=== PATIENT | female | born 1960 | race Caucasian/White ===

== ENCOUNTER → 2016-10-08 | Outpatient (CLI) | payer OTHER, MEDICARE ==
[~2016-10-08] MED LIST: /BACL20TA PO; /PROM25SU; /ROPI25TA PO; AMIT25TA10 PO; AMIT25TA2; AMIT25TA2 PO; CALCCHW12 PO; CENTTAB PO; CLAR10CA3 PO; FISH1000 PO; GABA300C2 PO; GABA300C3 PO; IBUP400T; IBUP600T; LEVO100T7 PO; LIDO5DIS; LIDO5DIS TD; MULTIVIT PO; POTA10TA7 PO; POTA99TA PO; PRIL20CA OR; PRIL20CA PO; PROVIGIL; THERGRAN PO; THYROID MEDICATION; VICO5TAB PO; VITA100T5 PO; VITA400C PO; VITA500046 PO; VITAMIN B COMPLE1 PO; VOLTAREN GEL; [UNRECOGNIZED DRUG - OTHER] PO; [UNRECOGNIZED DRUG - OTHER] PO
--- NOTE | 2016-10-25 02:26 | ECWPNPC ---
PATIENT NAME: RAYRAY SERRA : 1960 GENDER: FEMALE VISIT DATE: 10/08/2016 DISCHARGE DATE: 10/08/16 1510 VISIT LOCKED DATE TIME: PHYSICIAN: CHERRI BRASHER RESOURCE: CHERRI BRASHER REASON FOR APPOINTMENT 1. NECK HISTORY OF PRESENT ILLNESS HISTORY OF PRESENT ILLNESS: PAIN THE PATIENT DESCRIBES THE PAIN... FALL RISK SCREENING: SCREENING :NO FALLS IN THE PAST YEAR TODAY'S VISIT: NOTES: FOLLOWUP FOR NECK PAIN. RATES PAIN TODAY 03/11. HAS NOT BEEN SLEEPING WELL DUE TO PAIN. IS HAVING SIGNIFICAN PAIN RADIATING TO RIGHT ARM AND HAND. IS HAVINGMORE WEAKNESS AND CAN'T LIFT ANYTHING MORE THAN A FEW LBS ON RIGHT. . CURRENT MEDICATIONS TAKING LEVOTHYROXINE SODIUM 100 MCG TABLET 1 TAB(S) ORALLY ONCE A DAY TAKING NEXIUM 40 MG CAPSULE DELAYED RELEASE 1 CAPSULE ORALLY OCC. TAKING LIDOCAINE 5 % PATCH 2 PATCHS TO INTACT SKIN REMOVE AFTER 12 HOURS EXTERNALLY ON 12 HRS/OFF 12 HRS TO NECK AREA MDD=2 TAKING GABAPENTIN 300 300 MG TABLET 1 TABLET ORAL TID TAKING AMITRIPTYLINE HCL 25 MG TABLET 3 TABLET ORALLY QHS TAKING BACLOFEN 20 MG TABLET 1 TAB(S) ORALLY THREE TIMES A DAY TAKING NORCO 5-325 MG TABLET 1 TABLET ORALLY EVERY 4 HRS PRN PAIN MDD=6 CHRONIC PAIN TAKING FLUOXETINE 40 MG CAPSULE 1 CAPSULE IN THE MORNING ORALLY ONCE A DAY NOT-TAKING VITAMIN D 2000 UNIT TABLET 1 TABLET ORALLY ONCE A DAY NOT-TAKING FLUOXETINE HCL 20 MG CAPSULE 1 CAPSULE IN THE MORNING ORALLY ONCE A DAY NOT-TAKING ELAVIL 25MG TABLET 1 TAB(S) ORAL ONCE A DAY NOT-TAKING HYDROCODONE-ACETAMINOPHEN 5-325 MG TABLET 1 TABLET ORALLY EVERY 4 HOURS PRN PAIN MDD=6, NOTES: 0600 NOT-TAKING MULTIVITAMINS OTC TABLET 1 TAB(S) ORALLY OCC. NOT-TAKING CALCIUM 600 + D 600-400 MG-UNIT TABLET 1 TABLET ORALLY OCC. NOT-TAKING POTASSIUM OTC TABLET 1 TAB(S) ORALLY EVERY OTHER DAY NOT-TAKING VITAMIN D-3 5000 UNIT CAPSULE 1 CAPSULE ORALLY ONCE A DAY NOT-TAKING VIIBRYD 40 MG TABLET 1 TAB WITH FOOD PO ONCE DAILY MEDICATION LIST REVIEWED AND RECONCILED WITH THE PATIENT PAST MEDICAL HISTORY MYOFASCIAL PAIN SYNDROME IN HER BACK HYPOTHYROIDISM DEGENERATIVE DISC DISEASE THORACIC OUTLET SYNDROME PERIMENOPAUSAL, SYMPTOMATIC DEPRESSION FIBROMYALGIA VERTIGO ALLERGIES N.K.D.A. 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 NEW PATIENT PAIN DIARY TODAY'S VISITNOTES FROM 0-10, WHAT LEVEL IS YOUR PAIN TODAY?0 PAIN CLINIC PFS, CLERGY, PUBLIC HEALTH REFERRALS PFS REFERRAL NEEDED?NO CLERGY REFERRAL NEEDED?NO PUBLIC HEALTH REFERRAL NEEDED?NO WAS THE PROVIDER NOTIFIED OF ANY PERTINENT INFO?NO PFS REFERRAL NEEDED?NO CLERGY REFERRAL NEEDED?NO PUBLIC HEALTH REFERRAL NEEDED?NO WAS THE PROVIDER NOTIFIED OF ANY PERTINENT INFO?NO REVIEW OF SYSTEMS CONSTITUTIONAL: ANY CHANGE IN YOUR MEDICAL CONDITION? NO . CHILLS NO . FEVER NO . INFECTION: DO YOU HAVE NEW INFECTIONS? NO . DO YOU HAVE HISTORY OF MRSA? NO . MUSCULOSKELETAL: ANY NEW PATTERNS OF PAIN OR NUMBNESS? NO . GASTROENTEROLOGY: ANY NEW CHANGE IN BOWEL CONTROL? NO . GENITOURINARY: ANY NEW CHANGE IN BLADDER CONTROL? NO . IS THERE A CHANCE YOU COULD BE ? NO . HEMATOLOGY/LYMPH: DO YOU TAKE ANY BLOOD THINNERS? (FOR EXAMPLE- COUMADIN, PLAVIX, AGGRENOX, PLATEL, PRADAXA, OR XARELTO) NO . WHEN WAS YOUR LAST DOSE? DATE: TIME: . NEUROLOGY: HAVE YOU FALLEN IN THE PAST 6 MONTHS? NO . ANY NEW EXTREMITY NUMBNESS OR WEAKNESS? NO . CARDIOLOGY: DO YOU HAVE A PACEMAKER OR DEFIBRILLATOR? NO . RESPIRATORY: HAVE YOU BEEN SICK IN THE PAST WEEK? NO . FEVER NO . FLU LIKE SYMPTOMS? NO . COUGH NO . INTEGUMENTARY: DO YOU HAVE ANY RASHES OR OPEN SORES? NO . ALLERGIC/IMMUNO: ARE YOU ALLERGIC TO SHELLFISH OR IV DYE? NO . ANY NEW ALLERGIES? NO . PSYCHIATRIC: DO YOU HAVE THOUGHTS OF HURTING YOURSELF OR SOMEONE ELSE? NO . ARE YOU ABUSED, NEGLECTED, OR IN AN UNSAFE ENVIRONMENT? NO . ENDOCRINOLOGY: ARE YOU DIABETIC? NO . OTHER: DO YOU NEED ANY PRESCRIPTIONS? YES HYDROCODONE, AMITRIPTYLIN, LIDOCAINE PATCH . IF YES, PLEASE LIST: ____ . ANY NEW PROBLEMS WITH YOUR MEDICATIONS? NO . WHEN DID YOU LAST EAT? ____ . WHEN DID YOU LAST DRINK? ____ . WHAT DID YOU LAST DRINK? ____ . NAME OF PERSON DRIVING YOU HOME? ____ . DO YOU HAVE ANY OTHER QUESTIONS OR CONCERNS NO . REVIEWED BY: PROVIDER: CHERRI GAONA . VITAL SIGNS WT 155.2 LBS, HT 62 1/2, BMI 27.93 INDEX, BP 135/77 MM HG, HR 103 /MIN, RR 16 /MIN, TEMP 98.2 F, OXYGEN SAT % 99, NA INITIALS TL 1414, REVIEWED BY: KG. EXAMINATION GENERAL EXAMINATION: PSYCHALERT , ORIENTED X 3 , APPROPRIATE MOOD AND AFFECT . LUNGS:CLEAR TO AUSCULTATION BILATERALLY. HEART:HEART RATE REGULAR. MUSCULOSKELETAL:TRIGGER POINTS:, ELICITED WITH PALPATION OVER CERVICAL SPINOUS PROCESSES AND ACROSS THE TRAPEZIUS MUSCLES BILATERALLY. RESTRICTION OF ROM IS NOTED.TENDER WITH PALPATION OVER CERVICAL SPINOUS PROCESSES AND ACROSS TRAPEZIUS BILATERALLY. MUSCLE STRENGTH 4+ OVER 5 RIGHT UPPER EXTREMITY DISTALLY AND PROXIMALLY. MUSCLE STRENGTH 5 OVER 5 DISTALLY AND PROXIMALLY IN THE LEFT UPPER EXTREMITY.. ASSESSMENTS MYALGIA - M79.1 (PRIMARY) CERVICALGIA - M54.2 CHRONIC PRESCRIPTION OPIATE USE - Z79.899 TREATMENT MYALGIA REFILL LIDOCAINE PATCH, 5 %, 2 PATCHS TO INTACT SKIN REMOVE AFTER 12 HOURS, EXTERNALLY, ON 12 HRS/OFF 12 HRS TO NECK AREA MDD=2, 30 DAY(S), 60, REFILLS 5 REFILL AMITRIPTYLINE HCL TABLET, 25 MG, 3 TABLET, ORALLY, QHS, 90 DAY(S), 90, REFILLS 3 REFILL NORCO TABLET, 5-325 MG, 1 TABLET, ORALLY, EVERY 4 HRS PRN PAIN MDD=6 CHRONIC PAIN, 30 DAY(S), 180, REFILLS 0 START VALIUM TABLET, 5 MG, 1 TABLET NEEDED, ORALLY, Q 8 HRS FOR SEVERE SPASM MDD=3S, 30 DAY(S), 10, REFILLS 0 [facility] MRI SPINE, CERVICAL WITHOUT [id number],SUSAN M 10/08/2016 2:52:20 PM > INCREASED RADICULAR SYMPTOMS, CERVICAL DISC DISPLACEMENT , UPPER EXT WEAKNESS TRIGGER POINT 3 + CHERRI FIGUEROA 10/08/2016 2:50:42 PM > NECK TAPEZIUS BOTH SIDES NOTES: HEAT/ICE TO NECK AREA. DO STRETCHES TOLERATED. CPNTINUE CURRENT MEDS. PROCEDURES PN WORKMANS' COMP OPINION IN YOUR OPINION, WAS THE INCIDENT THAT THE PATIENT DESCRIBED THE COMPETENT MEDICAL CAUSE OF THIS INJURY/ILLNESS? YES ARE THE PATIENT'S COMPLAINTS CONSISTENT WITH HIS/HER HISTORY OF THE INJURY/ILLNESS? YES IS THE PATIENT'S HISTORY OF THE INJURY/ILLNESS CONSISTENT WITH YOUR OBJECTIVE FINDING? YES WHAT IS THE PERCENTAGE OF TEMPORARY IMPAIRMENT? MARKED = 75% IS THE PATIENT WORKING? NO DOCTOR ON SITE: MARJORIE PEARSON MD PROCEDURE CODES FA211 ESTABILISHED PATIENT [facility] CHARGE DISPOSITION & COMMUNICATION FOLLOW UP 6 WEEKS (REASON: WC CHECK AUTH FOR TPI AND MRI) ELECTRONICALLY SIGNED BY PHUONG LUO ON 10/24/2016 AT 01:03 PM EST DISCLAIMER : THIS IS A VISIT SUMMARY EXTRACTED FROM THE [employer] CHART. IT IS NOT A COPY OF THE [employer] PROGRESS NOTE. FANG
== END ==
LOC: M PAIN 14:20
PROVIDERS: ATTEND Nurse Practitioner Family
DX: Z09 Encounter for follow-up examination after completed treatment for conditions other than malignant neoplasm (principal); G89.29 Other chronic pain; M79.1 Myalgia; M54.2 Cervicalgia; E03.9 Hypothyroidism, unspecified; M51.34 Other intervertebral disc degeneration, thoracic region; M96.1 Postlaminectomy syndrome, not elsewhere classified; F32.9 Major depressive disorder, single episode, unspecified; F17.200 Nicotine dependence, unspecified, uncomplicated; Z79.891 Long term (current) use of opiate analgesic; Z79.899 Other long term (current) drug therapy

== ENCOUNTER → 2016-11-30 | Outpatient (CLI) | payer OTHER, MEDICARE ==
[~2016-11-30] MED LIST changes: +GABA-282 PO; -GABA300C3 PO
--- NOTE | 2016-12-13 01:01 | ECWPNPC ---
PATIENT NAME: RAYRAY SERRA : 1960 GENDER: FEMALE VISIT DATE: 11/30/2016 DISCHARGE DATE: 11/30/16 1414 VISIT LOCKED DATE TIME: PHYSICIAN: CHERRI BRASHER RESOURCE: CHERRI BRASHER REASON FOR APPOINTMENT 1. W/C HISTORY OF PRESENT ILLNESS HISTORY OF PRESENT ILLNESS: PAIN THE PATIENT DESCRIBES THE PAIN... FALL RISK SCREENING: SCREENING :NO FALLS IN THE PAST YEAR TODAY'S VISIT: NOTES: FOLLOWUP FOR NECK PAIN. RATES PAIN TODAY 5/10. NOTES PAIN IS CONSTANT, ACHING, TENDER AND SORE. NOTES PAIN IS NOT PROMINENT IN THE RIGHT HAND IT IS AT SOME TIMES. REPORTS MEDICATIONS OF LIDODERM PATCHES, HYDROCODONE, AMITRIPTYLINE AND EFFECTIVE AT KEEPING PAIN MANAGEABLE. DENIES ANY ADVERSE EFFECTS FROM MEDS.. CURRENT MEDICATIONS TAKING LEVOTHYROXINE SODIUM 100 MCG TABLET 1 TAB(S) ORALLY ONCE A DAY TAKING NEXIUM 40 MG CAPSULE DELAYED RELEASE 1 CAPSULE ORALLY OCC. TAKING GABAPENTIN 300 300 MG TABLET 1 TABLET ORAL TID TAKING BACLOFEN 20 MG TABLET 1 TAB(S) ORALLY THREE TIMES A DAY TAKING FLUOXETINE 40 MG CAPSULE 1 CAPSULE IN THE MORNING ORALLY ONCE A DAY TAKING LIDOCAINE 5 % PATCH 2 PATCHS TO INTACT SKIN REMOVE AFTER 12 HOURS EXTERNALLY ON 12 HRS/OFF 12 HRS TO NECK AREA MDD=2 TAKING AMITRIPTYLINE HCL 25 MG TABLET 3 TABLET ORALLY QHS TAKING NORCO 5-325 MG TABLET 1 TABLET ORALLY EVERY 4 HRS PRN PAIN MDD=6 CHRONIC PAIN TAKING VALIUM 5 MG TABLET 1 TABLET NEEDED ORALLY Q 8 HRS FOR SEVERE SPASM MDD=3S TAKING VITAMIN D (ERGOCALCIFEROL) 18042 UNIT CAPSULE 1 CAPSULE ORALLY MONTHLY NOT-TAKING ELAVIL 25MG TABLET 1 TAB(S) ORAL ONCE A DAY DISCONTINUED VITAMIN D 2000 UNIT TABLET 1 TABLET ORALLY ONCE A DAY DISCONTINUED FLUOXETINE HCL 20 MG CAPSULE 1 CAPSULE IN THE MORNING ORALLY ONCE A DAY DISCONTINUED HYDROCODONE-ACETAMINOPHEN 5-325 MG TABLET 1 TABLET ORALLY EVERY 4 HOURS PRN PAIN MDD=6, NOTES: 0600 DISCONTINUED MULTIVITAMINS OTC TABLET 1 TAB(S) ORALLY OCC. DISCONTINUED CALCIUM 600 + D 600-400 MG-UNIT TABLET 1 TABLET ORALLY OCC. DISCONTINUED POTASSIUM OTC TABLET 1 TAB(S) ORALLY EVERY OTHER DAY DISCONTINUED VITAMIN D-3 5000 UNIT CAPSULE 1 CAPSULE ORALLY ONCE A DAY DISCONTINUED VIIBRYD 40 MG TABLET 1 TAB WITH FOOD PO ONCE DAILY MEDICATION LIST REVIEWED AND RECONCILED WITH THE PATIENT PAST MEDICAL HISTORY MYOFASCIAL PAIN SYNDROME IN HER BACK HYPOTHYROIDISM DEGENERATIVE DISC DISEASE THORACIC OUTLET SYNDROME PERIMENOPAUSAL, SYMPTOMATIC DEPRESSION FIBROMYALGIA VERTIGO ALLERGIES N.K.D.A. SOCIAL HISTORY GENERAL: PAIN CLINIC PFS, CLERGY, PUBLIC HEALTH REFERRALS CLERGY REFERRAL NEEDED?NO WAS THE PROVIDER NOTIFIED OF ANY PERTINENT INFO?NO PFS REFERRAL NEEDED?NO PUBLIC HEALTH REFERRAL NEEDED?NO PATIENT: ____. REVIEW OF SYSTEMS CONSTITUTIONAL: ANY CHANGE IN YOUR MEDICAL CONDITION? NO . CHILLS NO . FEVER NO . INFECTION: DO YOU HAVE NEW INFECTIONS? NO . DO YOU HAVE HISTORY OF MRSA? NO . MUSCULOSKELETAL: ANY NEW PATTERNS OF PAIN OR NUMBNESS? NO . GASTROENTEROLOGY: ANY NEW CHANGE IN BOWEL CONTROL? NO . GENITOURINARY: ANY NEW CHANGE IN BLADDER CONTROL? NO . IS THERE A CHANCE YOU COULD BE ? NO . HEMATOLOGY/LYMPH: DO YOU TAKE ANY BLOOD THINNERS? (FOR EXAMPLE- COUMADIN, PLAVIX, AGGRENOX, PLATEL, PRADAXA, OR XARELTO) NO . WHEN WAS YOUR LAST DOSE? DATE: TIME: . NEUROLOGY: HAVE YOU FALLEN IN THE PAST 6 MONTHS? NO . ANY NEW EXTREMITY NUMBNESS OR WEAKNESS? NO . CARDIOLOGY: DO YOU HAVE A PACEMAKER OR DEFIBRILLATOR? NO . RESPIRATORY: HAVE YOU BEEN SICK IN THE PAST WEEK? NO . FEVER NO . FLU LIKE SYMPTOMS? NO . COUGH NO . INTEGUMENTARY: DO YOU HAVE ANY RASHES OR OPEN SORES? YES, HAD A RASH AND TREATED FOR IT. RASH IS GONE. LEFT HIP AND BUTTUCKS . ALLERGIC/IMMUNO: ARE YOU ALLERGIC TO SHELLFISH OR IV DYE? NO . ANY NEW ALLERGIES? NO . PSYCHIATRIC: DO YOU HAVE THOUGHTS OF HURTING YOURSELF OR SOMEONE ELSE? NO . ARE YOU ABUSED, NEGLECTED, OR IN AN UNSAFE ENVIRONMENT? NO . ENDOCRINOLOGY: ARE YOU DIABETIC? NO . OTHER: DO YOU NEED ANY PRESCRIPTIONS? NO . IF YES, PLEASE LIST: ____ . ANY NEW PROBLEMS WITH YOUR MEDICATIONS? NO . WHEN DID YOU LAST EAT? ____ . WHEN DID YOU LAST DRINK? ____ . WHAT DID YOU LAST DRINK? ____ . NAME OF PERSON DRIVING YOU HOME? ____ . DO YOU HAVE ANY OTHER QUESTIONS OR CONCERNS NO . REVIEWED BY: PROVIDER: CHERRI WALKER SUPERVISOR [employer] . VITAL SIGNS WT 157.6 LBS, HT 62 1/2, BMI 28.36 INDEX, BP 109/70 MM HG, HR 101 /MIN, RR 16 /MIN, TEMP 98.5 F, OXYGEN SAT % 93, NA INITIALS AW137, REVIEWED BY: JOSIE. EXAMINATION GENERAL EXAMINATION: PSYCHALERT , ORIENTED X 3 , APPROPRIATE MOOD AND AFFECT . LUNGS:CLEAR TO AUSCULTATION BILATERALLY. HEART:HEART RATE REGULAR. MUSCULOSKELETAL:TRIGGER POINTS:, ELICITED WITH PALPATION OVER CERVICAL SPINOUS PROCESSES AND ACROSS THE TRAPEZIUS MUSCLES BILATERALLY. RESTRICTION OF ROM IS NOTED.TENDER WITH PALPATION OVER CERVICAL SPINOUS PROCESSES AND ACROSS TRAPEZIUS BILATERALLY. MUSCLE STRENGTH 4+ OVER 5 RIGHT UPPER EXTREMITY DISTALLY AND PROXIMALLY. MUSCLE STRENGTH 5 OVER 5 DISTALLY AND PROXIMALLY IN THE LEFT UPPER EXTREMITY.. DIAGNOSTIC TESTS REVIEWEDMRI OF CERVICAL SPINE REVIEWED. ASSESSMENTS MYALGIA - M79.1 (PRIMARY) CERVICALGIA - M54.2 CHRONIC PRESCRIPTION OPIATE USE - Z79.899 TREATMENT MYALGIA NOTES: CONTINUE CURRENT MEDS AND LIDODERM PATCHES. WALK AND DO STRETCHES DAILY. CALL WHEN SCRIPTS NEEDED. CLINICAL NOTES: ISTOP REGISTRY REVIEWED AND DEMNOSTRATES COMPLLIANCE. BRINGS IN MEDICATIONS WHICH IS APPROPRIATE FOR WHAT WAS DISPENSED. RECENT URINE TOXICOLOGY REVIEWED. NO UNAUTHORIZED MEDICATIONS. NO ILLICIT SUBSTANCES AND PRESCRIBED MEDICATIONS WERE PRESENT. PROCEDURES PN WORKMANS' COMP OPINION IN YOUR OPINION, WAS THE INCIDENT THAT THE PATIENT DESCRIBED THE COMPETENT MEDICAL CAUSE OF THIS INJURY/ILLNESS? YES ARE THE PATIENT'S COMPLAINTS CONSISTENT WITH HIS/HER HISTORY OF THE INJURY/ILLNESS? YES IS THE PATIENT'S HISTORY OF THE INJURY/ILLNESS CONSISTENT WITH YOUR OBJECTIVE FINDING? YES WHAT IS THE PERCENTAGE OF TEMPORARY IMPAIRMENT? MARKED = 75% IS THE PATIENT WORKING? NO DOCTOR ON SITE: MARJORIE PEARSON MD PROCEDURE CODES FA211 ESTABILISHED PATIENT [facility] FAC[facility] CHARGE DISPOSITION & COMMUNICATION FOLLOW UP [address] KRISHNAMURTHY (REASON: WC NECK) ELECTRONICALLY SIGNED BY PHUONG LUO ON 12/12/2016 AT 06:36 PM EDT DISCLAIMER : THIS IS A VISIT SUMMARY EXTRACTED FROM THE [employer] CHART. IT IS NOT A COPY OF THE [employer] PROGRESS NOTE. FANG
== END ==
LOC: M PAIN 13:40
PROVIDERS: ATTEND Nurse Practitioner Family
DX: M79.1 Myalgia (principal); M54.2 Cervicalgia; E03.9 Hypothyroidism, unspecified; F32.9 Major depressive disorder, single episode, unspecified; R42 Dizziness and giddiness; G54.0 Brachial plexus disorders; N95.1 Menopausal and female climacteric states; Z79.899 Other long term (current) drug therapy; Z79.891 Long term (current) use of opiate analgesic

== ENCOUNTER → 2017-03-01 | Outpatient (CLI) | payer OTHER, MEDICARE ==
--- NOTE | 2017-03-20 04:41 | ECWPNPC ---
PATIENT NAME: RAYRAY SERRA : 1960 GENDER: FEMALE VISIT DATE: 03/01/2017 DISCHARGE DATE: 03/01/17 1446 VISIT LOCKED DATE TIME: PHYSICIAN: CHERRI BRASHER RESOURCE: CHERRI BRASHER REASON FOR APPOINTMENT 1. BACK HISTORY OF PRESENT ILLNESS HISTORY OF PRESENT ILLNESS: PAIN THE PATIENT DESCRIBES THE PAIN... FALL RISK SCREENING: SCREENING :NO FALLS IN THE PAST YEAR TODAY'S VISIT: NOTES: FOLLOWUP FOR NECK PAIN. NECK PAIN 5/10 TODAY. DESCRIBES PAIN CONSTANT, ACHING, TENDER, THROBBING AND SORE. NOTES STRENGTH NEAR NORMAL TODAY BUT THIS DOES CHANGE. PAIN REMAINS CENTERED OVER BASE OF NECK RITH RADIATION DOWN BOTH ARMS AND OVER SCAPULA. CURRENT MEDICATIONS TAKING LEVOTHYROXINE SODIUM 100 MCG TABLET 1 TAB(S) ORALLY ONCE A DAY TAKING NEXIUM 40 MG CAPSULE DELAYED RELEASE 1 CAPSULE ORALLY OCC. TAKING GABAPENTIN 300 300 MG TABLET 1 TABLET ORAL TID, NOTES: 03/01/17 AT 0700 TAKING LIDOCAINE 5 % PATCH 2 PATCHS TO INTACT SKIN REMOVE AFTER 12 HOURS EXTERNALLY ON 12 HRS/OFF 12 HRS TO NECK AREA MDD=2 TAKING VITAMIN D (ERGOCALCIFEROL) 48554 UNIT CAPSULE 1 CAPSULE ORALLY MONTHLY TAKING BACLOFEN 20 MG TABLET 1 TAB(S) ORALLY THREE TIMES A DAY TAKING VALIUM 5 MG TABLET 1 TABLET NEEDED ORALLY Q 8 HRS FOR SEVERE SPASM MDD=3S, NOTES: LAST MONTH TAKING AMITRIPTYLINE HCL 25 MG TABLET 3 TABLET ORALLY QHS TAKING NORCO 5-325 MG TABLET 1 TABLET ORALLY EVERY 4 HRS PRN PAIN MDD=6 CHRONIC PAIN, NOTES: 03/01/17 AT 0700 TAKING CETIRIZINE HCL 10 MG TABLET 1 TABLET ORALLY ONCE A DAY TAKING SIMVASTATIN 20 MG TABLET 1 TABLET IN THE EVENING ORALLY ONCE A DAY NOT-TAKING FLUOXETINE 40 MG CAPSULE 1 CAPSULE IN THE MORNING ORALLY ONCE A DAY NOT-TAKING ELAVIL 25MG TABLET 1 TAB(S) ORAL ONCE A DAY MEDICATION LIST REVIEWED AND RECONCILED WITH THE PATIENT PAST MEDICAL HISTORY MYOFASCIAL PAIN SYNDROME IN HER BACK HYPOTHYROIDISM DEGENERATIVE DISC DISEASE THORACIC OUTLET SYNDROME PERIMENOPAUSAL, SYMPTOMATIC DEPRESSION FIBROMYALGIA VERTIGO ALLERGIES N.K.D.A. SOCIAL HISTORY GENERAL: TOBACCO USE ARE YOU A:: CURRENT SMOKER , HOW OFTEN DO YOU SMOKE CIGARETTES?: EVERY DAY, HOW MANY CIGARETTES A DAY DO YOU SMOKE?: 11-20, HOW SOON AFTER YOU WAKE UP DO YOU SMOKE YOUR FIRST CIGARETTE?: WITHIN 5 MIN, ARE YOU INTERESTED IN QUITTING?: NOT READY TO QUIT. RECREATIONAL DRUG USE DENIES. CAFFEINE 2 CUPS DAILY. 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 NOW THAT THERE WILL BE A CHANGE IN MGMT, SHE IS PREPARING TO RETURN. . DIET: HAS IMPROVED. INCREASED FRUIT. EXERCISE: NONE. OTHERS AT HOME: SPOUSE, DAUGHTER AND GRANDDAUGHTER AGE 15. ISLAM [id number] PFS, CLERGY, PUBLIC HEALTH REFERRALS PFS REFERRAL NEEDED?NO CLERGY REFERRAL NEEDED?NO PUBLIC HEALTH REFERRAL NEEDED?NO HAS THE PATIENT BEEN EDUCATED REGARDING HIS/HER PLAN OF CARE?YES HAS THE PATIENT BEEN EDUCATED REGARDING PAIN, THE RISK FOR PAIN, THE IMPORTANCE OF EFFECTIVE PAIN MANAGEMENT, AND THE PAIN ASSESSMENT PROCESS?YES DOMESTIC VIOLENCE DENIES. REVIEW OF SYSTEMS REVIEWED BY: PROVIDER: CHERRI GAONA . CONSTITUTIONAL: ANY CHANGE IN YOUR MEDICAL CONDITION? NO . CHILLS NO . FEVER NO . INFECTION: DO YOU HAVE NEW INFECTIONS? NO . DO YOU HAVE HISTORY OF MRSA? NO . MUSCULOSKELETAL: ANY NEW PATTERNS OF PAIN OR NUMBNESS? NO . GASTROENTEROLOGY: ANY NEW CHANGE IN BOWEL CONTROL? NO . GENITOURINARY: ANY NEW CHANGE IN BLADDER CONTROL? NO . IS THERE A CHANCE YOU COULD BE ? NO . HEMATOLOGY/LYMPH: DO YOU TAKE ANY BLOOD THINNERS? (FOR EXAMPLE- COUMADIN, PLAVIX, AGGRENOX, PLATEL, PRADAXA, OR XARELTO) NO . WHEN WAS YOUR LAST DOSE? DATE: TIME: . NEUROLOGY: HAVE YOU FALLEN IN THE PAST 6 MONTHS? NO . ANY NEW EXTREMITY NUMBNESS OR WEAKNESS? NO . CARDIOLOGY: DO YOU HAVE A PACEMAKER OR DEFIBRILLATOR? NO . RESPIRATORY: HAVE YOU BEEN SICK IN THE PAST WEEK? NO . FEVER NO . FLU LIKE SYMPTOMS? NO . COUGH NO . INTEGUMENTARY: DO YOU HAVE ANY RASHES OR OPEN SORES? NO . ALLERGIC/IMMUNO: ARE YOU ALLERGIC TO SHELLFISH OR IV DYE? NO . ANY NEW ALLERGIES? NO . PSYCHIATRIC: DO YOU HAVE THOUGHTS OF HURTING YOURSELF OR SOMEONE ELSE? NO . ARE YOU ABUSED, NEGLECTED, OR IN AN UNSAFE ENVIRONMENT? NO . ENDOCRINOLOGY: ARE YOU DIABETIC? NO . OTHER: DO YOU NEED ANY PRESCRIPTIONS? NO . IF YES, PLEASE LIST: ____ . ANY NEW PROBLEMS WITH YOUR MEDICATIONS? NO . WHEN DID YOU LAST EAT? ____ . WHEN DID YOU LAST DRINK? ____ . WHAT DID YOU LAST DRINK? ____ . NAME OF PERSON DRIVING YOU HOME? ____ . DO YOU HAVE ANY OTHER QUESTIONS OR CONCERNS NO . SKIN: DO YOU HAVE ANY RASHES OR OPEN SORES? INTERMITTANT RASH - UNKNOWN SOURCE. TREATED BY PCP WITH PREDNISONE . VITAL SIGNS WT 155 LBS, HT 62 1/2, BMI 27.90 INDEX, BP 119/69 MM HG, HR 101 /MIN, RR 16 /MIN, TEMP 98.5 F, OXYGEN SAT % 95, NA INITIALS AW 1403, REVIEWED BY: CS. EXAMINATION GENERAL EXAMINATION: PSYCHALERT , ORIENTED X 3 , APPROPRIATE MOOD AND AFFECT . LUNGS:CLEAR TO AUSCULTATION BILATERALLY. HEART:HEART RATE REGULAR. MUSCULOSKELETAL:TRIGGER POINTS:, ELICITED WITH PALPATION OVER CERVICAL SPINOUS PROCESSES AND ACROSS THE TRAPEZIUS MUSCLES BILATERALLY. RESTRICTION OF ROM IS NOTED.TENDER WITH PALPATION OVER CERVICAL SPINOUS PROCESSES AND ACROSS TRAPEZIUS BILATERALLY. MUSCLE STRENGTH 4+ OVER 5 RIGHT UPPER EXTREMITY DISTALLY AND PROXIMALLY. MUSCLE STRENGTH 5 OVER 5 DISTALLY AND PROXIMALLY IN THE LEFT UPPER EXTREMITY.. DIAGNOSTIC TESTS REVIEWEDMRI OF CERVICAL SPINE REVIEWED. ASSESSMENTS MYALGIA - M79.1 (PRIMARY) CERVICALGIA - M54.2 CHRONIC PRESCRIPTION OPIATE USE - Z79.899 TREATMENT MYALGIA NOTES: UTOX TODAY. CONTINUE CURRENT MEDS. USE MASSAGE TO NECK AND SHOULDER AREAS. CLINICAL NOTES: ISTOP REGISTRY REVIEWED AND DEMNOSTRATES COMPLLIANCE. BRINGS IN MEDICATIONS WHICH IS APPROPRIATE FOR WHAT WAS DISPENSED. RECENT URINE TOXICOLOGY REVIEWED. NO UNAUTHORIZED MEDICATIONS. NO ILLICIT SUBSTANCES AND PRESCRIBED MEDICATIONS WERE PRESENT. PROCEDURES PN WORKMANS' COMP OPINION IN YOUR OPINION, WAS THE INCIDENT THAT THE PATIENT DESCRIBED THE COMPETENT MEDICAL CAUSE OF THIS INJURY/ILLNESS? YES ARE THE PATIENT'S COMPLAINTS CONSISTENT WITH HIS/HER HISTORY OF THE INJURY/ILLNESS? YES IS THE PATIENT'S HISTORY OF THE INJURY/ILLNESS CONSISTENT WITH YOUR OBJECTIVE FINDING? YES WHAT IS THE PERCENTAGE OF TEMPORARY IMPAIRMENT? MODERATE TO MARKED = 66.7% IS THE PATIENT WORKING? NO DOCTOR ON SITE: MARJORIE PEARSON MD PROCEDURE CODES FA211 ESTABILISHED PATIENT [facility] FACILITY CHARGE DISPOSITION & COMMUNICATION FOLLOW UP 3 MONTHS (REASON: WC NECK) ELECTRONICALLY SIGNED BY PHUONG LUO ON 03/19/2017 AT 06:01 PM EDT DISCLAIMER : THIS IS A VISIT SUMMARY EXTRACTED FROM THE [employer] CHART. IT IS NOT A COPY OF THE [employer] PROGRESS NOTE. FANG
== END ==
LOC: M PAIN 15:00
PROVIDERS: ATTEND Nurse Practitioner Family
DX: G89.29 Other chronic pain (principal); M54.2 Cervicalgia; M79.1 Myalgia; G54.0 Brachial plexus disorders; E03.9 Hypothyroidism, unspecified; F32.9 Major depressive disorder, single episode, unspecified; R42 Dizziness and giddiness; F17.210 Nicotine dependence, cigarettes, uncomplicated; Z79.891 Long term (current) use of opiate analgesic; Z79.899 Other long term (current) drug therapy

== ENCOUNTER → 2017-06-04 | Outpatient (REF) | payer MEDICARE | LOC: M SFHCWAGY 11:04 | PROVIDERS: ATTEND Nurse Practitioner Family | DX: Z12.4 Encounter for screening for malignant neoplasm of cervix (principal) ==

== ENCOUNTER → 2017-06-04 | Outpatient (CLI) | payer MEDICARE, OTHER ==
--- NOTE | 2017-06-04 12:09 | REP ---
BILATERAL SCREENING DIGITAL MAMMOGRAM: Comparison is 06/21/2011. There is dense heterogeneous breast parenchyma, unchanged. There has been no interval development of masses, areas of structural distortion or clusters of microcalcifications typical of malignancy. Impression: There is no evidence of malignancy. BI-RADS category 1, negative mammogram. The patient should have a repeat mammogram in 1 year. This mammogram was interpreted with the aid of an FDA-approved computer-aided detection system. A. Negative x-ray reports should not delay biopsy if a dominant or clinically suspicious mass is present. B. Four to eight percent of cancers are not identified by x-ray. C. Adenosis and dense breasts may obscure an underlying neoplasm. The patient letter being requested is M1, dense breasts.
== END ==
LOC: M WHC 10:23
PROVIDERS: ATTEND Nurse Practitioner Family
DX: Z12.31 Encounter for screening mammogram for malignant neoplasm of breast (principal); Z12.4 Encounter for screening for malignant neoplasm of cervix; Z12.12 Encounter for screening for malignant neoplasm of rectum
CPT/HCPCS: 82270; G0101; G0123; G0202

== ENCOUNTER → 2017-06-27 | Outpatient (CLI) | payer OTHER ==
--- NOTE | 2017-07-29 00:48 | ECWPNPC ---
PATIENT NAME: RAYRAY SERRA : 1960 GENDER: FEMALE VISIT DATE: 06/27/2017 DISCHARGE DATE: 06/27/17 1518 VISIT LOCKED DATE TIME: PHYSICIAN: CHERRI BRASHER RESOURCE: CHERRI BRASHER REASON FOR APPOINTMENT 1. NECK HISTORY OF PRESENT ILLNESS HISTORY OF PRESENT ILLNESS: PAIN THE PATIENT DESCRIBES THE PAIN... FALL RISK SCREENING: SCREENING :NO FALLS IN THE PAST YEAR TODAY'S VISIT: NOTES: FOLLOWUP FOR NECK PAIN. RATES PAIN TODAY 5/10. DESCRIBES PAIN CONSTANT AND ACHING, TENDER, THROBBING AND SORE. PAIN IS CENTERED AT BASE OF NECK WITH RADIATING TO MUSCLES OF UPPER BACK AND INTO ARMS. STATES IS ABLE TO ISE HER PAIN MEDS INFREQUENTLY. CURRENT MEDICATIONS TAKING LEVOTHYROXINE SODIUM 100 MCG TABLET 1 TAB(S) ORALLY ONCE A DAY TAKING NEXIUM 40 MG CAPSULE DELAYED RELEASE 1 CAPSULE ORALLY OCC. TAKING BACLOFEN 20 MG TABLET 1 TAB(S) ORALLY THREE TIMES A DAY TAKING CETIRIZINE HCL 10 MG TABLET 1 TABLET ORALLY ONCE A DAY TAKING SIMVASTATIN 20 MG TABLET 1 TABLET IN THE EVENING ORALLY ONCE A DAY TAKING GABAPENTIN 300 300 MG TABLET 1 TABLET ORAL TID TAKING LIDOCAINE 5 % PATCH 2 PATCHS TO INTACT SKIN REMOVE AFTER 12 HOURS EXTERNALLY ON 12 HRS/OFF 12 HRS TO NECK AREA MDD=2 TAKING NORCO 5-325 MG TABLET 1 TABLET ORALLY EVERY 4 HRS PRN PAIN MDD=6 CHRONIC PAIN TAKING VALIUM 5 MG TABLET 1 TABLET NEEDED ORALLY Q 8 HRS FOR SEVERE SPASM MDD=3S TAKING ESTRACE 0.1 MG/GM CREAM 0.5 GM VAGINAL EVERY NIGHT X 14 THEN TWICE A WEEK TAKING AMITRIPTYLINE HCL 25 MG TABLET 3 TABLET ORALLY QHS TAKING PROZAC 20 MG CAPSULE 1 CAPSULE IN THE MORNING ORALLY ONCE A DAY NOT-TAKING VITAMIN D (ERGOCALCIFEROL) 35129 UNIT CAPSULE 1 CAPSULE ORALLY MONTHLY NOT-TAKING FLUOXETINE 40 MG CAPSULE 1 CAPSULE IN THE MORNING ORALLY ONCE A DAY NOT-TAKING ELAVIL 25MG TABLET 1 TAB(S) ORAL ONCE A DAY MEDICATION LIST REVIEWED AND RECONCILED WITH THE PATIENT PAST MEDICAL HISTORY MYOFASCIAL PAIN SYNDROME IN HER BACK HYPOTHYROIDISM DEGENERATIVE DISC DISEASE THORACIC OUTLET SYNDROME PERIMENOPAUSAL, SYMPTOMATIC DEPRESSION FIBROMYALGIA VERTIGO ALLERGIES N.K.D.A. SOCIAL HISTORY GENERAL: TOBACCO USE ARE YOU A:CURRENT SMOKER ARE YOU INTERESTED IN QUITTING?NOT READY TO QUIT COUNSELED THE PATIENT ON SMOKING EFFECTS, EDUCATION [id number]/03/2017 HOW MANY CIGARETTES A DAY DO YOU SMOKE?11-20 HOW SOON AFTER YOU WAKE UP DO YOU SMOKE YOUR FIRST CIGARETTE?WITHIN 5 MIN HOW OFTEN DO YOU SMOKE CIGARETTES?EVERY DAY PATIENT COUNSELED ON THE DANGERS OF TOBACCO USE AND URGED TO QUIT:06/04/2017 RECREATIONAL DRUG USE DENIES. CAFFEINE 2 CUPS DAILY. 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 NOW THAT THERE WILL BE A CHANGE IN MGMT, SHE IS PREPARING TO RETURN. . DIET: HAS IMPROVED. INCREASED FRUIT. EXERCISE: NONE. MARITAL STATUS: . OTHERS AT HOME: SPOUSE. PETS: 2 DOGS. 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 NEEDED?NO PAIN CLINIC PFS, CLERGY, PUBLIC HEALTH REFERRALS PFS REFERRAL NEEDED?NO CLERGY REFERRAL NEEDED?NO PUBLIC HEALTH REFERRAL NEEDED?NO HAS THE PATIENT BEEN EDUCATED REGARDING HIS/HER PLAN OF CARE?YES HAS THE PATIENT BEEN EDUCATED REGARDING PAIN, THE RISK FOR PAIN, THE IMPORTANCE OF EFFECTIVE PAIN MANAGEMENT, AND THE PAIN ASSESSMENT PROCESS?YES ADVANCE DIRECTIVES HEALTH CARE PROXY?NO WOULD YOU LIKE MORE INFORMATION?NO DO YOU HAVE A DNR?NO WOULD YOU LIKE MORE INFORMATION?NO LIVING WILL?NO WOULD YOU LIKE MORE INFORMATION?NO POWER OF RN TEAM LEADER?NO WOULD YOU LIKE MORE INFORMATION?NO DOMESTIC VIOLENCE DENIES. REVIEW OF SYSTEMS REVIEWED BY: PROVIDER: CHERRI GAONA . CONSTITUTIONAL: ANY CHANGE IN YOUR MEDICAL CONDITION? NO . CHILLS NO . FEVER NO . INFECTION: DO YOU HAVE NEW INFECTIONS? NO . DO YOU HAVE HISTORY OF MRSA? NO . MUSCULOSKELETAL: ANY NEW PATTERNS OF PAIN OR NUMBNESS? NO . GASTROENTEROLOGY: ANY NEW CHANGE IN BOWEL CONTROL? NO . GENITOURINARY: ANY NEW CHANGE IN BLADDER CONTROL? NO . IS THERE A CHANCE YOU COULD BE ? NO . HEMATOLOGY/LYMPH: DO YOU TAKE ANY BLOOD THINNERS? (FOR EXAMPLE- COUMADIN, PLAVIX, AGGRENOX, PLATEL, PRADAXA, OR XARELTO) NO . WHEN WAS YOUR LAST DOSE? DATE: TIME: . NEUROLOGY: HAVE YOU FALLEN IN THE PAST 6 MONTHS? NO . ANY NEW EXTREMITY NUMBNESS OR WEAKNESS? NO . CARDIOLOGY: DO YOU HAVE A PACEMAKER OR DEFIBRILLATOR? NO . RESPIRATORY: HAVE YOU BEEN SICK IN THE PAST WEEK? NO . FEVER NO . FLU LIKE SYMPTOMS? NO . COUGH NO . INTEGUMENTARY: DO YOU HAVE ANY RASHES OR OPEN SORES? NO . ALLERGIC/IMMUNO: ARE YOU ALLERGIC TO SHELLFISH OR IV DYE? NO . ANY NEW ALLERGIES? NO . PSYCHIATRIC: DO YOU HAVE THOUGHTS OF HURTING YOURSELF OR SOMEONE ELSE? NO . ARE YOU ABUSED, NEGLECTED, OR IN AN UNSAFE ENVIRONMENT? NO . ENDOCRINOLOGY: ARE YOU DIABETIC? NO . OTHER: DO YOU NEED ANY PRESCRIPTIONS? NO . IF YES, PLEASE LIST: ____ . ANY NEW PROBLEMS WITH YOUR MEDICATIONS? NO . WHEN DID YOU LAST EAT? ____ . WHEN DID YOU LAST DRINK? ____ . WHAT DID YOU LAST DRINK? ____ . NAME OF PERSON DRIVING YOU HOME? ____ . DO YOU HAVE ANY OTHER QUESTIONS OR CONCERNS NO . VITAL SIGNS WT 147.4 LBS, HT 62 1/2, BMI 26.53 INDEX, BP 119/72 MM HG, HR 94 /MIN, RR 16 /MIN, TEMP 98.6 F, OXYGEN SAT % 99%, SAFE IN ENV? (Y/N) YES, NA INITIALS TL 1434, REVIEWED BY: CS. EXAMINATION GENERAL EXAMINATION: PSYCHALERT , ORIENTED X 3 , APPROPRIATE MOOD AND AFFECT . LUNGS:CLEAR TO AUSCULTATION BILATERALLY. HEART:HEART RATE REGULAR. MUSCULOSKELETAL:TRIGGER POINTS AND TIGHT FIBROUS BANDS IDENTIFIED BY PALPATION OVER BILATERAL TRAPEZIUS MUSCLES. . DECREASED ROM AT NECK WITH ROTATION, FLEXION AND EXTENSION . BLACK PULLER STRENGTH DECREASED EFT SIDE ONLY. ASSESSMENTS MYALGIA - M79.1 (PRIMARY) CERVICALGIA - M54.2 CHRONIC PRESCRIPTION OPIATE USE - Z79.899 TREATMENT MYALGIA NOTES: CONTINUE CURRENT MEDS. EXERCISE AND STRETCH EVERY DAY. CALL WHEN SCRIPTS DUE. CLINICAL NOTES: ISTOP REGISTRY REVIEWED AND DEMNOSTRATES COMPLLIANCE. ( REF # [id number]) RISKS AND BENEFITS OF NARCOTIC/OPIOD MEDICATIONS WERE REVIEWED WITH PATIENT - THIS INCLUDES BUT IS NOT LIMITED TO RISK OF DEPENDANCE/DEVELOPMENT OF ADDICTION, MOOD DISTURBANCE AND DEPRESSION, OSTEOPOROSIS, HORMONAL AND LABIDAL CHANGES, RESPIRATORY DEPRESSION AND . PATIENT IS ADVISED NOT TO DRIVE WHILE ON THESE MEDICATIONS, BRINGS IN MEDICATIONS WHICH IS APPROPRIATE FOR WHAT WAS DISPENSED. RECENT URINE TOXICOLOGY REVIEWED. NO UNAUTHORIZED MEDICATIONS. NO ILLICIT SUBSTANCES AND PRESCRIBED MEDICATIONS WERE PRESENT. PROCEDURES PN WORKMANS' COMP OPINION IN YOUR OPINION, WAS THE INCIDENT THAT THE PATIENT DESCRIBED THE COMPETENT MEDICAL CAUSE OF THIS INJURY/ILLNESS? YES ARE THE PATIENT'S COMPLAINTS CONSISTENT WITH HIS/HER HISTORY OF THE INJURY/ILLNESS? YES IS THE PATIENT'S HISTORY OF THE INJURY/ILLNESS CONSISTENT WITH YOUR OBJECTIVE FINDING? YES WHAT IS THE PERCENTAGE OF TEMPORARY IMPAIRMENT? MODERATE TO MARKED = 66.7% IS THE PATIENT WORKING? YES , ANY RESTRICTIONS? UNKNOWN DOCTOR ON SITE: MARJORIE PEARSON MD PROCEDURE CODES FA211 ESTABILISHED PATIENT [facility] FACILITY CHARGE DISPOSITION & COMMUNICATION FOLLOW UP 3 MONTHS (REASON: WC NECK) ELECTRONICALLY SIGNED BY PHUONG LUO ON 07/28/2017 AT 12:22 PM EST DISCLAIMER : THIS IS A VISIT SUMMARY EXTRACTED FROM THE [employer]. CHART. IT IS NOT A COPY OF THE [employer] PROGRESS NOTE. FANG
== END ==
LOC: M PAIN 14:00
PROVIDERS: ATTEND Nurse Practitioner Family
DX: M79.1 Myalgia (principal); M54.2 Cervicalgia; E03.9 Hypothyroidism, unspecified; F32.9 Major depressive disorder, single episode, unspecified; F17.210 Nicotine dependence, cigarettes, uncomplicated; Z79.899 Other long term (current) drug therapy; Z79.891 Long term (current) use of opiate analgesic

== ENCOUNTER → 2017-08-12 | Outpatient (CLI) | payer MEDICARE, MEDICAID ==
[2017-08-12 07:09] LABS: BASO # 0.1 10^3/uL (0.0-0.2); BASO % 0.8 % (0.0-1.0); EOS # 0.2 10^3/uL (0.0-0.50); EOS % 2.7 % (0.0-3.0); IMMATURE GRANULOCYTE % 0.3 % (0-0); LYMPH # 2.3 10^3/uL (1.5-4.5); LYMPH % 31.4 % (24.0-44.0); MEAN CORPUSCULAR HEMOGLOBIN 30.2 pg (27.0-33.0); MEAN CORPUSCULAR VOLUME 88.7 fl (80.0-96.0); MONO # 0.5 10^3/uL (0.0-0.8); MONO % 7.1 % (0.0-5.0); NEUTROPHILS # 4.3 10^3/uL (1.8-7.7); NEUTROPHILS % 57.7 % (36.0-66.0); PLATELET COUNT, AUTOMATED 269 10^3/uL (150-450); RED CELL DISTRIBUTION WIDTH 12.3 % (11.5-14.5); WHITE BLOOD COUNT 7.5 10^3/uL (4.0-10.0)
[2017-08-12 07:39] LABS: ALBUMIN 4.2 GM/DL (3.2-5.2); ALBUMIN/GLOBULIN RATIO 1.17 (1.00-1.93); ALKALINE PHOSPHATASE 74 U/L (45-117); ALT/SGPT 29 U/L (12-78); ANION GAP 7 MEQ/L (8-16); AST/SGOT 18 U/L (7-37); BILIRUBIN,TOTAL 0.5 MG/DL (0.2-1.0); BLOOD UREA NITROGEN 11 MG/DL (7-18); CALCIUM LEVEL 9.2 MG/DL (8.5-10.1); CARBON DIOXIDE LEVEL 28 MEQ/L (21-32); CHLORIDE LEVEL 106 MEQ/L (98-107); CHOLESTEROL LEVEL 164 MG/DL (<200); CREATININE FOR GFR 0.67 MG/DL (0.55-1.02); GLOMERULAR FILTRATION RATE > 60.0 (>51); GLUCOSE, FASTING 95 MG/DL (70-105); POTASSIUM SERUM 4.2 MEQ/L (3.5-5.1); SODIUM LEVEL 141 MEQ/L (136-145); TOTAL PROTEIN 7.8 GM/DL (6.4-8.2); TRIGLYCERIDES LEVEL 142 MG/DL (<150)
== END ==
LOC: M LAB 06:27
PROVIDERS: ATTEND Nurse Practitioner Adult Health
DX: I73.9 Peripheral vascular disease, unspecified (principal); E78.00 Pure hypercholesterolemia, unspecified; F10.20 Alcohol dependence, uncomplicated; Z79.899 Other long term (current) drug therapy; E03.9 Hypothyroidism, unspecified; E55.9 Vitamin D deficiency, unspecified

== ENCOUNTER → 2017-10-11 | Outpatient (CLI) | payer OTHER | LOC: M PAIN 14:30 | DX: M50.20 Other cervical disc displacement, unspecified cervical region (principal); E03.9 Hypothyroidism, unspecified; F32.9 Major depressive disorder, single episode, unspecified; M79.7 Fibromyalgia; F17.210 Nicotine dependence, cigarettes, uncomplicated; Z79.891 Long term (current) use of opiate analgesic; Z79.899 Other long term (current) drug therapy; Z86.69 Personal history of other diseases of the nervous system and sense organs | CPT/HCPCS: G0463 ==

== ENCOUNTER → 2018-01-08 | Outpatient (CLI) | payer OTHER | LOC: M PAIN 14:00 | DX: M50.20 Other cervical disc displacement, unspecified cervical region (principal); E03.9 Hypothyroidism, unspecified; M53.1 Cervicobrachial syndrome; F32.9 Major depressive disorder, single episode, unspecified; M79.7 Fibromyalgia; F17.210 Nicotine dependence, cigarettes, uncomplicated; Z79.891 Long term (current) use of opiate analgesic; Z79.899 Other long term (current) drug therapy; Z86.69 Personal history of other diseases of the nervous system and sense organs | CPT/HCPCS: G0463 ==

== ENCOUNTER → 2018-02-13 | Outpatient (CLI) | payer MEDICARE, MEDICAID ==
[2018-02-13 07:07] LABS: BASO # 0.1 10^3/uL (0.0-0.2); BASO % 0.7 % (0.0-1.0); EOS # 0.2 10^3/uL (0.0-0.50); EOS % 3.4 % (0.0-3.0); HEMATOCRIT 40.3 % (36.0-47.0); HEMOGLOBIN 13.9 g/dl (12.0-15.5); IMMATURE GRANULOCYTE % 0.1 % (0-3.0); LYMPH # 2.7 10^3/uL (1.5-4.5); LYMPH % 37.9 % (24.0-44.0); MEAN CORPUSCULAR HGB CONC 34.5 g/dl (32.0-36.5); MONO # 0.6 10^3/uL (0.0-0.8); MONO % 7.9 % (0.0-5.0); NEUTROPHILS # 3.5 10^3/uL (1.8-7.7); PLATELET COUNT, AUTOMATED 303 10^3/uL (150-450); RED BLOOD COUNT 4.48 10^6/uL (4.00-5.40); RED CELL DISTRIBUTION WIDTH 12.4 % (11.5-14.5); WHITE BLOOD COUNT 7.1 10^3/uL (4.0-10.0)
[2018-02-13 07:27] LABS: ESTIMATED AVERAGE GLUCOSE 120 MG/DL (60-110); HEMOGLOBIN A1c 5.8 %
[2018-02-13 07:41] LABS: ALBUMIN 3.8 GM/DL (3.2-5.2); ALBUMIN/GLOBULIN RATIO 1.12 (1.00-1.93); ALKALINE PHOSPHATASE 58 U/L (45-117); ALT/SGPT 22 U/L (12-78); ANION GAP 8 MEQ/L (8-16); AST/SGOT 14 U/L (7-37); BILIRUBIN,TOTAL 0.4 MG/DL (0.2-1.0); BLOOD UREA NITROGEN 11 MG/DL (7-18); CALCIUM LEVEL 9.1 MG/DL (8.5-10.1); CARBON DIOXIDE LEVEL 29 MEQ/L (21-32); CHLORIDE LEVEL 106 MEQ/L (98-107); CHOLESTEROL LEVEL 182 MG/DL (<200); CHOLESTEROL RISK RATIO 3.433 (<5); CREATININE FOR GFR 0.72 MG/DL (0.55-1.30); FREE T4 1.17 NG/DL (0.76-1.46); GLOMERULAR FILTRATION RATE > 60.0 (>51); GLUCOSE, FASTING 94 MG/DL (70-100); HDL CHOLESTEROL 53 MG/DL (>40); LDL CHOLESTEROL 89.2 MG/DL (<100); NON-HDL-C 129 MG/DL; POTASSIUM SERUM 4.4 MEQ/L (3.5-5.1); SODIUM LEVEL 143 MEQ/L (136-145); TOTAL PROTEIN 7.2 GM/DL (6.4-8.2); TRIGLYCERIDES LEVEL 199 MG/DL (<150)
[2018-02-13 09:14] LABS: TOTAL 25(OH) VITAMIN D 30.4 NG/ML (30.0-100.0)
== END ==
LOC: M LAB 06:25
DX: E78.00 Pure hypercholesterolemia, unspecified (principal); R94.5 Abnormal results of liver function studies; D64.9 Anemia, unspecified; E55.9 Vitamin D deficiency, unspecified; Z79.899 Other long term (current) drug therapy
CPT/HCPCS: 84443

== ENCOUNTER 2018-02-17 15:38 | Outpatient (RCR) | payer MEDICARE, MEDICAID | END 2018-03-01 | LOC: M PT 15:38 | DX: Z51.89 Encounter for other specified aftercare (principal); M72.2 Plantar fascial fibromatosis | CPT/HCPCS: 97110 ==

== ENCOUNTER 2018-03-04 08:08 | Outpatient (RCR) | payer MEDICARE, MEDICAID | END 2018-04-01 | LOC: M PT 08:08 | DX: Z51.89 Encounter for other specified aftercare (principal); M72.2 Plantar fascial fibromatosis | CPT/HCPCS: 97110 ==

== ENCOUNTER → 2018-06-16 | Outpatient (CLI) | payer OTHER | LOC: M PAIN 14:45 | DX: M54.12 Radiculopathy, cervical region (principal); M79.18 Myalgia, other site; M50.20 Other cervical disc displacement, unspecified cervical region; E03.9 Hypothyroidism, unspecified; F32.9 Major depressive disorder, single episode, unspecified; F17.210 Nicotine dependence, cigarettes, uncomplicated; Z79.891 Long term (current) use of opiate analgesic; Z79.899 Other long term (current) drug therapy; Z86.69 Personal history of other diseases of the nervous system and sense organs; Z92.89 Personal history of other medical treatment | CPT/HCPCS: G0463 ==

== ENCOUNTER → 2018-10-10 | Outpatient (CLI) | payer OTHER ==
[~2018-10-10] MED LIST changes: -GABA-282 PO; +GABA-843 PO
--- NOTE | 2018-10-18 23:29 | ECWPNPC ---
PATIENT NAME: RAYRAY SERRA : 1960 GENDER: FEMALE VISIT DATE: 10/10/2018 DISCHARGE DATE: 10/10/181538 VISIT LOCKED DATE TIME: PHYSICIAN: MARJORIE KRISHNAMURTHY MD RESOURCE: MARJORIE KRISHNAMURTHY MD REASON FOR APPOINTMENT 1. W/C MEDICATION MANAGEMENT HISTORY OF PRESENT ILLNESS HISTORY OF PRESENT ILLNESS: PAIN THE PATIENT DESCRIBES THE PAIN... 58 YEAR OLD FEMALE PATIENT WITH A HISTORY OF CHRONIC NECK PAIN. THE PATIENT DESCRIBES THE PAIN ACHING, TENDER, SORE, AND CONTINUOUS WITH A PAIN SCORE OF 5-9/10 DEPENDING ON PHYSICAL ACTIVITY. 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 THE PATIENT SAYS THE PAIN STARTS IN HER NECK AREA AND RADIATES UP CAUSING HEADACHES. THE PATIENT SAYS THAT SHE HAS DIFFICULTY DOING DAILY ACTIVITIES SUCH COOKING, CLEANING, AND GROCERY SHOPPING DUE TO THIS PAIN. THE PATIENT IS CURRENTLY USING HYDROCODONE, BACLOFEN, AMITRIPTYLINE, GABAPENTIN, AND LIDOCAINE PATCHES TO AID IN PAIN RELIEF. THE PATIENT SAYS THE USE OF THESE MEDICATIONS HELP HER REMAIN MOBILE AND FUNCTIONAL. PATIENT DENIES UNEXPLAINABLE WEIGHT LOSS, FEVER, CHILLS, NEW CHANGES ON HER URINARY OR BOWEL CONTROL. FALL RISK SCREENING: SCREENING :NO FALLS IN THE PAST YEAR CURRENT MEDICATIONS TAKING LEVOTHYROXINE SODIUM 88 MCG TABLET 1 TAB(S) ORALLY ONCE A DAY TAKING NEXIUM 40 MG CAPSULE DELAYED RELEASE 1 CAPSULE ORALLY NEEDED TAKING CETIRIZINE HCL 10 MG TABLET 1 TABLET ORALLY ONCE A DAY TAKING SIMVASTATIN 20 MG TABLET 1 TABLET IN THE EVENING ORALLY ONCE A DAY TAKING ESTRACE 0.1 MG/GM CREAM 0.5 GM VAGINAL EVERY NIGHT X 14 THEN TWICE A WEEK TAKING ELAVIL 25MG TABLET 1 TAB(S) ORAL ONCE A DAY TAKING LIDOCAINE VISCOUS 2 % SOLUTION 15 ML TO AFFECTED AREA NEEDED MOUTH/THROAT EVERY 3 HRS TO PAIN GUM AREAS TAKING LIDOCAINE 5 % PATCH 2 PATCHS TO INTACT SKIN REMOVE AFTER 12 HOURS EXTERNALLY ON 12 HRS/OFF 12 HRS TO NECK AREA MDD=2, NOTES: WORKERS COMP TAKING GABAPENTIN 300 300 MG TABLET 1 TABLET ORAL TID TAKING ESCITALOPRAM OXALATE 10 MG TABLET 1 TABLET ORALLY ONCE A DAY TAKING BACLOFEN 20 MG TABLET 1 TAB(S) ORALLY THREE TIMES A DAY TAKING VALIUM 5 MG TABLET 1 TABLET NEEDED ORALLY Q 8 HRS FOR SEVERE SPASM MDD=3S TAKING AMITRIPTYLINE HCL 25 MG TABLET 3 TABLET ORALLY QHS TAKING NORCO 5-325 MG TABLET 1 TABLET ORALLY EVERY 4 HRS PRN PAIN MDD=6 CHRONIC PAIN NOT-TAKING PROZAC 20 MG CAPSULE 1 CAPSULE IN THE MORNING ORALLY ONCE A DAY NOT-TAKING FLUOXETINE 40 MG CAPSULE 1 CAPSULE IN THE MORNING ORALLY ONCE A DAY MEDICATION LIST REVIEWED AND RECONCILED WITH THE PATIENT PAST MEDICAL HISTORY MYOFASCIAL PAIN SYNDROME IN HER BACK HYPOTHYROIDISM DEGENERATIVE DISC DISEASE THORACIC OUTLET SYNDROME PERIMENOPAUSAL, SYMPTOMATIC DEPRESSION FIBROMYALGIA VERTIGO ALLERGIES N.K.D.A. SURGICAL HISTORY SECTION TUBAL LIGATION REMOVAL OF ONE RIB LEFT BREAST LUMPECTOMY 1996 D&C COLPOSCOPY FAMILY HISTORY FATHER: 81 YRS, COLON AND LIVER CANCER, DIAGNOSED AT 78. MOTHER: ALIVE 78 YRS, HYPERTENSION, HYPOTHYROIDISM SIBLINGS: HYPERTENSION, AAA, SISTER NE AGE 55 DEID ,BROTHER POSSIBLE DRUGS ABUSE AGE 57 2 BROTHER(S) , 1 SISTER(S) . 1 SON(S) , 1 DAUGHTER(S) . BROTHER AT 50, RUPTURED AAA. DAUGHTER WITH HEPATITIS C. DENIES FAMILY HX OF BREAST OR OVARIAN CANCER. NO OTHER COLON CANCER IN FAMILY. FATHER OF LIVER CANCER. SOCIAL HISTORY GENERAL: TOBACCO USE ARE YOU A:FORMER SMOKER NICOTINE PATCH HOW LONG HAS IT BEEN SINCE YOU LAST SMOKED?1-3 MONTHS RECREATIONAL DRUG USE DENIES. CAFFEINE 2 CUPS DAILY. JAIN [id number] [employer] LANGUAGE LANGUAGES SPOKEN:DIVEHI EDUCATION LEVEL OF EDUCATION:NOT FINISHED HIGH SCHOOL 9TH GRADE LEARNING BARRIERS / SPECIAL NEEDS CHANGE FROM LAST VISIT?NO BARRIERS TO LEARNING?NO HEARING IMPAIRED?NO VISION IMPAIRED?YES :CORRECTIVE LENSES COGNITIVELY IMPAIRED?NO READINESS TO LEARN?YES LEARNING PREFERENCES?NO LEARNING CAPABILITIES PRESENT?YES EMOTIONAL BARRIERS?NO SPECIAL DEVICES?YES :CANE, WALKER OCC. UX DEVELOPER NEEDED?NO DOMESTIC VIOLENCE DENIES. 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 NOW THAT THERE WILL BE A CHANGE IN MGMT, SHE IS PREPARING TO RETURN. . DIET: HAS IMPROVED. INCREASED FRUIT. EXERCISE: NONE. MARITAL STATUS: . OTHERS AT HOME: SPOUSE. PAIN CLINIC PFS, CLERGY, PUBLIC HEALTH REFERRALS PFS REFERRAL NEEDED?NO CLERGY REFERRAL NEEDED?NO PUBLIC HEALTH REFERRAL NEEDED?NO HAS THE PATIENT BEEN EDUCATED REGARDING HIS/HER PLAN OF CARE?YES HAS THE PATIENT BEEN EDUCATED REGARDING PAIN, THE RISK FOR PAIN, THE IMPORTANCE OF EFFECTIVE PAIN MANAGEMENT, AND THE PAIN ASSESSMENT PROCESS?YES ADVANCE DIRECTIVE ADVANCE DIRECTIVE DISCUSSED WITH PATIENT:YES DECLINED HOSPITALIZATION/MAJOR DIAGNOSTIC PROCEDURE SURGERIES REVIEW OF SYSTEMS REVIEWED BY: PROVIDER: MARJORIE KRISHNAMURTHY MD . CONSTITUTIONAL: ANY CHANGE IN YOUR MEDICAL CONDITION? NO . CHILLS NO . FEVER NO . INFECTION: DO YOU HAVE NEW INFECTIONS? NO . DO YOU HAVE HISTORY OF MRSA? NO . MUSCULOSKELETAL: ANY NEW PATTERNS OF PAIN OR NUMBNESS? NO . GASTROENTEROLOGY: ANY NEW CHANGE IN BOWEL CONTROL? NO . GENITOURINARY: ANY NEW CHANGE IN BLADDER CONTROL? NO . IS THERE A CHANCE YOU COULD BE ? NO . HEMATOLOGY/LYMPH: DO YOU TAKE ANY BLOOD THINNERS? (FOR EXAMPLE- COUMADIN, PLAVIX, AGGRENOX, PLATEL, PRADAXA, OR XARELTO) NO . WHEN WAS YOUR LAST DOSE? DATE: TIME: . NEUROLOGY: HAVE YOU FALLEN IN THE PAST 12 MONTHS? NO . ANY NEW EXTREMITY NUMBNESS OR WEAKNESS? NO . CARDIOLOGY: DO YOU HAVE A PACEMAKER OR DEFIBRILLATOR? NO . RESPIRATORY: HAVE YOU BEEN SICK IN THE PAST WEEK? NO . FEVER NO . FLU LIKE SYMPTOMS? NO . COUGH NO . INTEGUMENTARY: DO YOU HAVE ANY RASHES OR OPEN SORES? NO . ALLERGIC/IMMUNO: ARE YOU ALLERGIC TO IV DYE? NO . ANY NEW ALLERGIES? NO . PSYCHIATRIC: DO YOU HAVE THOUGHTS OF HURTING YOURSELF OR SOMEONE ELSE? NO . ARE YOU ABUSED, NEGLECTED, OR IN AN UNSAFE ENVIRONMENT? NO . ENDOCRINOLOGY: ARE YOU DIABETIC? NO . OTHER: DO YOU NEED ANY PRESCRIPTIONS? NO . IF YES, PLEASE LIST: ____ . ANY NEW PROBLEMS WITH YOUR MEDICATIONS? NO . WHEN DID YOU LAST EAT? ____ . WHEN DID YOU LAST DRINK? ____ . WHAT DID YOU LAST DRINK? ____ . NAME OF PERSON DRIVING YOU HOME? ____ . DO YOU HAVE ANY OTHER QUESTIONS OR CONCERNS NO . VITAL SIGNS WT 150 LBS, HT 62 1/2, BMI 27.00 INDEX, BP 109/66 MM HG, HR 106 /MIN, RR 16 /MIN, TEMP 98.8 F, OXYGEN SAT % 96, REVIEWED BY: EM. EXAMINATION GENERAL EXAMINATION: PATIENT IS ALERT O X 3 AND COOPERATIVE. TENDERNESS OVER THE NECK AREA. PAIN INCREASES OVER THE CERVICAL FACET JOINTS WITH EXTENSION AND LATERAL ROTATION OF THE NECK. MRI OF THE CERVICAL SPINE DONE ON 11/22/2016 SHOWS FACET ARTHROPATHY CHANGES AT MULTIPLE LEVELS. 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 SERRA'S PAIN MANAGEMENT CASE. WE WILL PERFORM A URINE TOXICOLOGY TODAY. I WILL REDUCE THE HYDROCODONE FROM 6 TABLETS PER DAY TO 3 TABLETS PER DAY AND I WILL ALSO REDUCE THE AMITRIPTYLINE SLOWLY. THE PATIENT WILL CONTINUE USING THE GABAPENTIN AND LIDOCAINE PATCHES FOR THE NEUROPATHIC PAIN. THE PATIENT WILL CONTINUE USING BACLOFEN FOR SPASMS AND WE WILL ADJUST IT IN THE FUTURE. THE PATIENT WILL ALSO START USING IBUPROFEN WITH FOOD. WE DISCUSSED THE RISKS OF USING NSAID'S INCLUDING THE DEVELOPMENT OF GASTRIC IRRITATION AND ULCERS, KIDNEY PROBLEMS AND THE POSSIBILITY OF DEVELOPING CARDIAC EVENTS SUCH STOKE OR CARDIAC DISEASES. THE PATIENT VERBALIZED UNDERSTANDING. THE PATIENT WILL FOLLOW UP IN 1 MONTH. INSTRUCTIONS WERE GIVEN, QUESTIONS WERE ANSWERED, PATIENT REPORTS UNDERSTANDING AND AGREES WITH THE PLAN. I, LOUISA FISHER, DOCUMENTED THE ABOVE INFORMATION ACTING A SCRIBE FOR DR. KRISHNAMURTHY. I HAVE REVIEWED THE ABOVE DOCUMENT, WRITTEN BY LOUISA DIAZ AND I VERIFY THAT IT IS ACCURATE. OTHERS REFILL BACLOFEN TABLET, 20 MG, 1 TAB(S), ORALLY, THREE TIMES A DAY, 30 DAY(S), 90, REFILLS 5 START IBUPROFEN TABLET, 800 MG, 1 TABLET WITH FOOD OR MILK NEEDED, ORALLY, EVERY 6 HOURS NEEDED MDD3, 30 DAY(S), 70, REFILLS 1 REFILL NORCO TABLET, 5-325 MG, 1 TABLET, ORALLY, EVERY 6 HRS PRN PAIN MDD=3 CHRONIC PAIN, 30 DAY(S), 70, REFILLS 0 PROCEDURES PN WORKMANS' COMP OPINION IN YOUR OPINION, WAS THE INCIDENT THAT THE PATIENT DESCRIBED THE COMPETENT MEDICAL CAUSE OF THIS INJURY/ILLNESS? YES ARE THE PATIENT'S COMPLAINTS CONSISTENT WITH HIS/HER HISTORY OF THE INJURY/ILLNESS? YES IS THE PATIENT'S HISTORY OF THE INJURY/ILLNESS CONSISTENT WITH YOUR OBJECTIVE FINDING? YES WHAT IS THE PERCENTAGE OF TEMPORARY IMPAIRMENT? MODERATE TO MARKED = 66.7% IS THE PATIENT WORKING? YES DOCTOR ON SITE: MARJORIE PEARSON MD PROCEDURE CODES G8427 CURRENT MEDS W/DOSAGES DOCUMENTED G8730 PAIN ASSESS POS TOOL F/U PLAN DOC FA211 ESTABILISHED PATIENT [facility] CHARGE DISPOSITION & COMMUNICATION FOLLOW UP 4 WEEKS ELECTRONICALLY SIGNED BY MARJORIE KRISHNAMURTHY MD, ON 10/18/2018 AT 08:52 PM EST DISCLAIMER : THIS IS A VISIT SUMMARY EXTRACTED FROM THE [employer] CHART. IT IS NOT A COPY OF THE [employer] PROGRESS NOTE. MTDD
== END ==
LOC: M PAIN 14:30
PROVIDERS: ATTEND Anesthesiology
DX: M47.812 Spondylosis without myelopathy or radiculopathy, cervical region (principal); E03.9 Hypothyroidism, unspecified; M79.18 Myalgia, other site; F32.9 Major depressive disorder, single episode, unspecified; M79.7 Fibromyalgia; R42 Dizziness and giddiness; N95.1 Menopausal and female climacteric states; Z87.891 Personal history of nicotine dependence; Z79.891 Long term (current) use of opiate analgesic; Z79.899 Other long term (current) drug therapy

== ENCOUNTER → 2018-11-07 | Outpatient (CLI) | payer OTHER ==
--- NOTE | 2018-11-23 23:46 | ECWPNPC ---
PATIENT NAME: RAYRAY SERRA : 1960 GENDER: FEMALE VISIT DATE: 11/07/2018 DISCHARGE DATE: 11/07/18 1547 VISIT LOCKED DATE TIME: PHYSICIAN: MARJORIE KRISHNAMURTHY MD RESOURCE: MARJORIE KRISHNAMURTHY MD REASON FOR APPOINTMENT 1. W/C MEDICATION MANAGEMENT HISTORY OF PRESENT ILLNESS HISTORY OF PRESENT ILLNESS: PAIN THE PATIENT DESCRIBES THE PAIN... 58 YEAR OLD FEMALE PATIENT WITH A HISTORY OF CHRONIC NECK PAIN. THE PATIENT DESCRIBES THE PAIN ACHING AND CONTINUOUS WITH A PAIN SCORE OF 5-7/10 DEPENDING ON PHYSICAL ACTIVITY. 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 THE PATIENT SAYS THE PAIN STARTS IN HER NECK AREA AND RADIATES DOWN INTO HER ARMS WELL UP INTO HER HEAD CAUSING HEADACHES. THE STATES THAT SHE HAS DIFFICULTY SLEEPING DUE TO THIS PAIN. THE PATIENT IS CURRENTLY USING HYDROCODONE, GABAPENTIN, AND BACLOFEN TO AID IN PAIN RELIEF. PATIENT DENIES UNEXPLAINABLE WEIGHT LOSS, FEVER, CHILLS, NEW CHANGES ON HER URINARY OR BOWEL CONTROL. FALL RISK SCREENING: SCREENING : NO FALLS IN THE PAST YEAR. CURRENT MEDICATIONS TAKING BACLOFEN 20 MG TABLET 1 TAB(S) ORALLY THREE TIMES A DAY TAKING IBUPROFEN 800 MG TABLET 1 TABLET WITH FOOD OR MILK NEEDED ORALLY EVERY 6 HOURS NEEDED MDD3 TAKING NORCO 5-325 MG TABLET 1 TABLET ORALLY EVERY 6 HRS PRN PAIN MDD=3 CHRONIC PAIN TAKING LEVOTHYROXINE SODIUM 88 MCG TABLET 1 TAB(S) ORALLY ONCE A DAY TAKING NEXIUM 40 MG CAPSULE DELAYED RELEASE 1 CAPSULE ORALLY NEEDED TAKING CETIRIZINE HCL 10 MG TABLET 1 TABLET ORALLY ONCE A DAY TAKING SIMVASTATIN 20 MG TABLET 1 TABLET IN THE EVENING ORALLY ONCE A DAY TAKING ESTRACE 0.1 MG/GM CREAM 0.5 GM VAGINAL EVERY NIGHT X 14 THEN TWICE A WEEK TAKING ELAVIL 25MG TABLET 1 TAB(S) ORAL ONCE A DAY TAKING LIDOCAINE 5 % PATCH 2 PATCHS TO INTACT SKIN REMOVE AFTER 12 HOURS EXTERNALLY ON 12 HRS/OFF 12 HRS TO NECK AREA MDD=2, NOTES: WORKERS COMP TAKING GABAPENTIN 300 300 MG TABLET 1 TABLET ORAL TID TAKING ESCITALOPRAM OXALATE 10 MG TABLET 1 TABLET ORALLY ONCE A DAY NOT-TAKING AMITRIPTYLINE HCL 25 MG TABLET 3 TABLET ORALLY QHS NOT-TAKING LIDOCAINE VISCOUS 2 % SOLUTION 15 ML TO AFFECTED AREA NEEDED MOUTH/THROAT EVERY 3 HRS TO PAIN GUM AREAS NOT-TAKING VALIUM 5 MG TABLET 1 TABLET NEEDED ORALLY Q 8 HRS FOR SEVERE SPASM MDD=3S UNKNOWN PROZAC 20 MG CAPSULE 1 CAPSULE IN THE MORNING ORALLY ONCE A DAY UNKNOWN FLUOXETINE 40 MG CAPSULE 1 CAPSULE IN THE MORNING ORALLY ONCE A DAY MEDICATION LIST REVIEWED AND RECONCILED WITH THE PATIENT PAST MEDICAL HISTORY MYOFASCIAL PAIN SYNDROME IN HER BACK HYPOTHYROIDISM DEGENERATIVE DISC DISEASE THORACIC OUTLET SYNDROME PERIMENOPAUSAL, SYMPTOMATIC DEPRESSION FIBROMYALGIA VERTIGO ALLERGIES N.K.D.A. SURGICAL HISTORY SECTION TUBAL LIGATION REMOVAL OF ONE RIB LEFT BREAST LUMPECTOMY 1996 D&C COLPOSCOPY FAMILY HISTORY FATHER: 81 YRS, COLON AND LIVER CANCER, DIAGNOSED AT 78. MOTHER: ALIVE 78 YRS, HYPERTENSION, HYPOTHYROIDISM SIBLINGS: HYPERTENSION, AAA, SISTER [place] AGE 55 DEID ,BROTHER POSSIBLE DRUGS ABUSE AGE 57 2 BROTHER(S) , 1 SISTER(S) . 1 SON(S) , 1 DAUGHTER(S) . BROTHER AT 50, RUPTURED AAA. DAUGHTER WITH HEPATITIS C. DENIES FAMILY HX OF BREAST OR OVARIAN CANCER. NO OTHER COLON CANCER IN FAMILY. \NFATHER OF LIVER CANCER. SOCIAL HISTORY GENERAL: TOBACCO USE ARE YOU A:FORMER SMOKER NICOTINE PATCH HOW LONG HAS IT BEEN SINCE YOU LAST SMOKED?1-3 MONTHS RECREATIONAL DRUG USE DENIES. CAFFEINE 2 CUPS DAILY. GNOSTICIST [id number] YAZIDI LANGUAGE LANGUAGES SPOKEN:TRISTANIAN EDUCATION LEVEL OF EDUCATION:NOT FINISHED HIGH SCHOOL 9TH GRADE LEARNING BARRIERS / SPECIAL NEEDS CHANGE FROM LAST VISIT?NO BARRIERS TO LEARNING?NO HEARING IMPAIRED?NO VISION IMPAIRED?YES :CORRECTIVE LENSES COGNITIVELY IMPAIRED?NO READINESS TO LEARN?YES LEARNING PREFERENCES?NO LEARNING CAPABILITIES PRESENT?YES EMOTIONAL BARRIERS?NO SPECIAL DEVICES?YES :CANE, WALKER OCC. 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 NOW THAT THERE WILL BE A CHANGE IN MGMT, SHE IS PREPARING TO RETURN. . DIET: HAS IMPROVED. INCREASED FRUIT. EXERCISE: NONE. MARITAL STATUS: . OTHERS AT HOME: SPOUSE. PAIN CLINIC PFS, CLERGY, PUBLIC HEALTH REFERRALS PFS REFERRAL NEEDED?NO CLERGY REFERRAL NEEDED?NO PUBLIC HEALTH REFERRAL NEEDED?NO HAS THE PATIENT BEEN EDUCATED REGARDING HIS/HER PLAN OF CARE?YES HAS THE PATIENT BEEN EDUCATED REGARDING PAIN, THE RISK FOR PAIN, THE IMPORTANCE OF EFFECTIVE PAIN MANAGEMENT, AND THE PAIN ASSESSMENT PROCESS?YES ADVANCE DIRECTIVE ADVANCE DIRECTIVE DISCUSSED WITH PATIENT:YES DECLINED HOSPITALIZATION/MAJOR DIAGNOSTIC PROCEDURE SURGERIES REVIEW OF SYSTEMS REVIEWED BY: PROVIDER: MARJORIE KRISHNAMURTHY MD . CONSTITUTIONAL: ANY CHANGE IN YOUR MEDICAL CONDITION? NO . CHILLS NO . FEVER NO . INFECTION: DO YOU HAVE NEW INFECTIONS? NO . DO YOU HAVE HISTORY OF MRSA? NO . MUSCULOSKELETAL: ANY NEW PATTERNS OF PAIN OR NUMBNESS? NO . GASTROENTEROLOGY: ANY NEW CHANGE IN BOWEL CONTROL? NO . GENITOURINARY: ANY NEW CHANGE IN BLADDER CONTROL? NO . IS THERE A CHANCE YOU COULD BE ? NO . HEMATOLOGY/LYMPH: DO YOU TAKE ANY BLOOD THINNERS? (FOR EXAMPLE- COUMADIN, PLAVIX, AGGRENOX, PLATEL, PRADAXA, OR XARELTO) NO . WHEN WAS YOUR LAST DOSE? DATE: TIME: . NEUROLOGY: HAVE YOU FALLEN IN THE PAST 12 MONTHS? NO . ANY NEW EXTREMITY NUMBNESS OR WEAKNESS? NO . CARDIOLOGY: DO YOU HAVE A PACEMAKER OR DEFIBRILLATOR? NO . RESPIRATORY: HAVE YOU BEEN SICK IN THE PAST WEEK? NO . FEVER NO . FLU LIKE SYMPTOMS? NO . COUGH NO . INTEGUMENTARY: DO YOU HAVE ANY RASHES OR OPEN SORES? NO . ALLERGIC/IMMUNO: ARE YOU ALLERGIC TO IV DYE? NO . ANY NEW ALLERGIES? NO . PSYCHIATRIC: DO YOU HAVE THOUGHTS OF HURTING YOURSELF OR SOMEONE ELSE? NO . ARE YOU ABUSED, NEGLECTED, OR IN AN UNSAFE ENVIRONMENT? NO . ENDOCRINOLOGY: ARE YOU DIABETIC? NO . OTHER: DO YOU NEED ANY PRESCRIPTIONS? NO . IF YES, PLEASE LIST: ____ . ANY NEW PROBLEMS WITH YOUR MEDICATIONS? NO . WHEN DID YOU LAST EAT? ____ . WHEN DID YOU LAST DRINK? ____ . WHAT DID YOU LAST DRINK? ____ . NAME OF PERSON DRIVING YOU HOME? ____ . DO YOU HAVE ANY OTHER QUESTIONS OR CONCERNS NO . VITAL SIGNS WT 153.2 LBS, HT 62 1/2, BMI 27.57 INDEX, BP 128/62 MM HG, HR 92 /MIN, RR 16 /MIN, TEMP 98.3 F, OXYGEN SAT % 97%. EXAMINATION GENERAL EXAMINATION: PATIENT IS ALERT O X 3 AND COOPERATIVE. TENDERNESS IN THE NECK AREA. PAIN INCREASES OVER THE CERVICAL FACET JOINTS WITH EXTENSION AND LATERAL ROTATION OF THE NECK. PATIENT HAS DIFFICULTY ABDUCTING THE UPPER EXTREMITIES. HAND NOISE TESTER OVER THE RIGHT AND LEFT SIDE IS REDUCED. MRI OF THE CERVICAL SPINE DONE ON 11/22/2016 SHOWS FACET ARTHROPATHY CHANGES AT MULTIPLE LEVELS. 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 SERRA'S PAIN MANAGEMENT CASE. I WILL INCREASE THE PATIENT'S GABAPENTIN TO 4 TABLETS PER DAY AND THE PATIENT SAYS SHE WILL TRY REDUCING HER BACLOFEN TO 2 TABLETS PER DAY. THE PATIENT WILL TRY OVER THE COUNTER PRODUCTS SUCH MELATONIN TO HELP HER SLEEP AT NIGHT. THE PATIENT WAS REMINDED TO BRING HER MEDICATIONS WITH HER TO EACH VISIT. URINE TOXICOLOGY DONE ON 10/10/2018 SHOWS CONCURRENT RESULTS. ISTOP __#[id number] WAS REVIEWED. THE PATIENT WILL FOLLOW UP IN 1 MONTH. INSTRUCTIONS WERE GIVEN, QUESTIONS WERE ANSWERED, PATIENT REPORTS UNDERSTANDING AND AGREES WITH THE PLAN. I, LOUISA FISHER, DOCUMENTED THE ABOVE INFORMATION ACTING A SCRIBE FOR DR. KRISHNAMURTHY. I HAVE REVIEWED THE ABOVE DOCUMENT, WRITTEN BY LOUISA DIAZ AND I VERIFY THAT IT IS ACCURATE. . OTHERS REFILL GABAPENTIN 300 TABLET, 300 MG, 1 TABLET, ORAL, QID, 90 DAY(S), 360 TABLET, REFILLS 0 PROCEDURES PN WORKMANS' COMP OPINION IN YOUR OPINION, WAS THE INCIDENT THAT THE PATIENT DESCRIBED THE COMPETENT MEDICAL CAUSE OF THIS INJURY/ILLNESS? YES ARE THE PATIENT'S COMPLAINTS CONSISTENT WITH HIS/HER HISTORY OF THE INJURY/ILLNESS? YES IS THE PATIENT'S HISTORY OF THE INJURY/ILLNESS CONSISTENT WITH YOUR OBJECTIVE FINDING? YES WHAT IS THE PERCENTAGE OF TEMPORARY IMPAIRMENT? MODERATE TO MARKED = 66.7% IS THE PATIENT WORKING? YES DOCTOR ON SITE: MARJORIE PEARSON MD PROCEDURE CODES FA211 ESTABILISHED PATIENT [facility] FACILITY CHARGE G8427 CURRENT MEDS W/DOSAGES DOCUMENTED G8730 PAIN ASSESS POS TOOL F/U PLAN DOC DISPOSITION & COMMUNICATION FOLLOW UP 1 MONTH (REASON: W/C NECK- MEDS) ELECTRONICALLY SIGNED BY MARJORIE KRISHNAMURTHY MD, MD ON 11/23/2018 AT 07:48 PM EDT DISCLAIMER : THIS IS A VISIT SUMMARY EXTRACTED FROM THE [facility] CHART. IT IS NOT A COPY OF THE [facility] PROGRESS NOTE. FANG
== END ==
LOC: M PAIN 14:15
PROVIDERS: ATTEND Anesthesiology
DX: M47.812 Spondylosis without myelopathy or radiculopathy, cervical region (principal); G89.29 Other chronic pain; E03.9 Hypothyroidism, unspecified; F32.9 Major depressive disorder, single episode, unspecified; M79.7 Fibromyalgia; Z79.891 Long term (current) use of opiate analgesic; Z79.899 Other long term (current) drug therapy; Z86.69 Personal history of other diseases of the nervous system and sense organs; Z87.891 Personal history of nicotine dependence

== ENCOUNTER → 2018-12-08 | Outpatient (CLI) | payer OTHER ==
[~2018-12-08] MED LIST changes: -/BACL20TA PO; -/ROPI25TA PO; +BACL1TAB9 PO; +REQU1TAB14 PO
--- NOTE | 2018-12-24 01:42 | ECWPNPC ---
PATIENT NAME: RAYRAY SERRA : 1960 GENDER: FEMALE VISIT DATE: 12/08/2018 DISCHARGE DATE: 12/08/18 0943 VISIT LOCKED DATE TIME: PHYSICIAN: MARJORIE KRISHNAMURTHY MD RESOURCE: MARJORIE KRISHNAMURTHY MD REASON FOR APPOINTMENT 1. W/C NECK- MEDS-PATEINT HAS TO BE TO WORK AT 9:45/ HAS TO BE FIRST PATIENT PLEASE HISTORY OF PRESENT ILLNESS HISTORY OF PRESENT ILLNESS: PAIN THE PATIENT DESCRIBES THE PAIN... 58 YEAR OLD FEMALE PATIENT WITH A HISTORY OF CHRONIC NECK PAIN. THE PATIENT DESCRIBES THE PAIN ACHING, BURNING, SORE, TENDER, AND CONTINUOUS WITH A PAIN SCORE OF 4-6/10 DEPENDING ON PHYSICAL ACTIVITY. 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 THE PATIENT SAYS HER PAIN IS IN HER NECK AREA AND RADIATES DOWN HER ARMS. THE PATIENT IS CURRENTLY USING HYDROCODONE, GABAPENTIN, AND BACLOFEN TO AID IN PAIN RELIEF. THE PATIENT SAYS THAT SHE WAS USING 4 TABLETS OF GABAPENTIN PER DAY, BUT THINKS IT IS TOO MUCH FOR HER. THE PATIENT SAYS SHE HAS BEEN REDUCING THE USE OF BACLOFEN. THE PATIENT SAYS THAT SHE HAS BEEN USING THE HYDROCODONE NEEDED. PATIENT DENIES UNEXPLAINABLE WEIGHT LOSS, FEVER, CHILLS, NEW CHANGES ON HER URINARY OR BOWEL CONTROL. FALL RISK SCREENING: SCREENING :NO FALLS REPORTED IN THE LAST YEAR CURRENT MEDICATIONS TAKING GABAPENTIN 300 300 MG TABLET 1 TABLET ORAL TID TAKING BACLOFEN 20 MG TABLET 1 TAB(S) ORALLY BID TAKING IBUPROFEN 800 MG TABLET 1 TABLET WITH FOOD OR MILK NEEDED ORALLY EVERY 6 HOURS NEEDED MDD3 TAKING LEVOTHYROXINE SODIUM 88 MCG TABLET 1 TAB(S) ORALLY ONCE A DAY TAKING NEXIUM 40 MG CAPSULE DELAYED RELEASE 1 CAPSULE ORALLY NEEDED TAKING CETIRIZINE HCL 10 MG TABLET 1 TABLET ORALLY ONCE A DAY TAKING SIMVASTATIN 20 MG TABLET 1 TABLET IN THE EVENING ORALLY ONCE A DAY TAKING ESTRACE 0.1 MG/GM CREAM 0.5 GM VAGINAL EVERY NIGHT X 14 THEN TWICE A WEEK TAKING ELAVIL 25MG TABLET 1 TAB(S) ORAL ONCE A DAY TAKING LIDOCAINE 5 % PATCH 2 PATCHS TO INTACT SKIN REMOVE AFTER 12 HOURS EXTERNALLY ON 12 HRS/OFF 12 HRS TO NECK AREA MDD=2, NOTES: WORKERS COMP TAKING ESCITALOPRAM OXALATE 10 MG TABLET 1 TABLET ORALLY ONCE A DAY TAKING NORCO 5-325 MG TABLET 1 TABLET ORALLY EVERY 6 HRS PRN PAIN MDD=3 CHRONIC PAIN TAKING TRAZODONE HCL 100 MG TABLET 1 1/2 TABLET AT BEDTIME ORALLY ONCE A DAY NOT-TAKING AMITRIPTYLINE HCL 25 MG TABLET 3 TABLET ORALLY QHS NOT-TAKING LIDOCAINE VISCOUS 2 % SOLUTION 15 ML TO AFFECTED AREA NEEDED MOUTH/THROAT EVERY 3 HRS TO PAIN GUM AREAS NOT-TAKING VALIUM 5 MG TABLET 1 TABLET NEEDED ORALLY Q 8 HRS FOR SEVERE SPASM MDD=3S NOT-TAKING PROZAC 20 MG CAPSULE 1 CAPSULE IN THE MORNING ORALLY ONCE A DAY NOT-TAKING FLUOXETINE 40 MG CAPSULE 1 CAPSULE IN THE MORNING ORALLY ONCE A DAY MEDICATION LIST REVIEWED AND RECONCILED WITH THE PATIENT PAST MEDICAL HISTORY MYOFASCIAL PAIN SYNDROME IN HER BACK HYPOTHYROIDISM DEGENERATIVE DISC DISEASE THORACIC OUTLET SYNDROME PERIMENOPAUSAL, SYMPTOMATIC DEPRESSION FIBROMYALGIA VERTIGO ALLERGIES N.K.D.A. SURGICAL HISTORY SECTION TUBAL LIGATION REMOVAL OF ONE RIB LEFT BREAST LUMPECTOMY 1996 D&C COLPOSCOPY FAMILY HISTORY FATHER: 81 YRS, COLON AND LIVER CANCER, DIAGNOSED AT 78. MOTHER: ALIVE 78 YRS, HYPERTENSION, HYPOTHYROIDISM SIBLINGS: HYPERTENSION, AAA, SISTER [place] AGE 55 DEID ,BROTHER POSSIBLE DRUGS ABUSE AGE 57 2 BROTHER(S) , 1 SISTER(S) . 1 SON(S) , 1 DAUGHTER(S) . BROTHER AT 50, RUPTURED AAA. DAUGHTER WITH HEPATITIS C. DENIES FAMILY HX OF BREAST OR OVARIAN CANCER. NO OTHER COLON CANCER IN FAMILY. \\NFATHER OF LIVER CANCER. SOCIAL HISTORY GENERAL: TOBACCO USE ARE YOU A:FORMER SMOKER NICOTINE PATCH HOW LONG HAS IT BEEN SINCE YOU LAST SMOKED?1-3 MONTHS LATEX QUESTIONNAIRE LATEX ALLERGY : HAVE YOU EVER DEVELOPED ANY TYPE OF REACTION AFTER HANDLING LATEX PRODUCTS SUCH RUBBER GLOVES, CONDOMS, DIAPHRAGMS, BALLOONS, SOCKS, OR UNDERWEAR?NO LATEX ALLERGY : HAVE YOU EVER DEVELOPED ANY TYPE OF REACTION DURING OR AFTER DENTAL APPOINTMENT, VAGINAL/RECTAL EXAMINATION, SURGICAL PROCEDURE, OR ANY OTHER EXPOSURE?NO LATEX RISK : HAVE YOU EVER HAD ANY DIFFICULTY BREATHING OR HIVES AFTER EATING OR HANDLING ANY FRUITS, OR VEGETABLES; SUCH KIWI, BANANAS, STONE FRUITS, OR CHESTNUTSNO LATEX RISK : DO YOU HAVE A PREVIOUS PERSONAL HISTORY OF MORE THAN NINE SURGERIES, SPINA BIFIDA, OR REPEATED CATHERTIZATIONS? NO LATEX RISK : ARE YOU FREQUENTLY EXPOSED TO LATEX PRODUCTS IN YOUR OCCUPATION?NO DATE ASKED : 12/08/2018 RECREATIONAL DRUG USE DENIES. CAFFEINE 2 CUPS DAILY. 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 DIVISION SERGEANT NEEDED?NO DOMESTIC VIOLENCE DENIES. 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 NOW THAT THERE WILL BE A CHANGE IN MGMT, SHE IS PREPARING TO RETURN. . DIET: HAS IMPROVED. INCREASED FRUIT. EXERCISE: NONE. MARITAL STATUS: . OTHERS AT HOME: SPOUSE. PAIN CLINIC PFS, CLERGY, PUBLIC HEALTH REFERRALS PFS REFERRAL NEEDED?NO CLERGY REFERRAL NEEDED?NO PUBLIC HEALTH REFERRAL NEEDED?NO HAS THE PATIENT BEEN EDUCATED REGARDING HIS/HER PLAN OF CARE?YES HAS THE PATIENT BEEN EDUCATED REGARDING PAIN, THE RISK FOR PAIN, THE IMPORTANCE OF EFFECTIVE PAIN MANAGEMENT, AND THE PAIN ASSESSMENT PROCESS?YES ADVANCE DIRECTIVE ADVANCE DIRECTIVE DISCUSSED WITH PATIENT:YES HCP INFORMATION GIVEN. ASSISTANCE DECLINED WITH FORM. REVIEWED WITH PATIENT. 12/08/18 0853 BV. HOSPITALIZATION/MAJOR DIAGNOSTIC PROCEDURE SURGERIES REVIEW OF SYSTEMS REVIEWED BY: PROVIDER: MARJORIE KRISHNAMURTHY MD . CONSTITUTIONAL: ANY CHANGE IN YOUR MEDICAL CONDITION? NO . CHILLS NO . FEVER NO . INFECTION: DO YOU HAVE NEW INFECTIONS? NO . DO YOU HAVE HISTORY OF MRSA? NO . MUSCULOSKELETAL: ANY NEW PATTERNS OF PAIN OR NUMBNESS? NO . GASTROENTEROLOGY: ANY NEW CHANGE IN BOWEL CONTROL? NO . GENITOURINARY: ANY NEW CHANGE IN BLADDER CONTROL? NO . IS THERE A CHANCE YOU COULD BE ? NO . HEMATOLOGY/LYMPH: DO YOU TAKE ANY BLOOD THINNERS? (FOR EXAMPLE- COUMADIN, PLAVIX, AGGRENOX, PLATEL, PRADAXA, OR XARELTO) NO . WHEN WAS YOUR LAST DOSE? DATE: TIME: . NEUROLOGY: HAVE YOU FALLEN IN THE PAST 12 MONTHS? NO . ANY NEW EXTREMITY NUMBNESS OR WEAKNESS? YES, PT STATES INCREASING NUMBNESS AND WEAKNESS IN BILATERAL ARMS FOR THE PAST FEW WEEKS. . CARDIOLOGY: DO YOU HAVE A PACEMAKER OR DEFIBRILLATOR? NO . RESPIRATORY: HAVE YOU BEEN SICK IN THE PAST WEEK? NO . FEVER NO . FLU LIKE SYMPTOMS? NO . COUGH NO . INTEGUMENTARY: DO YOU HAVE ANY RASHES OR OPEN SORES? NO . ALLERGIC/IMMUNO: ARE YOU ALLERGIC TO IV DYE? NO . ANY NEW ALLERGIES? NO . PSYCHIATRIC: DO YOU HAVE THOUGHTS OF HURTING YOURSELF OR SOMEONE ELSE? NO . ARE YOU ABUSED, NEGLECTED, OR IN AN UNSAFE ENVIRONMENT? NO . ENDOCRINOLOGY: ARE YOU DIABETIC? NO . OTHER: DO YOU NEED ANY PRESCRIPTIONS? NO . IF YES, PLEASE LIST: ____ . ANY NEW PROBLEMS WITH YOUR MEDICATIONS? NO . WHEN DID YOU LAST EAT? ____ . WHEN DID YOU LAST DRINK? ____ . WHAT DID YOU LAST DRINK? ____ . NAME OF PERSON DRIVING YOU HOME? ____ . DO YOU HAVE ANY OTHER QUESTIONS OR CONCERNS NO . VITAL SIGNS WT 156.2 LBS, HT 62 1/2, BMI 28.11 INDEX, BP 128/59 MM HG, HR 86 /MIN, RR 18 /MIN, TEMP 98.0 F, OXYGEN SAT % 96%, REVIEWED BY: [email or web address]. EXAMINATION GENERAL EXAMINATION: PATIENT IS ALERT O X 3 AND COOPERATIVE. TENDERNESS IN THE NECK AREA. MRI OF THE CERVICAL SPINE DONE ON 11/22/2016 SHOWS FACET ARTHROPATHY CHANGES AT MULTIPLE LEVELS. 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 SERRA'S PAIN MANAGEMENT CASE. THE PATIENT WILL DECREASE HER GABAPENTIN TO 3 TABLETS PER DAY FOR THE NEUROPATHIC PAIN. THE PATIENT WILL CONTINUE TO REDUCE HER BACLOFEN TO 1 TABLET FOR THE NEXT WEEK AND THEN SHE WILL USE IT NEEDED FOR ACUTE SPASMS. THE PATIENT WAS RECENTLY STARTED ON TRAZODONE, SO SHE WILL USE THE TRAZODONE AND THE HYDROCODONE 3 HOURS APART. ISTOP _#[id number] WAS REVIEWED. THE PATIENT BROUGHT HER MEDICATIONS WITH HER TO TODAY'S VISIT IN THE ORIGINAL BOTTLES. THE PATIENT WILL FOLLOW UP IN 6 WEEKS. INSTRUCTIONS WERE GIVEN, QUESTIONS WERE ANSWERED, PATIENT REPORTS UNDERSTANDING AND AGREES WITH THE PLAN. ILOUISA, DOCUMENTED THE ABOVE INFORMATION ACTING A SCRIBE FOR DR. KRISHNAMURTHY. I HAVE REVIEWED THE ABOVE DOCUMENT, WRITTEN BY LOUISA DIAZ AND I VERIFY THAT IT IS ACCURATE. . PROCEDURES PN WORKMANS' COMP OPINION IN YOUR OPINION, WAS THE INCIDENT THAT THE PATIENT DESCRIBED THE COMPETENT MEDICAL CAUSE OF THIS INJURY/ILLNESS? YES ARE THE PATIENT'S COMPLAINTS CONSISTENT WITH HIS/HER HISTORY OF THE INJURY/ILLNESS? YES IS THE PATIENT'S HISTORY OF THE INJURY/ILLNESS CONSISTENT WITH YOUR OBJECTIVE FINDING? YES WHAT IS THE PERCENTAGE OF TEMPORARY IMPAIRMENT? MODERATE TO MARKED = 66.7% IS THE PATIENT WORKING? YES DOCTOR ON SITE: MARJORIE PEARSON MD PROCEDURE CODES FA211 ESTABILISHED PATIENT [facility] FACILITY CHARGE G8427 CURRENT MEDS W/DOSAGES DOCUMENTED G8730 PAIN ASSESS POS TOOL F/U PLAN DOC DISPOSITION & COMMUNICATION FOLLOW UP 6 WEEKS ELECTRONICALLY SIGNED BY MARJORIE KRISHNAMURTHY MD, ON 12/22/2018 AT 06:23 PM EDT DISCLAIMER : THIS IS A VISIT SUMMARY EXTRACTED FROM THE [employer] CHART. IT IS NOT A COPY OF THE [employer] PROGRESS NOTE. MTDD
== END ==
LOC: M PAIN 08:30
PROVIDERS: ATTEND Anesthesiology
DX: M47.812 Spondylosis without myelopathy or radiculopathy, cervical region (principal); E03.9 Hypothyroidism, unspecified; F32.9 Major depressive disorder, single episode, unspecified; M79.7 Fibromyalgia; Z79.891 Long term (current) use of opiate analgesic; Z79.899 Other long term (current) drug therapy; Z86.69 Personal history of other diseases of the nervous system and sense organs; Z87.891 Personal history of nicotine dependence

== ENCOUNTER → 2019-01-27 | Outpatient (CLI) | payer OTHER ==
--- NOTE | 2019-02-07 23:31 | ECWPNPC ---
PATIENT NAME: RAYRAY SERRA : 1960 GENDER: FEMALE VISIT DATE: 01/27/2019 DISCHARGE DATE: 01/27/191538 VISIT LOCKED DATE TIME: PHYSICIAN: MARJORIE KRISHNAMURTHY MD RESOURCE: MARJORIE KRISHNAMURTHY MD REASON FOR APPOINTMENT 1. NECK WC HISTORY OF PRESENT ILLNESS HISTORY OF PRESENT ILLNESS: PAIN THE PATIENT DESCRIBES THE PAIN... 58 YEAR OLD FEMALE PATIENT WITH A HISTORY OF CHRONIC NECK PAIN. THE PATIENT DESCRIBES THE PAIN ACHING, SORE, TENDER, AND CONTINUOUS WITH A PAIN SCORE OF 3-6/10 DEPENDING ON PHYSICAL ACTIVITY. 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 THE PATIENT SAYS THAT HER PAIN IS MAINLY IN HER NECK, BUT IT ALSO RADIATES DOWN HER ARMS. THE PATIENT SAYS THAT THE PAIN AND TINGLING DOWN HER ARMS HAS INCREASED RECENTLY. THE PATIENT IS CURRENTLY USING GABAPENTIN AND HYDROCODONE TO AID IN PAIN RELIEF. THE PATIENT SAYS THAT SHE HAS NOT NEEDED TO USE THE BACLOFEN. PATIENT DENIES UNEXPLAINABLE WEIGHT LOSS, FEVER, CHILLS, NEW CHANGES ON HER URINARY OR BOWEL CONTROL. FALL RISK SCREENING: SCREENING :NO FALLS REPORTED IN THE LAST YEAR CURRENT MEDICATIONS TAKING GABAPENTIN 300 300 MG TABLET 1 TABLET ORAL TID TAKING LEVOTHYROXINE SODIUM 88 MCG TABLET 1 TAB(S) ORALLY ONCE A DAY TAKING NEXIUM 40 MG CAPSULE DELAYED RELEASE 1 CAPSULE ORALLY NEEDED TAKING CETIRIZINE HCL 10 MG TABLET 1 TABLET ORALLY ONCE A DAY NEEDED TAKING SIMVASTATIN 20 MG TABLET 1 TABLET IN THE EVENING ORALLY ONCE A DAY TAKING LIDOCAINE 5 % PATCH 2 PATCHS TO INTACT SKIN REMOVE AFTER 12 HOURS EXTERNALLY ON 12 HRS/OFF 12 HRS TO NECK AREA MDD=2, NOTES: WORKERS COMP TAKING ESCITALOPRAM OXALATE 10 MG TABLET 1 TABLET ORALLY ONCE A DAY TAKING TRAZODONE HCL 100 MG TABLET 1 1/2 TABLET AT BEDTIME ORALLY ONCE A DAY TAKING NORCO 5-325 MG TABLET 1 TABLET ORALLY EVERY 6 HRS PRN PAIN MDD=3 CHRONIC PAIN TAKING IBUPROFEN 800 MG TABLET 1 TABLET WITH FOOD OR MILK NEEDED ORALLY EVERY 6 HOURS NEEDED MDD3 TAKING ROPINIROLE HCL 4 MG TABLET 1 TABLET 1 TO 3 HOURS BEFORE BEDTIME ORALLY ONCE A DAY NOT-TAKING BACLOFEN 20 MG TABLET 1 TAB(S) ORALLY BID NOT-TAKING ESTRACE 0.1 MG/GM CREAM 0.5 GM VAGINAL EVERY NIGHT X 14 THEN TWICE A WEEK NOT-TAKING ELAVIL 25MG TABLET 1 TAB(S) ORAL ONCE A DAY NOT-TAKING AMITRIPTYLINE HCL 25 MG TABLET 3 TABLET ORALLY QHS NOT-TAKING LIDOCAINE VISCOUS 2 % SOLUTION 15 ML TO AFFECTED AREA NEEDED MOUTH/THROAT EVERY 3 HRS TO PAIN GUM AREAS NOT-TAKING VALIUM 5 MG TABLET 1 TABLET NEEDED ORALLY Q 8 HRS FOR SEVERE SPASM MDD=3S NOT-TAKING PROZAC 20 MG CAPSULE 1 CAPSULE IN THE MORNING ORALLY ONCE A DAY NOT-TAKING FLUOXETINE 40 MG CAPSULE 1 CAPSULE IN THE MORNING ORALLY ONCE A DAY MEDICATION LIST REVIEWED AND RECONCILED WITH THE PATIENT PAST MEDICAL HISTORY MYOFASCIAL PAIN SYNDROME IN HER BACK HYPOTHYROIDISM DEGENERATIVE DISC DISEASE THORACIC OUTLET SYNDROME PERIMENOPAUSAL, SYMPTOMATIC DEPRESSION FIBROMYALGIA VERTIGO RESTLESS LEG SYNDROME ALLERGIES N.K.D.A. SURGICAL HISTORY SECTION TUBAL LIGATION REMOVAL OF ONE RIB LEFT BREAST LUMPECTOMY 1996 D&C COLPOSCOPY FAMILY HISTORY FATHER: 81 YRS, COLON AND LIVER CANCER, DIAGNOSED AT 78. MOTHER: ALIVE 78 YRS, HYPERTENSION, HYPOTHYROIDISM SIBLINGS: HYPERTENSION, AAA, SISTER [place] AGE 55 DEID ,BROTHER POSSIBLE DRUGS ABUSE AGE 57 2 BROTHER(S) , 1 SISTER(S) . 1 SON(S) , 1 DAUGHTER(S) . BROTHER AT 50, RUPTURED AAA. DAUGHTER WITH HEPATITIS C. DENIES FAMILY HX OF BREAST OR OVARIAN CANCER. NO OTHER COLON CANCER IN FAMILY. \\\\NFATHER OF LIVER CANCER. SOCIAL HISTORY GENERAL: TOBACCO USE ARE YOU A:FORMER SMOKER NICOTINE PATCH HOW LONG HAS IT BEEN SINCE YOU LAST SMOKED?1-3 MONTHS OTHERS AT HOME: SPOUSE. EDUCATION LEVEL OF EDUCATION:NOT FINISHED HIGH SCHOOL 9TH GRADE DIET: HAS IMPROVED. INCREASED FRUIT. LANGUAGE LANGUAGES SPOKEN:TURKMEN DOMESTIC VIOLENCE DENIES. RECREATIONAL DRUG USE DENIES. EXERCISE: NONE. 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 PAIN CLINIC PFS, CLERGY, PUBLIC HEALTH REFERRALS PFS REFERRAL NEEDED?NO CLERGY REFERRAL NEEDED?NO PUBLIC HEALTH REFERRAL NEEDED?NO HAS THE PATIENT BEEN EDUCATED REGARDING HIS/HER PLAN OF CARE?YES HAS THE PATIENT BEEN EDUCATED REGARDING PAIN, THE RISK FOR PAIN, THE IMPORTANCE OF EFFECTIVE PAIN MANAGEMENT, AND THE PAIN ASSESSMENT PROCESS?YES LATEX QUESTIONNAIRE LATEX ALLERGY : HAVE YOU EVER DEVELOPED ANY TYPE OF REACTION AFTER HANDLING LATEX PRODUCTS SUCH RUBBER GLOVES, CONDOMS, DIAPHRAGMS, BALLOONS, SOCKS, OR UNDERWEAR?YES HAS BEEN GETTING RASH FROM [place], [place] FOR HER ELBOW - PLEASE INDICATE :OTHER (DOCUMENT IN NOTES) LATEX ALLERGY : HAVE YOU EVER DEVELOPED ANY TYPE OF REACTION DURING OR AFTER DENTAL APPOINTMENT, VAGINAL/RECTAL EXAMINATION, SURGICAL PROCEDURE, OR ANY OTHER EXPOSURE?NO LATEX RISK : HAVE YOU EVER HAD ANY DIFFICULTY BREATHING OR HIVES AFTER EATING OR HANDLING ANY FRUITS, OR VEGETABLES; SUCH KIWI, BANANAS, STONE FRUITS, OR CHESTNUTSNO LATEX RISK : DO YOU HAVE A PREVIOUS PERSONAL HISTORY OF MORE THAN NINE SURGERIES, SPINA BIFIDA, OR REPEATED CATHERTIZATIONS? NO LATEX RISK : ARE YOU FREQUENTLY EXPOSED TO LATEX PRODUCTS IN YOUR OCCUPATION?NO DATE ASKED : 01/27/2019 CAFFEINE 2 CUPS DAILY. ADVANCE DIRECTIVE ADVANCE DIRECTIVE DISCUSSED WITH PATIENT:YES 01/27/19 PT DOES NOT HAVE ANY ADVANCED DIRECTIVES . HCP INFORMATION GIVEN. ASSISTANCE OFFERED IN COMPLETING FORM IF NEEDED. AD MORAVIAN [id number] SHINTO MARITAL STATUS: . 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 NOW THAT THERE WILL BE A CHANGE IN MGMT, SHE IS PREPARING TO RETURN.. REVIEWED WITH PATIENT. 12/08/18 0853 BV. HOSPITALIZATION/MAJOR DIAGNOSTIC PROCEDURE SURGERIES REVIEW OF SYSTEMS REVIEWED BY: PROVIDER: MARJORIE KRISHNAMURTHY MD . CONSTITUTIONAL: ANY CHANGE IN YOUR MEDICAL CONDITION? NO . CHILLS NO . FEVER NO . INFECTION: DO YOU HAVE NEW INFECTIONS? NO . DO YOU HAVE HISTORY OF MRSA? NO . MUSCULOSKELETAL: ANY NEW PATTERNS OF PAIN OR NUMBNESS? NO . GASTROENTEROLOGY: ANY NEW CHANGE IN BOWEL CONTROL? NO . GENITOURINARY: ANY NEW CHANGE IN BLADDER CONTROL? NO . IS THERE A CHANCE YOU COULD BE ? NO . HEMATOLOGY/LYMPH: DO YOU TAKE ANY BLOOD THINNERS? (FOR EXAMPLE- COUMADIN, PLAVIX, AGGRENOX, PLATEL, PRADAXA, OR XARELTO) NO . WHEN WAS YOUR LAST DOSE? DATE: TIME: . NEUROLOGY: HAVE YOU FALLEN IN THE PAST 12 MONTHS? NO . ANY NEW EXTREMITY NUMBNESS OR WEAKNESS? YES, "THE NERVES IN HER ARMS ARE BOTHERING HER, HER LEGS ARE GETTING REALLY TIRED OUT" . CARDIOLOGY: DO YOU HAVE A PACEMAKER OR DEFIBRILLATOR? NO . RESPIRATORY: HAVE YOU BEEN SICK IN THE PAST WEEK? NO . FEVER NO . FLU LIKE SYMPTOMS? NO . COUGH NO . INTEGUMENTARY: DO YOU HAVE ANY RASHES OR OPEN SORES? YES, RASH ON RIGHT ARM FORM [place] . ALLERGIC/IMMUNO: ARE YOU ALLERGIC TO IV DYE? NO . ANY NEW ALLERGIES? NO . PSYCHIATRIC: DO YOU HAVE THOUGHTS OF HURTING YOURSELF OR SOMEONE ELSE? NO . ARE YOU ABUSED, NEGLECTED, OR IN AN UNSAFE ENVIRONMENT? NO . ENDOCRINOLOGY: ARE YOU DIABETIC? NO . OTHER: DO YOU NEED ANY PRESCRIPTIONS? NO . IF YES, PLEASE LIST: ____ . ANY NEW PROBLEMS WITH YOUR MEDICATIONS? NO . WHEN DID YOU LAST EAT? ____ . WHEN DID YOU LAST DRINK? ____ . WHAT DID YOU LAST DRINK? ____ . NAME OF PERSON DRIVING YOU HOME? ____ . DO YOU HAVE ANY OTHER QUESTIONS OR CONCERNS NO . VITAL SIGNS WT 150.0 LBS, HT 62 1/2, BMI 27.00 INDEX, BP 109/56 MM HG, HR 75 /MIN, RR 18 /MIN, TEMP 97.6 F, OXYGEN SAT % 97, SAFE IN ENV? (Y/N) Y, NA INITIALS MP 1415, REVIEWED BY: BAUTISTA. EXAMINATION GENERAL EXAMINATION: PATIENT IS ALERT O X 3 AND COOPERATIVE. TENDERNESS IN THE NECK AREA. MRI OF THE CERVICAL SPINE DONE ON 11/22/2016 SHOWS BULGING DISCS AND STENOSIS AT MULTIPLE LEVELS. ASSESSMENTS CERVICAL DISC DISORDER WITH RADICULOPATHY OF CERVICAL REGION - M50.10 (PRIMARY) TREATMENT CERVICAL DISC DISORDER WITH RADICULOPATHY OF CERVICAL REGION CLINICAL NOTES: WE DISCUSSED SEVERAL ISSUES WITH MRS. SERRA'S PAIN MANAGEMENT CASE. I WILL INCREASE THE PATIENT'S GABAPENTIN TO 400MG FOR THE NEUROPATHIC PAIN. THE PATIENT WILL CONTINUE USING THE HYDROCODONE FOR SOMATIC PAIN AND I WILL GIVE HER 70 TABLETS FOR THE MONTH. ISTOP _#[id number] WAS REVIEWED. URINE TOXICOLOGY DONE ON 10/10/2018 SHOWS CONCURRENT RESULTS. THE PATIENT WILL FOLLOW UP IN A MONTH. INSTRUCTIONS WERE GIVEN, QUESTIONS WERE ANSWERED, PATIENT REPORTS UNDERSTANDING AND AGREES WITH THE PLAN. I, LOUISA FISHER, DOCUMENTED THE ABOVE INFORMATION ACTING A SCRIBE FOR DR. KRISHNAMURTHY. I HAVE REVIEWED THE ABOVE DOCUMENT, WRITTEN BY LOUISA DIAZ AND I VERIFY THAT IT IS ACCURATE. . OTHERS REFILL NORCO TABLET, 5-325 MG, 1 TABLET, ORALLY, EVERY 6 HRS PRN PAIN MDD=3 CHRONIC PAIN, 30 DAY(S), 70, REFILLS 0 START GABAPENTIN CAPSULE, 400 MG, DIRECTED, ORALLY FOR PAIN, THREE TIMES DAILY MDD3, 30 DAYS, 90, REFILLS 1 PROCEDURES PN WORKMANS' COMP OPINION IN YOUR OPINION, WAS THE INCIDENT THAT THE PATIENT DESCRIBED THE COMPETENT MEDICAL CAUSE OF THIS INJURY/ILLNESS? YES ARE THE PATIENT'S COMPLAINTS CONSISTENT WITH HIS/HER HISTORY OF THE INJURY/ILLNESS? YES IS THE PATIENT'S HISTORY OF THE INJURY/ILLNESS CONSISTENT WITH YOUR OBJECTIVE FINDING? YES WHAT IS THE PERCENTAGE OF TEMPORARY IMPAIRMENT? MODERATE TO MARKED = 66.7% IS THE PATIENT WORKING? YES DOCTOR ON SITE: MARJORIE PEARSON MD PROCEDURE CODES FA211 ESTABILISHED PATIENT [facility] FACILITY CHARGE G8427 CURRENT MEDS W/DOSAGES DOCUMENTED G8730 PAIN ASSESS POS TOOL F/U PLAN DOC DISPOSITION & COMMUNICATION FOLLOW UP END OF JANUARY PER DR Flores (REASON: W/C NECK) ELECTRONICALLY SIGNED BY MARJORIE KRISHNAMURTHY MD, MD ON 02/07/2019 AT 07:06 PM EDT DISCLAIMER : THIS IS A VISIT SUMMARY EXTRACTED FROM THE [email or web address] CHART. IT IS NOT A COPY OF THE [email or web address] PROGRESS NOTE. MTDD
== END ==
LOC: M PAIN 14:15
PROVIDERS: ATTEND Anesthesiology
DX: M50.10 Cervical disc disorder with radiculopathy, unspecified cervical region (principal); G89.29 Other chronic pain; E03.9 Hypothyroidism, unspecified; Z86.59 Personal history of other mental and behavioral disorders; M79.7 Fibromyalgia; Z86.69 Personal history of other diseases of the nervous system and sense organs; G25.81 Restless legs syndrome; Z87.891 Personal history of nicotine dependence; Z79.891 Long term (current) use of opiate analgesic; Z79.899 Other long term (current) drug therapy

== ENCOUNTER → 2019-02-23 | Outpatient (CLI) | payer OTHER ==
--- NOTE | 2019-03-04 00:29 | ECWPNPC ---
PATIENT NAME: RAYRAY SERRA : 1960 GENDER: FEMALE VISIT DATE: 02/23/2019 DISCHARGE DATE: 02/23/19 1348 VISIT LOCKED DATE TIME: PHYSICIAN: MARJORIE KRISHNAMURTHY MD RESOURCE: MARJORIE KRISHNAMURTHY MD REASON FOR APPOINTMENT 1. W/C NECK HISTORY OF PRESENT ILLNESS HISTORY OF PRESENT ILLNESS: PAIN THE PATIENT DESCRIBES THE PAIN... 58 YEAR OLD FEMALE PATIENT WITH A HISTORY OF CHRONIC NECK PAIN. THE PATIENT DESCRIBES THE PAIN ACHING, STABBING, SORE, TENDER, DAILY, AND CONTINUOUS WITH A PAIN SCORE OF 4-8/10 DEPENDING ON PHYSICAL ACTIVITY. 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 THE PATIENT STATES THAT HER PAIN IS MAINLY LOCATED IN HER NECK, BUT IT ALSO RADIATES DOWN HER THORACIC AND DOWN BOTH ARMS. THE PATIENT SAYS SHE EXPERIENCES PAIN AND TINGLING SENSATIONS DOWN BOTH OF HER ARMS. THE PATIENT IS CURRENTLY TAKING GABAPENTIN THAT WAS INCREASED FROM 300 MG TO 400 MG UP TO THREE TIMES DAILY AT THE LAST VISIT, WHICH SHE SAYS SHE IS NOTICING SOME IMPROVEMENT WITH HER PAIN. THE PATIENT SAYS SHE IS ALSO TAKING IBUPROFEN 2 TABLETS DAILY, 60 PER MONTH TO AID IN PAIN RELIEF WELL. , PATIENT DENIES UNEXPLAINABLE WEIGHT LOSS, FEVER, CHILLS, NEW CHANGES ON HER URINARY OR BOWEL CONTROL. FALL RISK SCREENING: SCREENING :NO FALLS REPORTED IN THE LAST YEAR CURRENT MEDICATIONS TAKING NORCO 5-325 MG TABLET 1 TABLET ORALLY EVERY 6 HRS PRN PAIN MDD=3 CHRONIC PAIN TAKING GABAPENTIN 400 MG CAPSULE DIRECTED ORALLY FOR PAIN THREE TIMES DAILY MDD3 TAKING GABAPENTIN 300 300 MG TABLET 1 TABLET ORAL TID TAKING LEVOTHYROXINE SODIUM 88 MCG TABLET 1 TAB(S) ORALLY ONCE A DAY TAKING NEXIUM 40 MG CAPSULE DELAYED RELEASE 1 CAPSULE ORALLY NEEDED TAKING CETIRIZINE HCL 10 MG TABLET 1 TABLET ORALLY ONCE A DAY NEEDED TAKING SIMVASTATIN 20 MG TABLET 1 TABLET IN THE EVENING ORALLY ONCE A DAY TAKING LIDOCAINE 5 % PATCH 2 PATCHS TO INTACT SKIN REMOVE AFTER 12 HOURS EXTERNALLY ON 12 HRS/OFF 12 HRS TO NECK AREA MDD=2, NOTES: WORKERS COMP TAKING ESCITALOPRAM OXALATE 10 MG TABLET 1 TABLET ORALLY ONCE A DAY TAKING TRAZODONE HCL 100 MG TABLET 1 1/2 TABLET AT BEDTIME ORALLY ONCE A DAY TAKING IBUPROFEN 800 MG TABLET 1 TABLET WITH FOOD OR MILK NEEDED ORALLY EVERY 6 HOURS NEEDED MDD3 TAKING ROPINIROLE HCL 4 MG TABLET 1 TABLET 1 TO 3 HOURS BEFORE BEDTIME ORALLY ONCE A DAY NOT-TAKING BACLOFEN 20 MG TABLET 1 TAB(S) ORALLY BID NOT-TAKING ESTRACE 0.1 MG/GM CREAM 0.5 GM VAGINAL EVERY NIGHT X 14 THEN TWICE A WEEK NOT-TAKING ELAVIL 25MG TABLET 1 TAB(S) ORAL ONCE A DAY NOT-TAKING AMITRIPTYLINE HCL 25 MG TABLET 3 TABLET ORALLY QHS NOT-TAKING LIDOCAINE VISCOUS 2 % SOLUTION 15 ML TO AFFECTED AREA NEEDED MOUTH/THROAT EVERY 3 HRS TO PAIN GUM AREAS NOT-TAKING VALIUM 5 MG TABLET 1 TABLET NEEDED ORALLY Q 8 HRS FOR SEVERE SPASM MDD=3S NOT-TAKING PROZAC 20 MG CAPSULE 1 CAPSULE IN THE MORNING ORALLY ONCE A DAY NOT-TAKING FLUOXETINE 40 MG CAPSULE 1 CAPSULE IN THE MORNING ORALLY ONCE A DAY MEDICATION LIST REVIEWED AND RECONCILED WITH THE PATIENT PAST MEDICAL HISTORY MYOFASCIAL PAIN SYNDROME IN HER BACK HYPOTHYROIDISM DEGENERATIVE DISC DISEASE THORACIC OUTLET SYNDROME PERIMENOPAUSAL, SYMPTOMATIC DEPRESSION FIBROMYALGIA VERTIGO RESTLESS LEG SYNDROME ALLERGIES N.K.D.A. SURGICAL HISTORY SECTION TUBAL LIGATION REMOVAL OF ONE RIB LEFT BREAST LUMPECTOMY 1996 D&C COLPOSCOPY FAMILY HISTORY FATHER: 81 YRS, COLON AND LIVER CANCER, DIAGNOSED AT 78. MOTHER: ALIVE 78 YRS, HYPERTENSION, HYPOTHYROIDISM SIBLINGS: HYPERTENSION, AAA, SISTER [place] AGE 55 DEID ,BROTHER POSSIBLE DRUGS ABUSE AGE 57 2 BROTHER(S) , 1 SISTER(S) . 1 SON(S) , 1 DAUGHTER(S) . BROTHER AT 50, RUPTURED AAA. DAUGHTER WITH HEPATITIS C. DENIES FAMILY HX OF BREAST OR OVARIAN CANCER. NO OTHER COLON CANCER IN FAMILY. \\NFATHER OF LIVER CANCER. SOCIAL HISTORY GENERAL: TOBACCO USE ARE YOU A:FORMER SMOKER NICOTINE PATCH HOW LONG HAS IT BEEN SINCE YOU LAST SMOKED?1-3 MONTHS OTHERS AT HOME: SPOUSE. EDUCATION LEVEL OF EDUCATION:NOT FINISHED HIGH SCHOOL 9TH GRADE DIET: HAS IMPROVED. INCREASED FRUIT. LANGUAGE LANGUAGES SPOKEN:KYRGYZ DOMESTIC VIOLENCE DENIES. RECREATIONAL DRUG USE DENIES. EXERCISE: NONE. 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 PAIN CLINIC PFS, CLERGY, PUBLIC HEALTH REFERRALS PFS REFERRAL NEEDED?NO CLERGY REFERRAL NEEDED?NO PUBLIC HEALTH REFERRAL NEEDED?NO HAS THE PATIENT BEEN EDUCATED REGARDING HIS/HER PLAN OF CARE?YES HAS THE PATIENT BEEN EDUCATED REGARDING PAIN, THE RISK FOR PAIN, THE IMPORTANCE OF EFFECTIVE PAIN MANAGEMENT, AND THE PAIN ASSESSMENT PROCESS?YES LATEX QUESTIONNAIRE LATEX ALLERGY : HAVE YOU EVER DEVELOPED ANY TYPE OF REACTION AFTER HANDLING LATEX PRODUCTS SUCH RUBBER GLOVES, CONDOMS, DIAPHRAGMS, BALLOONS, SOCKS, OR UNDERWEAR?YES HAS BEEN GETTING RASH FROM [place] FOR HER ELBOW - PLEASE INDICATE :OTHER (DOCUMENT IN NOTES) LATEX ALLERGY : HAVE YOU EVER DEVELOPED ANY TYPE OF REACTION DURING OR AFTER DENTAL APPOINTMENT, VAGINAL/RECTAL EXAMINATION, SURGICAL PROCEDURE, OR ANY OTHER EXPOSURE?NO LATEX RISK : HAVE YOU EVER HAD ANY DIFFICULTY BREATHING OR HIVES AFTER EATING OR HANDLING ANY FRUITS, OR VEGETABLES; SUCH KIWI, BANANAS, STONE FRUITS, OR CHESTNUTSNO LATEX RISK : DO YOU HAVE A PREVIOUS PERSONAL HISTORY OF MORE THAN NINE SURGERIES, SPINA BIFIDA, OR REPEATED CATHERTIZATIONS? NO LATEX RISK : ARE YOU FREQUENTLY EXPOSED TO LATEX PRODUCTS IN YOUR OCCUPATION?NO DATE ASKED : 01/27/2019 CAFFEINE 2 CUPS DAILY. ADVANCE DIRECTIVE ADVANCE DIRECTIVE DISCUSSED WITH PATIENT:YES PT DOES NOT HAVE ANY ADVANCED DIRECTIVES . HCP INFORMATION GIVEN. ASSISTANCE OFFERED IN COMPLETING FORM IF NEEDED. MORMONISM [id number] EPISCOPAL MARITAL STATUS: . 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 NOW THAT THERE WILL BE A CHANGE IN MGMT, SHE IS PREPARING TO RETURN.. REVIEWED WITH PATIENT. 12/08/18 0853 BV. HOSPITALIZATION/MAJOR DIAGNOSTIC PROCEDURE SURGERIES REVIEW OF SYSTEMS REVIEWED BY: PROVIDER: MARJORIE KRISHNAMURTHY MD . CONSTITUTIONAL: ANY CHANGE IN YOUR MEDICAL CONDITION? NO . CHILLS NO . FEVER NO . INFECTION: DO YOU HAVE NEW INFECTIONS? NO . DO YOU HAVE HISTORY OF MRSA? NO . MUSCULOSKELETAL: ANY NEW PATTERNS OF PAIN OR NUMBNESS? NO . GASTROENTEROLOGY: ANY NEW CHANGE IN BOWEL CONTROL? NO . GENITOURINARY: ANY NEW CHANGE IN BLADDER CONTROL? NO . IS THERE A CHANCE YOU COULD BE ? NO . HEMATOLOGY/LYMPH: DO YOU TAKE ANY BLOOD THINNERS? (FOR EXAMPLE- COUMADIN, PLAVIX, AGGRENOX, PLATEL, PRADAXA, OR XARELTO) NO . WHEN WAS YOUR LAST DOSE? DATE: TIME: . NEUROLOGY: HAVE YOU FALLEN IN THE PAST 12 MONTHS? NO . ANY NEW EXTREMITY NUMBNESS OR WEAKNESS? YES, BILAT ARM WEAKNESS . CARDIOLOGY: DO YOU HAVE A PACEMAKER OR DEFIBRILLATOR? NO . RESPIRATORY: HAVE YOU BEEN SICK IN THE PAST WEEK? NO . FEVER NO . FLU LIKE SYMPTOMS? NO . COUGH NO . INTEGUMENTARY: DO YOU HAVE ANY RASHES OR OPEN SORES? NO . ALLERGIC/IMMUNO: ARE YOU ALLERGIC TO IV DYE? NO . ANY NEW ALLERGIES? NO . PSYCHIATRIC: DO YOU HAVE THOUGHTS OF HURTING YOURSELF OR SOMEONE ELSE? NO . ARE YOU ABUSED, NEGLECTED, OR IN AN UNSAFE ENVIRONMENT? NO . ENDOCRINOLOGY: ARE YOU DIABETIC? NO . OTHER: DO YOU NEED ANY PRESCRIPTIONS? YES, NORCO . IF YES, PLEASE LIST: ____ . ANY NEW PROBLEMS WITH YOUR MEDICATIONS? NO . WHEN DID YOU LAST EAT? ____ . WHEN DID YOU LAST DRINK? ____ . WHAT DID YOU LAST DRINK? ____ . NAME OF PERSON DRIVING YOU HOME? ____ . DO YOU HAVE ANY OTHER QUESTIONS OR CONCERNS NO . VITAL SIGNS WT 155.6 LBS, HT 62 1/2, BMI 28.00 INDEX, BP 104/59 MM HG, HR 67 /MIN, RR 16 /MIN, TEMP 97.9 F, OXYGEN SAT % 97%, NA INITIALS SC 13:24. EXAMINATION GENERAL EXAMINATION: PATIENT IS ALERT O X 3 AND COOPERATIVE. TENDERNESS IN THE CERVICAL SPINE. STIFFNESS WITH EXTENSION. PAIN IN THE MEDIAL ASPECTS OF BOTH ARMS. MRI OF THE CERVICAL SPINE DONE ON 11/22/2016 SHOWS BULGING DISCS OF C5-C6 AND C6-C7 LEVELS AND DISC PROTRUSION AT C7-T1 LEVEL. ASSESSMENTS CERVICAL DISC DISORDER WITH RADICULOPATHY OF CERVICAL REGION - M50.10 (PRIMARY) TREATMENT CERVICAL DISC DISORDER WITH RADICULOPATHY OF CERVICAL REGION CLINICAL NOTES: WE DISCUSSED SEVERAL ISSUES WITH MS. SERRA'S PAIN MANAGEMENT CASE. I DISCUSSED WITH THE PATIENT ABOUT POSSIBLE INTERVENTIONAL THERAPIES TO TRY, SUCH TRIGGER POINT INJECTIONS OR A CERVICAL EPIDURAL. THE PATIENT IS NOT INTERESTED IN TRIGGER POINTS DUE TO NO RELIEF FROM THEM IN THE PAST, BUT MAY CONSIDER THE CERVICAL EPIDURAL IN THE FUTURE. I WILL BE LOOKING FOR LONG LASTING PAIN RELIEF FOR THE PATIENT WITH THIS INJECTION. THE PATIENT WILL CONTINUE WITH HER CURRENT MEDICATION REGIMEN OF NORCO 5-325 MG, GABAPENTIN 400 MG, AND IBUPROFEN 800 MG, WHICH I REFILLED FOR HER TODAY SINCE SHE WILL BE AWAY ON VACATION FOR THE NEXT COUPLE OF MONTHS. THE PATIENT BROUGHT HER MEDICATIONS IN THEIR ORIGINAL BOTTLES TO TODAY'S VISIT. UTOX DONE ON 10/10/2018 SHOWS CONCURRENT RESULTS. ISTOP _# [id number] WAS REVIEWED. THE PATIENT WILL FOLLOW UP IN 3 MONTHS. INSTRUCTIONS WERE GIVEN, QUESTIONS WERE ANSWERED, PATIENT REPORTS UNDERSTANDING AND AGREES WITH THE PLAN. I, MARCOS SCHULER, DOCUMENTED THE ABOVE INFORMATION ACTING A SCRIBE FOR DR. KRISHNAMURTHY. I HAVE REVIEWED THE ABOVE DOCUMENT, WRITTEN BY MARCOS DIAZ AND I VERIFY THAT IT IS ACCURATE. . OTHERS REFILL NORCO TABLET, 5-325 MG, 1 TABLET, ORALLY (CODE D FOR CHRONIC PAIN), EVERY 6 HRS PRN PAIN MDD=3 CHRONIC PAIN, 60 DAYS, 160, REFILLS 0 REFILL GABAPENTIN CAPSULE, 400 MG, DIRECTED, ORALLY FOR PAIN (CODE D CHRONIC PAIN), THREE TIMES DAILY MDD3, 60 DAYS, 180, REFILLS 0 REFILL IBUPROFEN TABLET, 800 MG, 1 TABLET WITH FOOD OR MILK NEEDED, ORALLY (CHRONIC PAIN CODE D), EVERY 6 HOURS NEEDED MDD3, 60 DAYS, 120, REFILLS 0 PROCEDURES PN WORKMANS' COMP OPINION IN YOUR OPINION, WAS THE INCIDENT THAT THE PATIENT DESCRIBED THE COMPETENT MEDICAL CAUSE OF THIS INJURY/ILLNESS? YES ARE THE PATIENT'S COMPLAINTS CONSISTENT WITH HIS/HER HISTORY OF THE INJURY/ILLNESS? YES IS THE PATIENT'S HISTORY OF THE INJURY/ILLNESS CONSISTENT WITH YOUR OBJECTIVE FINDING? YES WHAT IS THE PERCENTAGE OF TEMPORARY IMPAIRMENT? MODERATE TO MARKED = 66.7% IS THE PATIENT WORKING? YES DOCTOR ON SITE: MARJORIE PEARSON MD PROCEDURE CODES FA211 ESTABILISHED PATIENT [facility] FACILITY CHARGE G3627 CURRENT MEDS W/DOSAGES DOCUMENTED G8730 PAIN ASSESS POS TOOL F/U PLAN DOC DISPOSITION & COMMUNICATION FOLLOW UP 3 MONTHS (REASON: MEDS) ELECTRONICALLY SIGNED BY MARJORIE KRISHNAMURTHY MD, MD ON 03/03/2019 AT 03:44 PM EDT DISCLAIMER : THIS IS A VISIT SUMMARY EXTRACTED FROM THE [employer] CHART. IT IS NOT A COPY OF THE [employer] PROGRESS NOTE. FANG
== END ==
LOC: M PAIN 13:15
PROVIDERS: ATTEND Anesthesiology
DX: M50.10 Cervical disc disorder with radiculopathy, unspecified cervical region (principal); E03.9 Hypothyroidism, unspecified; F32.9 Major depressive disorder, single episode, unspecified; M79.7 Fibromyalgia; R42 Dizziness and giddiness; N95.1 Menopausal and female climacteric states; G25.81 Restless legs syndrome; Z87.891 Personal history of nicotine dependence; Z79.891 Long term (current) use of opiate analgesic

== ENCOUNTER → 2019-05-25 | Outpatient (CLI) | payer OTHER ==
--- NOTE | 2019-05-27 02:33 | ECWPNPC ---
PATIENT NAME: RAYRAY SERRA : 1960 GENDER: FEMALE VISIT DATE: 05/25/2019 DISCHARGE DATE: 05/25/19 1440 VISIT LOCKED DATE TIME: PHYSICIAN: JUANA MCNEILL RESOURCE: JUANA MCNEILL REASON FOR APPOINTMENT 1. W/C NECK/MEDS HISTORY OF PRESENT ILLNESS HISTORY OF PRESENT ILLNESS: PAIN THE PATIENT DESCRIBES THE PAIN... THE PATIENT DESCRIBES THE PAIN... 58 YEAR OLD FEMALE PATIENT WITH A HISTORY OF CHRONIC NECK PAIN. THE PATIENT DESCRIBES THE PAIN ACHING, , SORE, SHARP, TENDER, DAILY, AND CONTINUOUS WITH A PAIN SCORE OF 5/10 DEPENDING ON PHYSICAL ACTIVITY. 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 THE PATIENT STATES THAT HER PAIN IS MAINLY LOCATED IN HER NECK, BUT IT ALSO RADIATES DOWN HER THORACIC AND DOWN BOTH ARMS. THE PATIENT SAYS SHE EXPERIENCES PAIN AND TINGLING SENSATIONS DOWN BOTH OF HER ARMS. FALL RISK SCREENING: SCREENING :NO FALLS REPORTED IN THE LAST YEAR CURRENT MEDICATIONS TAKING LEVOTHYROXINE SODIUM 88 MCG TABLET 1 TAB(S) ORALLY ONCE A DAY TAKING NEXIUM 40 MG CAPSULE DELAYED RELEASE 1 CAPSULE ORALLY NEEDED TAKING CETIRIZINE HCL 10 MG TABLET 1 TABLET ORALLY ONCE A DAY NEEDED TAKING SIMVASTATIN 20 MG TABLET 1 TABLET IN THE EVENING ORALLY ONCE A DAY TAKING LIDOCAINE 5 % PATCH 2 PATCHS TO INTACT SKIN REMOVE AFTER 12 HOURS EXTERNALLY ON 12 HRS/OFF 12 HRS TO NECK AREA MDD=2, NOTES: WORKERS COMP TAKING ESCITALOPRAM OXALATE 10 MG TABLET 1 TABLET ORALLY ONCE A DAY TAKING TRAZODONE HCL 100 MG TABLET 1 1/2 TABLET AT BEDTIME ORALLY ONCE A DAY TAKING ROPINIROLE HCL 4 MG TABLET 1 TABLET 1 TO 3 HOURS BEFORE BEDTIME ORALLY ONCE A DAY TAKING GABAPENTIN 400 MG CAPSULE DIRECTED ORALLY FOR PAIN THREE TIMES DAILY MDD3 TAKING NORCO 5-325 MG TABLET 1 TABLET ORALLY EVERY 6 HRS PRN PAIN MDD=3 CHRONIC PAIN TAKING IBUPROFEN 800 MG TABLET 1 TABLET WITH FOOD OR MILK NEEDED ORALLY EVERY 6 HOURS NEEDED MDD3 NOT-TAKING BACLOFEN 20 MG TABLET 1 TAB(S) ORALLY BID NOT-TAKING ESTRACE 0.1 MG/GM CREAM 0.5 GM VAGINAL EVERY NIGHT X 14 THEN TWICE A WEEK NOT-TAKING ELAVIL 25MG TABLET 1 TAB(S) ORAL ONCE A DAY NOT-TAKING AMITRIPTYLINE HCL 25 MG TABLET 3 TABLET ORALLY QHS NOT-TAKING LIDOCAINE VISCOUS 2 % SOLUTION 15 ML TO AFFECTED AREA NEEDED MOUTH/THROAT EVERY 3 HRS TO PAIN GUM AREAS NOT-TAKING VALIUM 5 MG TABLET 1 TABLET NEEDED ORALLY Q 8 HRS FOR SEVERE SPASM MDD=3S NOT-TAKING PROZAC 20 MG CAPSULE 1 CAPSULE IN THE MORNING ORALLY ONCE A DAY NOT-TAKING FLUOXETINE 40 MG CAPSULE 1 CAPSULE IN THE MORNING ORALLY ONCE A DAY DISCONTINUED GABAPENTIN 300 300 MG TABLET 1 TABLET ORAL TID MEDICATION LIST REVIEWED AND RECONCILED WITH THE PATIENT PAST MEDICAL HISTORY MYOFASCIAL PAIN SYNDROME IN HER BACK HYPOTHYROIDISM DEGENERATIVE DISC DISEASE THORACIC OUTLET SYNDROME PERIMENOPAUSAL, SYMPTOMATIC DEPRESSION FIBROMYALGIA VERTIGO RESTLESS LEG SYNDROME ALLERGIES N.K.D.A. SURGICAL HISTORY SECTION TUBAL LIGATION REMOVAL OF ONE RIB LEFT BREAST LUMPECTOMY 1996 D&C COLPOSCOPY FAMILY HISTORY FATHER: 81 YRS, COLON AND LIVER CANCER, DIAGNOSED AT 78. MOTHER: ALIVE 78 YRS, HYPERTENSION, HYPOTHYROIDISM SIBLINGS: HYPERTENSION, AAA, SISTER ID AGE 55 DEID ,BROTHER POSSIBLE DRUGS ABUSE AGE 57 2 BROTHER(S) , 1 SISTER(S) . 1 SON(S) , 1 DAUGHTER(S) . BROTHER AT 50, RUPTURED AAA. DAUGHTER WITH HEPATITIS C. DENIES FAMILY HX OF BREAST OR OVARIAN CANCER. NO OTHER COLON CANCER IN FAMILY. \\NFATHER OF LIVER CANCER. SOCIAL HISTORY GENERAL: TOBACCO USE ARE YOU A:FORMER SMOKER NICOTINE PATCH HOW LONG HAS IT BEEN SINCE YOU LAST SMOKED?1-3 MONTHS OTHERS AT HOME: SPOUSE. EDUCATION LEVEL OF EDUCATION:NOT FINISHED HIGH SCHOOL 9TH GRADE DIET: HAS IMPROVED. INCREASED FRUIT. LANGUAGE LANGUAGES SPOKEN:INDONESIAN DOMESTIC VIOLENCE DENIES. RECREATIONAL DRUG USE DENIES. EXERCISE: NONE. 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?NO PAIN CLINIC PFS, CLERGY, PUBLIC HEALTH REFERRALS PFS REFERRAL NEEDED?NO CLERGY REFERRAL NEEDED?NO PUBLIC HEALTH REFERRAL NEEDED?NO HAS THE PATIENT BEEN EDUCATED REGARDING HIS/HER PLAN OF CARE?YES HAS THE PATIENT BEEN EDUCATED REGARDING PAIN, THE RISK FOR PAIN, THE IMPORTANCE OF EFFECTIVE PAIN MANAGEMENT, AND THE PAIN ASSESSMENT PROCESS?YES LATEX QUESTIONNAIRE LATEX ALLERGY : HAVE YOU EVER DEVELOPED ANY TYPE OF REACTION AFTER HANDLING LATEX PRODUCTS SUCH RUBBER GLOVES, CONDOMS, DIAPHRAGMS, BALLOONS, SOCKS, OR UNDERWEAR?YES HAS BEEN GETTING RASH FROM [place], [place] FOR HER ELBOW LATEX ALLERGY : HAVE YOU EVER DEVELOPED ANY TYPE OF REACTION DURING OR AFTER DENTAL APPOINTMENT, VAGINAL/RECTAL EXAMINATION, SURGICAL PROCEDURE, OR ANY OTHER EXPOSURE?NO - PLEASE INDICATE :OTHER (DOCUMENT IN NOTES) DATE ASKED : 01/27/2019 LATEX RISK : HAVE YOU EVER HAD ANY DIFFICULTY BREATHING OR HIVES AFTER EATING OR HANDLING ANY FRUITS, OR VEGETABLES; SUCH KIWI, BANANAS, STONE FRUITS, OR CHESTNUTSNO LATEX RISK : DO YOU HAVE A PREVIOUS PERSONAL HISTORY OF MORE THAN NINE SURGERIES, SPINA BIFIDA, OR REPEATED CATHERIZATIONS? NO LATEX RISK : ARE YOU FREQUENTLY EXPOSED TO LATEX PRODUCTS IN YOUR OCCUPATION?NO CAFFEINE 2 CUPS DAILY. ADVANCE DIRECTIVE ADVANCE DIRECTIVE DISCUSSED WITH PATIENT:YES PT DOES NOT HAVE ANY ADVANCED DIRECTIVES . HCP INFORMATION GIVEN. ASSISTANCE OFFERED IN COMPLETING FORM IF NEEDED. RESTORATIONIST [id number] BAHAI MARITAL STATUS: . 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 NOW THAT THERE WILL BE A CHANGE IN MGMT, SHE IS PREPARING TO RETURN.. REVIEWED WITH PATIENT. 12/08/18 0853 BV. HOSPITALIZATION/MAJOR DIAGNOSTIC PROCEDURE SURGERIES REVIEW OF SYSTEMS REVIEWED BY: PROVIDER: SAMIR BACA . CONSTITUTIONAL: ANY CHANGE IN YOUR MEDICAL CONDITION? NO . CHILLS NO . FEVER NO . INFECTION: DO YOU HAVE NEW INFECTIONS? NO . DO YOU HAVE HISTORY OF MRSA? NO . MUSCULOSKELETAL: ANY NEW PATTERNS OF PAIN OR NUMBNESS? NO . GASTROENTEROLOGY: ANY NEW CHANGE IN BOWEL CONTROL? NO . GENITOURINARY: ANY NEW CHANGE IN BLADDER CONTROL? NO . IS THERE A CHANCE YOU COULD BE ? NO . HEMATOLOGY/LYMPH: DO YOU TAKE ANY BLOOD THINNERS? (FOR EXAMPLE- COUMADIN, PLAVIX, AGGRENOX, PLATEL, PRADAXA, OR XARELTO) NO . WHEN WAS YOUR LAST DOSE? DATE: TIME: . NEUROLOGY: HAVE YOU FALLEN IN THE PAST 12 MONTHS? NO . ANY NEW EXTREMITY NUMBNESS OR WEAKNESS? YES, BILAT FOOT PAIN, L>R . CARDIOLOGY: DO YOU HAVE A PACEMAKER OR DEFIBRILLATOR? NO . RESPIRATORY: HAVE YOU BEEN SICK IN THE PAST WEEK? NO . FEVER NO . FLU LIKE SYMPTOMS? NO . COUGH NO . INTEGUMENTARY: DO YOU HAVE ANY RASHES OR OPEN SORES? NO . ALLERGIC/IMMUNO: ARE YOU ALLERGIC TO IV DYE? NO . ANY NEW ALLERGIES? NO . PSYCHIATRIC: DO YOU HAVE THOUGHTS OF HURTING YOURSELF OR SOMEONE ELSE? NO . ARE YOU ABUSED, NEGLECTED, OR IN AN UNSAFE ENVIRONMENT? NO . ENDOCRINOLOGY: ARE YOU DIABETIC? NO . OTHER: DO YOU NEED ANY PRESCRIPTIONS? YES, SAMINA, IBUPROFEN, LIDO PATCH, NORCO . IF YES, PLEASE LIST: ____ . ANY NEW PROBLEMS WITH YOUR MEDICATIONS? NO . WHEN DID YOU LAST EAT? ____ . WHEN DID YOU LAST DRINK? ____ . WHAT DID YOU LAST DRINK? ____ . NAME OF PERSON DRIVING YOU HOME? ____ . DO YOU HAVE ANY OTHER QUESTIONS OR CONCERNS NO . VITAL SIGNS WT 157 LBS, HT 62 1/2, BMI 28.25 INDEX, BP 117/56 MM HG, HR 73 /MIN, RR 17 /MIN, TEMP 97.1 F, OXYGEN SAT % 96%, NA INITIALS SC 14:06, REVIEWED BY: WILLIAM. EXAMINATION GENERAL EXAMINATION: GENERALNO ACUTE DISTRESS, WELL NOURISHED AND HYDRATED. PSYCHAPPROPRIATE MOOD AND AFFECT . LUNGS:CLEAR TO AUSCULTATION BILATERALLY, NO WHEEZES, RHONCHI, RALES. HEART:NO MURMURS, REGULAR RATE AND RHYTHM. ASSESSMENTS CERVICAL DISC DISORDER WITH RADICULOPATHY OF CERVICAL REGION - M50.10 (PRIMARY) MYALGIA - M79.1 TREATMENT CERVICAL DISC DISORDER WITH RADICULOPATHY OF CERVICAL REGION CLINICAL NOTES: 50-YEAR-OLD FEMALE IN FOR WORKER'S COMP. CHRONIC PAIN FOLLOW-UP. GIVEN PRESENTING SYMPTOMS AND RESULTS PHYSICAL EXAMINATION RECOMMENDED CONTINUATION OF CURRENT MEDICATION REGIMEN WITH FOLLOW-UP IN 3 MONTHS. AMOUNT OF MEDICATION DISPENSED INCREASED TO 80 PATIENT HAD REQUESTED AN INCREASE SINCE SHE RETURNED TO WORK. DISCUSSED WITH DR. KRISHNAMURTHY AND DISP AMOUNT WAS INCREASED TO 80 TABS. PATIENT HAS EXPRESSED UNDERSTANDING OF AND WAS IN AGREEMENT WITH TREATMENT PLAN. GIVEN TIME TO ASK QUESTIONS AND EXPRESS CONCERNS.. MYALGIA REFILL LIDOCAINE PATCH, 5 %, 2 PATCHS TO INTACT SKIN REMOVE AFTER 12 HOURS, EXTERNALLY, ON 12 HRS/OFF 12 HRS TO NECK AREA MDD=2, 30 DAY(S), 60, REFILLS 5, NOTES: WORKERS COMP OTHERS REFILL GABAPENTIN CAPSULE, 400 MG, DIRECTED, ORALLY FOR PAIN, THREE TIMES DAILY MDD3, 30 DAYS, 90, REFILLS 0 REFILL NORCO TABLET, 5-325 MG, 1 TABLET, ORALLY, EVERY 6 HRS PRN PAIN MDD=3 CHRONIC PAIN, 30 DAYS, 80, REFILLS 0 REFILL IBUPROFEN TABLET, 800 MG, 1 TABLET WITH FOOD OR MILK NEEDED, ORALLY, EVERY 6 HOURS NEEDED MDD3, 30 DAYS, 60, REFILLS 0 PROCEDURES PN WORKMANS' COMP OPINION IN YOUR OPINION, WAS THE INCIDENT THAT THE PATIENT DESCRIBED THE COMPETENT MEDICAL CAUSE OF THIS INJURY/ILLNESS? YES ARE THE PATIENT'S COMPLAINTS CONSISTENT WITH HIS/HER HISTORY OF THE INJURY/ILLNESS? YES IS THE PATIENT'S HISTORY OF THE INJURY/ILLNESS CONSISTENT WITH YOUR OBJECTIVE FINDING? YES WHAT IS THE PERCENTAGE OF TEMPORARY IMPAIRMENT? MODERATE TO MARKED = 66.7% IS THE PATIENT WORKING? YES DOCTOR ON SITE: MARJORIE PEARSON MD PROCEDURE CODES FA211 ESTABILISHED PATIENT [facility] CHARGE DISPOSITION & COMMUNICATION FOLLOW UP 3 MONTHS (REASON: WORKERS COMP CHRONIC PAIN ) ELECTRONICALLY SIGNED BY JIMENEZ THOMAS ON 05/26/2019 AT 03:31 PM EDT DISCLAIMER : THIS IS A VISIT SUMMARY EXTRACTED FROM THE [employer] CHART. IT IS NOT A COPY OF THE [employer] PROGRESS NOTE. FANG
== END ==
LOC: M PAIN 14:30
PROVIDERS: ATTEND Family Medicine
DX: M50.10 Cervical disc disorder with radiculopathy, unspecified cervical region (principal); G89.29 Other chronic pain; M79.18 Myalgia, other site; E03.9 Hypothyroidism, unspecified; Z86.59 Personal history of other mental and behavioral disorders; M79.7 Fibromyalgia; G25.81 Restless legs syndrome; Z86.69 Personal history of other diseases of the nervous system and sense organs; F17.210 Nicotine dependence, cigarettes, uncomplicated; Z79.891 Long term (current) use of opiate analgesic; Z79.899 Other long term (current) drug therapy

== ENCOUNTER → 2019-07-19 | Outpatient (CLI) | payer MEDICARE, MEDICAID ==
[2019-07-19 17:44] LABS: BASO # 0.1 10^3/uL (0.0-0.2); BASO % 1.2 % (0.0-1.0); EOS # 0.3 10^3/uL (0.0-0.5); EOS % 4.6 % (0.0-3.0); HEMATOCRIT 40.2 % (36.0-47.0); HEMOGLOBIN 13.2 g/dl (12.0-15.5); LYMPH # 2.6 10^3/uL (1.5-5.0); MEAN CORPUSCULAR HEMOGLOBIN 30.8 pg (27.0-33.0); MEAN CORPUSCULAR HGB CONC 32.8 g/dl (32.0-36.5); MEAN CORPUSCULAR VOLUME 93.7 fl (80.0-96.0); MONO # 0.6 10^3/uL (0.0-0.8); MONO % 9.3 % (0.0-5.0); NEUTROPHILS # 2.5 10^3/uL (1.5-8.5); NEUTROPHILS % 41.7 % (36.0-66.0); PLATELET COUNT, AUTOMATED 243 10^3/uL (150-450); RED BLOOD COUNT 4.29 10^6/uL (4.00-5.40); WHITE BLOOD COUNT 6.1 10^3/uL (4.0-10.0)
[2019-07-19 18:10] LABS: ALBUMIN 3.9 GM/DL (3.2-5.2); ALT/SGPT 30 U/L (12-78); BILIRUBIN,TOTAL 0.5 MG/DL (0.2-1.0); BLOOD UREA NITROGEN 13 MG/DL (7-18); CALCIUM LEVEL 9.3 MG/DL (8.8-10.2); CARBON DIOXIDE LEVEL 31 MEQ/L (21-32); CHLORIDE LEVEL 105 MEQ/L (98-107); CHOLESTEROL LEVEL 176 MG/DL (<200); CHOLESTEROL RISK RATIO 2.444 (<5); CREATININE FOR GFR 0.81 MG/DL (0.55-1.30); GLOMERULAR FILTRATION RATE > 60.0 (>45); GLUCOSE, FASTING 88 MG/DL (70-100); HDL CHOLESTEROL 72 MG/DL (>40); LDL CHOLESTEROL 82 MG/DL (<100); NON-HDL-C 104 MG/DL; POTASSIUM SERUM 4.8 MEQ/L (3.5-5.1); SODIUM LEVEL 141 MEQ/L (136-145); TOTAL PROTEIN 7.2 GM/DL (6.4-8.2); TRIGLYCERIDES LEVEL 112 MG/DL (<150)
[2019-07-19 18:46] LABS: HEMOGLOBIN A1c 5.9 %
== END ==
LOC: M WUC 08:42
PROVIDERS: ATTEND Nurse Practitioner Adult Health
DX: D64.9 Anemia, unspecified (principal); R94.5 Abnormal results of liver function studies; E55.9 Vitamin D deficiency, unspecified; E78.00 Pure hypercholesterolemia, unspecified; Z79.899 Other long term (current) drug therapy

== ENCOUNTER → 2019-09-16 | Outpatient (CLI) | payer OTHER ==
--- NOTE | 2019-09-18 02:25 | ECWPNPC ---
PATIENT NAME: RAYRAY SERRA : 1960 GENDER: FEMALE VISIT DATE: 09/16/2019 DISCHARGE DATE: 09/16/19 1510 VISIT LOCKED DATE TIME: PHYSICIAN: JUANA MCNEILL RESOURCE: JUANA MCNEILL REASON FOR APPOINTMENT 1. W/C NECK HISTORY OF PRESENT ILLNESS HISTORY OF PRESENT ILLNESS: PAIN THE PATIENT DESCRIBES THE PAIN... 59-YEAR-OLD FEMALE IN FOR WORKER'S COMP. CHRONIC PAIN FOLLOW-UP. SHE RATES HER PAIN CURRENTLY AT A 5 OUT OF 10 AND DESCRIBES IT ACHING, STABBING, SORE, AND TENDER. SHE FEELS HER MEDICATIONS ARE WORKING WELL AND DENIES MED SIDE EFFECTS AT THIS TIME. 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 THE PATIENT STATES THAT HER PAIN IS MAINLY LOCATED IN HER NECK, BUT IT ALSO RADIATES DOWN HER THORACIC AND DOWN BOTH ARMS. THE PATIENT SAYS SHE EXPERIENCES PAIN AND TINGLING SENSATIONS DOWN BOTH OF HER ARMS. FALL RISK SCREENING: SCREENING :NO FALLS REPORTED IN THE LAST YEAR CURRENT MEDICATIONS TAKING LEVOTHYROXINE SODIUM 88 MCG TABLET 1 TAB(S) ORALLY ONCE A DAY TAKING NEXIUM 40 MG CAPSULE DELAYED RELEASE 1 CAPSULE ORALLY NEEDED TAKING CETIRIZINE HCL 10 MG TABLET 1 TABLET ORALLY ONCE A DAY NEEDED TAKING SIMVASTATIN 20 MG TABLET 1 TABLET IN THE EVENING ORALLY ONCE A DAY TAKING ESCITALOPRAM OXALATE 10 MG TABLET 1 TABLET ORALLY ONCE A DAY TAKING TRAZODONE HCL 100 MG TABLET 1 1/2 TABLET AT BEDTIME ORALLY ONCE A DAY TAKING ROPINIROLE HCL 4 MG TABLET 1 TABLET 1 TO 3 HOURS BEFORE BEDTIME ORALLY ONCE A DAY TAKING LIDOCAINE 5 % PATCH 2 PATCHS TO INTACT SKIN REMOVE AFTER 12 HOURS EXTERNALLY ON 12 HRS/OFF 12 HRS TO NECK AREA MDD=2, NOTES: WORKERS COMP TAKING GABAPENTIN 400 MG CAPSULE DIRECTED ORALLY FOR PAIN THREE TIMES DAILY MDD3 TAKING IBUPROFEN 800 MG TABLET 1 TABLET WITH FOOD OR MILK NEEDED ORALLY EVERY 6 HOURS NEEDED MDD3 TAKING NORCO 5-325 MG TABLET 1 TABLET ORALLY EVERY 6 HRS PRN PAIN MDD=3 CHRONIC PAIN NOT-TAKING BACLOFEN 20 MG TABLET 1 TAB(S) ORALLY BID NOT-TAKING ESTRACE 0.1 MG/GM CREAM 0.5 GM VAGINAL EVERY NIGHT X 14 THEN TWICE A WEEK NOT-TAKING ELAVIL 25MG TABLET 1 TAB(S) ORAL ONCE A DAY NOT-TAKING AMITRIPTYLINE HCL 25 MG TABLET 3 TABLET ORALLY QHS NOT-TAKING LIDOCAINE VISCOUS 2 % SOLUTION 15 ML TO AFFECTED AREA NEEDED MOUTH/THROAT EVERY 3 HRS TO PAIN GUM AREAS NOT-TAKING VALIUM 5 MG TABLET 1 TABLET NEEDED ORALLY Q 8 HRS FOR SEVERE SPASM MDD=3S NOT-TAKING PROZAC 20 MG CAPSULE 1 CAPSULE IN THE MORNING ORALLY ONCE A DAY NOT-TAKING FLUOXETINE 40 MG CAPSULE 1 CAPSULE IN THE MORNING ORALLY ONCE A DAY MEDICATION LIST REVIEWED AND RECONCILED WITH THE PATIENT PAST MEDICAL HISTORY MYOFASCIAL PAIN SYNDROME IN HER BACK HYPOTHYROIDISM DEGENERATIVE DISC DISEASE THORACIC OUTLET SYNDROME PERIMENOPAUSAL, SYMPTOMATIC DEPRESSION FIBROMYALGIA VERTIGO RESTLESS LEG SYNDROME ALLERGIES N.K.D.A. SURGICAL HISTORY SECTION TUBAL LIGATION REMOVAL OF ONE RIB LEFT BREAST LUMPECTOMY 1996 D&C COLPOSCOPY FAMILY HISTORY FATHER: 81 YRS, COLON AND LIVER CANCER, DIAGNOSED AT 78. MOTHER: ALIVE 78 YRS, HYPERTENSION, HYPOTHYROIDISM SIBLINGS: HYPERTENSION, AAA, SISTER RI AGE 55 DEID ,BROTHER POSSIBLE DRUGS ABUSE AGE 57 2 BROTHER(S) , 1 SISTER(S) . 1 SON(S) , 1 DAUGHTER(S) . BROTHER AT 50, RUPTURED AAA. DAUGHTER WITH HEPATITIS C. DENIES FAMILY HX OF BREAST OR OVARIAN CANCER. NO OTHER COLON CANCER IN FAMILY. \\NFATHER OF LIVER CANCERMOTHER - STROKE. SOCIAL HISTORY GENERAL: TOBACCO USE ARE YOU A:FORMER SMOKER HOW LONG HAS IT BEEN SINCE YOU LAST SMOKED?1-5 YEARS OTHERS AT HOME: SPOUSE. EDUCATION LEVEL OF EDUCATION:NOT FINISHED HIGH SCHOOL 9TH GRADE DIET: HAS IMPROVED. INCREASED FRUIT. LANGUAGE LANGUAGES SPOKEN:ARGENTINE DOMESTIC VIOLENCE DENIES. RECREATIONAL DRUG USE DRUG USE?NO EXERCISE: NONE. 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 CLINIC PFS, CLERGY, PUBLIC HEALTH REFERRALS PFS REFERRAL NEEDED?NO CLERGY REFERRAL NEEDED?NO PUBLIC HEALTH REFERRAL NEEDED?NO HAS THE PATIENT BEEN EDUCATED REGARDING HIS/HER PLAN OF CARE?YES HAS THE PATIENT BEEN EDUCATED REGARDING PAIN, THE RISK FOR PAIN, THE IMPORTANCE OF EFFECTIVE PAIN MANAGEMENT, AND THE PAIN ASSESSMENT PROCESS?YES LATEX QUESTIONNAIRE LATEX ALLERGY : HAVE YOU EVER DEVELOPED ANY TYPE OF REACTION AFTER HANDLING LATEX PRODUCTS SUCH RUBBER GLOVES, CONDOMS, DIAPHRAGMS, BALLOONS, SOCKS, OR UNDERWEAR?YES HAS BEEN GETTING RASH FROM [employer], [place] FOR HER ELBOW - PLEASE INDICATE :OTHER (DOCUMENT IN NOTES) LATEX ALLERGY : HAVE YOU EVER DEVELOPED ANY TYPE OF REACTION DURING OR AFTER DENTAL APPOINTMENT, VAGINAL/RECTAL EXAMINATION, SURGICAL PROCEDURE, OR ANY OTHER EXPOSURE?NO LATEX RISK : HAVE YOU EVER HAD ANY DIFFICULTY BREATHING OR HIVES AFTER EATING OR HANDLING ANY FRUITS, OR VEGETABLES; SUCH KIWI, BANANAS, STONE FRUITS, OR CHESTNUTSNO LATEX RISK : DO YOU HAVE A PREVIOUS PERSONAL HISTORY OF MORE THAN NINE SURGERIES, SPINA BIFIDA, OR REPEATED CATHERIZATIONS? NO LATEX RISK : ARE YOU FREQUENTLY EXPOSED TO LATEX PRODUCTS IN YOUR OCCUPATION?NO DATE ASKED : 01/27/2019 CAFFEINE 2 CUPS DAILY. ADVANCE DIRECTIVE ADVANCE DIRECTIVE DISCUSSED WITH PATIENT:YES 09/16/2019 PT DOES NOT HAVE ANY ADVANCED DIRECTIVES AND DECLINED INFORMATION ON HCP AT THIS TIME. JS ANGLICAN [id number] MORAVIAN MARITAL STATUS: . 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 NOW THAT THERE WILL BE A CHANGE IN MGMT, SHE IS PREPARING TO RETURN.. REVIEWED WITH PATIENT. 12/08/18 0836 BVREVIEWED WITH PATIENT 09/16/2019 [id number] JS. HOSPITALIZATION/MAJOR DIAGNOSTIC PROCEDURE SURGERIES REVIEW OF SYSTEMS REVIEWED BY: PROVIDER: SAMIR BACA . CONSTITUTIONAL: ANY CHANGE IN YOUR MEDICAL CONDITION? NO . CHILLS NO . FEVER NO . INFECTION: DO YOU HAVE NEW INFECTIONS? NO . DO YOU HAVE HISTORY OF MRSA? NO . MUSCULOSKELETAL: ANY NEW PATTERNS OF PAIN OR NUMBNESS? NO . GASTROENTEROLOGY: ANY NEW CHANGE IN BOWEL CONTROL? NO . GENITOURINARY: ANY NEW CHANGE IN BLADDER CONTROL? NO . IS THERE A CHANCE YOU COULD BE ? NO . HEMATOLOGY/LYMPH: DO YOU TAKE ANY BLOOD THINNERS? (FOR EXAMPLE- COUMADIN, PLAVIX, AGGRENOX, PLATEL, PRADAXA, OR XARELTO) NO . WHEN WAS YOUR LAST DOSE? DATE: TIME: . NEUROLOGY: HAVE YOU FALLEN IN THE PAST 12 MONTHS? NO . ANY NEW EXTREMITY NUMBNESS OR WEAKNESS? NO . CARDIOLOGY: DO YOU HAVE A PACEMAKER OR DEFIBRILLATOR? NO . RESPIRATORY: HAVE YOU BEEN SICK IN THE PAST WEEK? NO . FEVER NO . FLU LIKE SYMPTOMS? NO . COUGH NO . INTEGUMENTARY: DO YOU HAVE ANY RASHES OR OPEN SORES? NO . ALLERGIC/IMMUNO: ARE YOU ALLERGIC TO IV DYE? NO . ANY NEW ALLERGIES? NO . PSYCHIATRIC: DO YOU HAVE THOUGHTS OF HURTING YOURSELF OR SOMEONE ELSE? NO . ARE YOU ABUSED, NEGLECTED, OR IN AN UNSAFE ENVIRONMENT? NO . ENDOCRINOLOGY: ARE YOU DIABETIC? NO . OTHER: DO YOU NEED ANY PRESCRIPTIONS? NO . IF YES, PLEASE LIST: ____ . ANY NEW PROBLEMS WITH YOUR MEDICATIONS? NO . WHEN DID YOU LAST EAT? ____ . WHEN DID YOU LAST DRINK? ____ . WHAT DID YOU LAST DRINK? ____ . NAME OF PERSON DRIVING YOU HOME? ____ . DO YOU HAVE ANY OTHER QUESTIONS OR CONCERNS NO . VITAL SIGNS WT 165 LBS, HT 62 1/2, BMI 29.69 INDEX, BP 112/61 MM HG, HR 73 /MIN, RR 16 /MIN, TEMP 98.8 F, OXYGEN SAT % 98%, SAFE IN ENV? (Y/N) YES, REVIEWED BY: HODAN. EXAMINATION GENERAL EXAMINATION: GENERALNO ACUTE DISTRESS, WELL NOURISHED AND HYDRATED. PSYCHAPPROPRIATE MOOD AND AFFECT . LUNGS:CLEAR TO AUSCULTATION BILATERALLY, NO WHEEZES, RHONCHI, RALES. HEART:NO MURMURS, REGULAR RATE AND RHYTHM. ASSESSMENTS CERVICAL DISC DISORDER WITH RADICULOPATHY OF CERVICAL REGION - M50.10 (PRIMARY) TREATMENT CERVICAL DISC DISORDER WITH RADICULOPATHY OF CERVICAL REGION REFILL NORCO TABLET, 5-325 MG, 1 TABLET, ORALLY, EVERY 6 HRS PRN PAIN MDD=3 CHRONIC PAIN CATEGORY D CHRONIC PAIN 90 DAY SUPPLY, 90 DAYS, 240, REFILLS 0 CLINICAL NOTES: 50-YEAR-OLD FEMALE IN FOR WORKER'S COMP. CHRONIC PAIN FOLLOW-UP. GIVEN PRESENTING SYMPTOMS AND RESULTS OF PHYSICAL EXAMINATION RECOMMENDED CONTINUATION OF CURRENT MEDICATION REGIMEN WITH FOLLOW-UP IN 3 MONTHS. PATIENT HAS EXPRESSED UNDERSTANDING OF AND WAS IN AGREEMENT WITH TREATMENT PLAN. GIVEN TIME TO ASK QUESTIONS AND EXPRESS CONCERNS., ISTOP REGISTRY REVIEWED AND DEMONSTRATES COMPLLIANCE. (REF # [id number] ) BRINGS IN MEDICATIONS WHICH IS APPROPRIATE FOR WHAT WAS DISPENSED. RECENT URINE TOXICOLOGY REVIEWED. NO UNAUTHORIZED MEDICATIONS. NO ILLICIT SUBSTANCES AND PRESCRIBED MEDICATIONS WERE PRESENT. PROCEDURE CODES FA211 ESTABILISHED PATIENT [facility] FACILITY CHARGE DISPOSITION & COMMUNICATION FOLLOW UP 3 MONTHS (REASON: NECK PAIN, WORKER'S COMP.) ELECTRONICALLY SIGNED BY JIMENEZ THOMAS ON 09/17/2019 AT 11:05 AM EST DISCLAIMER : THIS IS A VISIT SUMMARY EXTRACTED FROM THE [employer] CHART. IT IS NOT A COPY OF THE [employer] PROGRESS NOTE. FANG
== END ==
LOC: M PAIN 14:30
PROVIDERS: ATTEND Family Medicine
DX: M50.10 Cervical disc disorder with radiculopathy, unspecified cervical region (principal)

== ENCOUNTER → 2019-12-17 | Outpatient (CLI) | payer OTHER ==
--- NOTE | 2019-12-22 03:20 | ECWPNPC ---
PATIENT NAME: RAYRAY SERRA : 1960 GENDER: FEMALE VISIT DATE: 12/17/2019 DISCHARGE DATE: 12/17/19 1129 VISIT LOCKED DATE TIME: PHYSICIAN: JUANA MCNEILL RESOURCE: JUANA MCNEILL REASON FOR APPOINTMENT 1. 3 MONTHS, W/C- [phone]- DOES NOT HAVE ZOOM HISTORY OF PRESENT ILLNESS HISTORY OF PRESENT ILLNESS: PAIN THE PATIENT DESCRIBES THE PAIN... PERMISSION REQUESTED AND RECEIVED FROM PATIENT TO PERFORM TELEHEALTH VISIT. 59-YEAR-OLD FEMALE IN FOR WORKER'S COMP. CHRONIC PAIN FOLLOW-UP. SHE RATES HER PAIN CURRENTLY AT A 5 OUT OF 10 AND DESCRIBES IT ACHING, THROBBING, AND SHOOTING. SHE FEELS THE MEDICATIONS ARE WORKING WELL AND DENIES MED SIDE EFFECTS AT THIS TIME.THE PATIENT WAS HURT IN A WORK RELATED INJURY ON 08/18/1993 WHILE WORKING FOR [employer] WHEN SHE WAS LIFTING HEAVY BOXES THAT CAUSED HER NECK INJURY. THE PATIENT STATES THAT HER PAIN IS MAINLY LOCATED IN HER NECK, BUT IT ALSO RADIATES DOWN HER THORACIC AND DOWN BOTH ARMS. THE PATIENT SAYS SHE EXPERIENCES PAIN AND TINGLING SENSATIONS DOWN BOTH OF HER ARMS. FALL RISK SCREENING: SCREENING :NO FALLS REPORTED IN THE LAST YEAR CURRENT MEDICATIONS TAKING LEVOTHYROXINE SODIUM 88 MCG TABLET 1 TAB(S) ORALLY ONCE A DAY TAKING NEXIUM 40 MG CAPSULE DELAYED RELEASE 1 CAPSULE ORALLY NEEDED TAKING CETIRIZINE HCL 10 MG TABLET 1 TABLET ORALLY ONCE A DAY NEEDED TAKING SIMVASTATIN 20 MG TABLET 1 TABLET IN THE EVENING ORALLY ONCE A DAY TAKING ESCITALOPRAM OXALATE 10 MG TABLET 1 TABLET ORALLY ONCE A DAY TAKING TRAZODONE HCL 100 MG TABLET 1 1/2 TABLET AT BEDTIME ORALLY ONCE A DAY TAKING ROPINIROLE HCL 4 MG TABLET 1 TABLET 1 TO 3 HOURS BEFORE BEDTIME ORALLY ONCE A DAY TAKING LIDOCAINE 5 % PATCH 2 PATCHS TO INTACT SKIN REMOVE AFTER 12 HOURS EXTERNALLY ON 12 HRS/OFF 12 HRS TO NECK AREA MDD=2, NOTES: WORKERS COMP TAKING NORCO 5-325 MG TABLET 1 TABLET ORALLY EVERY 6 HRS PRN PAIN MDD=3 CHRONIC PAIN CATEGORY D CHRONIC PAIN 90 DAY SUPPLY TAKING IBUPROFEN 800 MG TABLET 1 TABLET WITH FOOD OR MILK NEEDED ORALLY EVERY 6 HOURS NEEDED MDD3 TAKING GABAPENTIN 400 MG CAPSULE DIRECTED ORALLY FOR PAIN THREE TIMES DAILY MDD3 NOT-TAKING BACLOFEN 20 MG TABLET 1 TAB(S) ORALLY BID NOT-TAKING ESTRACE 0.1 MG/GM CREAM 0.5 GM VAGINAL EVERY NIGHT X 14 THEN TWICE A WEEK NOT-TAKING ELAVIL 25MG TABLET 1 TAB(S) ORAL ONCE A DAY NOT-TAKING AMITRIPTYLINE HCL 25 MG TABLET 3 TABLET ORALLY QHS NOT-TAKING LIDOCAINE VISCOUS 2 % SOLUTION 15 ML TO AFFECTED AREA NEEDED MOUTH/THROAT EVERY 3 HRS TO PAIN GUM AREAS NOT-TAKING VALIUM 5 MG TABLET 1 TABLET NEEDED ORALLY Q 8 HRS FOR SEVERE SPASM MDD=3S NOT-TAKING PROZAC 20 MG CAPSULE 1 CAPSULE IN THE MORNING ORALLY ONCE A DAY NOT-TAKING FLUOXETINE 40 MG CAPSULE 1 CAPSULE IN THE MORNING ORALLY ONCE A DAY MEDICATION LIST REVIEWED AND RECONCILED WITH THE PATIENT PAST MEDICAL HISTORY MYOFASCIAL PAIN SYNDROME IN HER BACK HYPOTHYROIDISM DEGENERATIVE DISC DISEASE THORACIC OUTLET SYNDROME PERIMENOPAUSAL, SYMPTOMATIC DEPRESSION FIBROMYALGIA VERTIGO RESTLESS LEG SYNDROME ALLERGIES N.K.D.A. SURGICAL HISTORY SECTION TUBAL LIGATION REMOVAL OF ONE RIB LEFT BREAST LUMPECTOMY 1996 D&C COLPOSCOPY FAMILY HISTORY FATHER: 81 YRS, COLON AND LIVER CANCER, DIAGNOSED AT 78. MOTHER: ALIVE 84 YRS, HYPERTENSION, HYPOTHYROIDISM SIBLINGS: HYPERTENSION, AAA, SISTER [place] AGE 55 DEID ,BROTHER POSSIBLE DRUGS ABUSE AGE 57 2 BROTHER(S) , 1 SISTER(S) . 1 SON(S) , 1 DAUGHTER(S) . BROTHER AT 50, RUPTURED AAA. DAUGHTER WITH HEPATITIS C. DENIES FAMILY HX OF BREAST OR OVARIAN CANCER. NO OTHER COLON CANCER IN FAMILY. \\NFATHER OF LIVER CANCERMOTHER - STROKE. SOCIAL HISTORY GENERAL: TOBACCO USE ARE YOU A:FORMER SMOKER HOW LONG HAS IT BEEN SINCE YOU LAST SMOKED?1-5 YEARS LATEX QUESTIONNAIRE LATEX ALLERGY : HAVE YOU EVER DEVELOPED ANY TYPE OF REACTION AFTER HANDLING LATEX PRODUCTS SUCH RUBBER GLOVES, CONDOMS, DIAPHRAGMS, BALLOONS, SOCKS, OR UNDERWEAR?YES HAS BEEN GETTING RASH FROM [employer] FOR HER ELBOW LATEX ALLERGY : HAVE YOU EVER DEVELOPED ANY TYPE OF REACTION DURING OR AFTER DENTAL APPOINTMENT, VAGINAL/RECTAL EXAMINATION, SURGICAL PROCEDURE, OR ANY OTHER EXPOSURE?NO - PLEASE INDICATE :OTHER (DOCUMENT IN NOTES) DATE ASKED : 01/27/2019 LATEX RISK : HAVE YOU EVER HAD ANY DIFFICULTY BREATHING OR HIVES AFTER EATING OR HANDLING ANY FRUITS, OR VEGETABLES; SUCH KIWI, BANANAS, STONE FRUITS, OR CHESTNUTSNO LATEX RISK : DO YOU HAVE A PREVIOUS PERSONAL HISTORY OF MORE THAN NINE SURGERIES, SPINA BIFIDA, OR REPEATED CATHERIZATIONS? NO LATEX RISK : ARE YOU FREQUENTLY EXPOSED TO LATEX PRODUCTS IN YOUR OCCUPATION?NO ALCOHOL SCREENING DID YOU HAVE A DRINK CONTAINING ALCOHOL IN THE PAST YEAR?NO POINTS0 INTERPRETATIONNEGATIVE RECREATIONAL DRUG USE DRUG USE?NO CAFFEINE 2 CUPS DAILY. CHEONDOISM [id number] BAHAI LANGUAGE LANGUAGES SPOKEN:SERBIAN EDUCATION LEVEL OF EDUCATION:NOT FINISHED HIGH SCHOOL 9TH GRADE LEARNING BARRIERS / SPECIAL NEEDS CHANGE FROM LAST VISIT?NO BARRIERS TO LEARNING?YES STATES SHE IS ILLITERATE HEARING IMPAIRED?NO VISION IMPAIRED?YES COGNITIVELY IMPAIRED?NO :CORRECTIVE LENSES READINESS TO LEARN?YES LEARNING PREFERENCES?YES :TAPES/VIDEOS, DEMONSTRATION/VERBAL INSTRUCTION LEARNING CAPABILITIES PRESENT?YES EMOTIONAL BARRIERS?NO SPECIAL DEVICES?YES :CANE, WALKER OCC. 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 NOW THAT THERE WILL BE A CHANGE IN MGMT, SHE IS PREPARING TO RETURN.. DIET: HAS IMPROVED. INCREASED FRUIT. EXERCISE: NONE. MARITAL STATUS: . OTHERS AT HOME: SPOUSE. NEW PATIENT PAIN DIARY PATIENT DESCRIBES PAIN :ACHING, HAVE IT ALL THE TIME, TENDER, THROBBING, SORE FROM 0-10, WHAT LEVEL IS YOUR PAIN TODAY?5 12/17/19 PRECIPITATING FACTORS LIFTING, ALL ACTIVITIES ALLEVIATING FACTORS REST, MEDICATIONS, MASSAGE PAIN CLINIC PFS, CLERGY, PUBLIC HEALTH REFERRALS PFS REFERRAL NEEDED?NO CLERGY REFERRAL NEEDED?NO PUBLIC HEALTH REFERRAL NEEDED?NO HAS THE PATIENT BEEN EDUCATED REGARDING HIS/HER PLAN OF CARE?YES HAS THE PATIENT BEEN EDUCATED REGARDING PAIN, THE RISK FOR PAIN, THE IMPORTANCE OF EFFECTIVE PAIN MANAGEMENT, AND THE PAIN ASSESSMENT PROCESS?YES ADVANCE DIRECTIVE ADVANCE DIRECTIVE DISCUSSED WITH PATIENT:YES 09/16/2019 PT DOES NOT HAVE ANY ADVANCED DIRECTIVES AND DECLINED INFORMATION ON HCP AT THIS TIME. JS REVIEWED WITH PATIENT. 12/08/18 5066 BVREVIEWED WITH PATIENT 09/16/2019 2443 JS. HOSPITALIZATION/MAJOR DIAGNOSTIC PROCEDURE SURGERIES REVIEW OF SYSTEMS REVIEWED BY: PROVIDER: SAMIR BACA . CONSTITUTIONAL: ANY CHANGE IN YOUR MEDICAL CONDITION? NO . CHILLS NO . FEVER NO . INFECTION: DO YOU HAVE NEW INFECTIONS? NO . DO YOU HAVE HISTORY OF MRSA? NO . MUSCULOSKELETAL: ANY NEW PATTERNS OF PAIN OR NUMBNESS? NO . GASTROENTEROLOGY: ANY NEW CHANGE IN BOWEL CONTROL? NO . GENITOURINARY: ANY NEW CHANGE IN BLADDER CONTROL? NO . IS THERE A CHANCE YOU COULD BE ? NO . HEMATOLOGY/LYMPH: DO YOU TAKE ANY BLOOD THINNERS? (FOR EXAMPLE- COUMADIN, PLAVIX, AGGRENOX, PLATEL, PRADAXA, OR XARELTO) NO . WHEN WAS YOUR LAST DOSE? DATE: TIME: . NEUROLOGY: HAVE YOU FALLEN IN THE PAST 12 MONTHS? NO . ANY NEW EXTREMITY NUMBNESS OR WEAKNESS? NO . CARDIOLOGY: DO YOU HAVE A PACEMAKER OR DEFIBRILLATOR? NO . RESPIRATORY: HAVE YOU BEEN SICK IN THE PAST WEEK? NO . FEVER NO . FLU LIKE SYMPTOMS? NO . COUGH NO . INTEGUMENTARY: DO YOU HAVE ANY RASHES OR OPEN SORES? YES - RASH LEG . ALLERGIC/IMMUNO: ARE YOU ALLERGIC TO IV DYE? NO . ANY NEW ALLERGIES? NO . PSYCHIATRIC: DO YOU HAVE THOUGHTS OF HURTING YOURSELF OR SOMEONE ELSE? NO . ARE YOU ABUSED, NEGLECTED, OR IN AN UNSAFE ENVIRONMENT? NO . ENDOCRINOLOGY: ARE YOU DIABETIC? NO . OTHER: DO YOU NEED ANY PRESCRIPTIONS? NO . IF YES, PLEASE LIST: ____ . ANY NEW PROBLEMS WITH YOUR MEDICATIONS? NO . WHEN DID YOU LAST EAT? ____ . WHEN DID YOU LAST DRINK? ____ . WHAT DID YOU LAST DRINK? ____ . NAME OF PERSON DRIVING YOU HOME? ____ . DO YOU HAVE ANY OTHER QUESTIONS OR CONCERNS NO . EXAMINATION GENERAL EXAMINATION: PSYCH ORIENTED X 3 , APPROPRIATE MOOD AND AFFECT . ASSESSMENTS CERVICAL POST-LAMINECTOMY SYNDROME - M96.1 (PRIMARY) TREATMENT CERVICAL POST-LAMINECTOMY SYNDROME CLINICAL NOTES: 59-YEAR-OLD FEMALE IN FOR WORKER'S COMP. CHRONIC PAIN FOLLOW-UP. GIVEN PRESENTING SYMPTOMS RECOMMENDED CONTINUATION OF CURRENT MEDICATION REGIMEN WITH FOLLOW-UP IN 3 MONTHS. PATIENT HAS EXPRESSED UNDERSTANDING OF AND WAS IN AGREEMENT WITH TREATMENT PLAN. GIVEN TIME TO ASK QUESTIONS AND EXPRESS CONCERNS., ISTOP REGISTRY REVIEWED AND DEMONSTRATES COMPLLIANCE. (REF # [id number] ) BRINGS IN MEDICATIONS WHICH IS APPROPRIATE FOR WHAT WAS DISPENSED. RECENT URINE TOXICOLOGY REVIEWED. NO UNAUTHORIZED MEDICATIONS. NO ILLICIT SUBSTANCES AND PRESCRIBED MEDICATIONS WERE PRESENT. VISIT TO BE BILLED BASED ON TIME SPENT WITH PATIENT. TIME SPENT WITH PATIENT 11 MINUTES. DISPOSITION & COMMUNICATION FOLLOW UP 3 MONTHS (REASON: NECK PAIN, WORKER'S COMP.) ELECTRONICALLY SIGNED BY JIMENEZ THOMAS ON 12/21/2019 AT 08:23 AM EDT DISCLAIMER : THIS IS A VISIT SUMMARY EXTRACTED FROM THE [employer] CHART. IT IS NOT A COPY OF THE [facility]ESS [facility]. FANG
== END ==
LOC: M PAIN 10:15
PROVIDERS: ATTEND Family Medicine
DX: M96.1 Postlaminectomy syndrome, not elsewhere classified (principal); E03.9 Hypothyroidism, unspecified; Z86.59 Personal history of other mental and behavioral disorders; M79.7 Fibromyalgia; G25.81 Restless legs syndrome; Z87.891 Personal history of nicotine dependence; Z79.891 Long term (current) use of opiate analgesic; Z79.899 Other long term (current) drug therapy

== ENCOUNTER → 2020-01-26 | Outpatient (CLI) | payer MEDICARE, MEDICAID ==
[2020-01-26 08:18] LABS: BASO # 0.1 10^3/uL (0.0-0.2); BASO % 1.2 % (0.0-1.0); EOS # 0.3 10^3/uL (0.0-0.5); EOS % 5.5 % (0.0-3.0); HEMATOCRIT 37.6 % (36.0-47.0); HEMOGLOBIN 12.8 g/dl (12.0-15.5); LYMPH # 2.7 10^3/uL (1.5-5.0); LYMPH % 48.1 % (24.0-44.0); MEAN CORPUSCULAR HEMOGLOBIN 30.4 pg (27.0-33.0); MEAN CORPUSCULAR VOLUME 89.3 fl (80.0-96.0); MONO # 0.6 10^3/uL (0.0-0.8); MONO % 10.3 % (0.0-5.0); NEUTROPHILS % 34.7 % (36.0-66.0); PLATELET COUNT, AUTOMATED 231 10^3/uL (150-450); RED BLOOD COUNT 4.21 10^6/uL (4.00-5.40); WHITE BLOOD COUNT 5.6 10^3/uL (4.0-10.0)
[2020-01-26 08:34] LABS: HEMOGLOBIN A1c 6.2 %
[2020-01-26 08:58] LABS: ALBUMIN 3.7 GM/DL (3.2-5.2); ALT/SGPT 28 U/L (12-78); BILIRUBIN,TOTAL 0.5 MG/DL (0.2-1.0); BLOOD UREA NITROGEN 15 MG/DL (7-18); CALCIUM LEVEL 8.9 MG/DL (8.8-10.2); CARBON DIOXIDE LEVEL 27 MEQ/L (21-32); CHLORIDE LEVEL 108 MEQ/L (98-107); CHOLESTEROL LEVEL 169 MG/DL (<200); CHOLESTEROL RISK RATIO 2.414 (<5); CREATININE FOR GFR 0.79 MG/DL (0.55-1.30); GLOMERULAR FILTRATION RATE > 60.0 (>45); GLUCOSE, FASTING 99 MG/DL (70-100); HDL CHOLESTEROL 70 MG/DL (>40); LDL CHOLESTEROL 78 MG/DL (<100); MAGNESIUM LEVEL 2.1 MG/DL (1.8-2.4); NON-HDL-C 99 MG/DL; POTASSIUM SERUM 4.1 MEQ/L (3.5-5.1); SODIUM LEVEL 142 MEQ/L (136-145); THYROID STIMULATING HORMONE 0.685 uIU/ML (0.358-3.740); TOTAL PROTEIN 6.8 GM/DL (6.4-8.2); TRIGLYCERIDES LEVEL 106 MG/DL (<150)
== END ==
LOC: M LAB 07:20
PROVIDERS: ATTEND Nurse Practitioner Adult Health
DX: Z51.81 Encounter for therapeutic drug level monitoring (principal); Z79.899 Other long term (current) drug therapy; D64.9 Anemia, unspecified; F41.9 Anxiety disorder, unspecified; R94.5 Abnormal results of liver function studies; E78.00 Pure hypercholesterolemia, unspecified; K21.9 Gastro-esophageal reflux disease without esophagitis; E78.5 Hyperlipidemia, unspecified

== ENCOUNTER → 2020-03-16 | Outpatient (CLI) | payer OTHER ==
[~2020-03-16] MED LIST changes: +NORC1TAB7 PO
--- NOTE | 2020-03-22 04:00 | ECWPNPC ---
PATIENT NAME: RAYRAY SERRA : 1960 GENDER: FEMALE VISIT DATE: 03/16/2020 DISCHARGE DATE: 03/16/20 1006 VISIT LOCKED DATE TIME: PHYSICIAN: JUANA MCNEILL RESOURCE: JUANA MCNEILL REASON FOR APPOINTMENT 1. W/C NECK PAIN PAT DONE HISTORY OF PRESENT ILLNESS GENERAL: PERMISSION REQUESTED AND RECEIVED FROM PATIENT TO PERFORM TELEPHONE VISIT.- 59-YEAR-OLD FEMALE IN FOR WORKER'S COMP. CHRONIC PAIN FOLLOW-UP. SHE RATES HER PAIN CURRENTLY AT A 5 OUT OF 10 AND DESCRIBES IT SORE, ACHY, THROBBING, TENDER, AND CONSTANT. PATIENT FEELS HER MEDICATIONS ARE HELPFUL AND DENIES MED SIDE EFFECTS AT THIS TIME. 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 THE PATIENT STATES THAT HER PAIN IS MAINLY LOCATED IN HER NECK, BUT IT ALSO RADIATES DOWN HER THORACIC AND DOWN BOTH ARMS. THE PATIENT SAYS SHE EXPERIENCES PAIN AND TINGLING SENSATIONS DOWN BOTH OF HER ARMS. FALL RISK SCREENING: SCREENING :NO FALLS REPORTED IN THE LAST YEAR PAIN SCREENING: PATIENT HAS A COMPLAINT OF ACUTE OR CHRONIC PAIN :YES LOCATION OF PAIN:NECK, UPPER BACK INTENSITY OF PAIN (SCALE OF 1 TO 10):5 WHAT DOES YOUR PAIN FEEL LIKE:ACHING, CONTINOUS, TENDER, SORE DURATION:CONTINOUS, CONSTANT, ALL DAY PAIN IS INCREASED BY:ACTIVITIES, PROLONGED STANDING PAIN IS DECREASED BY:USE OF PAIN MEDICATIONS PAIN HAS INTERFERED WITH THE FOLLOWING:MOOD, HOUSEWORK, RELATIONSHIP WITH OTHERS, ENJOYMENT OF LIFE PLAN/GOALS/TREATMENT/INTERVENTION/FOLLOW UP:SEE PLAN NURSING NOTE: -. PAIN CENTER INTAKE QUESTIONS: DO YOU HAVE A HISTORY OF MRSA? :NO DO YOU TAKE A BLOOD THINNERS? :NO DO YOU HAVE ANY BLEEDING DISORDERS? :NO ANY NEW NUMBNESS OR WEAKNESS IN YOUR LEGS OR ARMS? :NO ANY PACEMAKER,DEFIBRILLATOR, OR DORSAL COLUMN STIMULATOR? :NO DO YOU HAVE ANY RASHES OR OPEN SORES? :NO ARE YOU ALLERGIC TO IV DYE? :NO ARE YOU DIABETIC? :NO ANY NEW PROBLEMS WITH YOUR MEDICATIONS? :NO HAVE YOU RECEIVED A VACCINE IN THE PAST 30 DAYS? :NO DO YOU PLAN TO RECEIVE A VACCINE IN THE NEXT 21 DAYS? :NO DO YOU NEED ANY PRESCRIPTION? :YES LIDOCAINE PATCH DO YOU TAKE ANY IMMUNOSUPPRESSIVE MEDICATIONS? :NO IS THERE A CHANCE YOU COULD BE ? :NO ARE YOU BREAST FEEDING? :NO CURRENT MEDICATIONS TAKING LEVOTHYROXINE SODIUM 88 MCG TABLET 1 TAB(S) ORALLY ONCE A DAY TAKING NEXIUM 40 MG CAPSULE DELAYED RELEASE 1 CAPSULE ORALLY NEEDED TAKING CETIRIZINE HCL 10 MG TABLET 1 TABLET ORALLY ONCE A DAY NEEDED TAKING SIMVASTATIN 20 MG TABLET 1 TABLET IN THE EVENING ORALLY ONCE A DAY TAKING ESCITALOPRAM OXALATE 10 MG TABLET 1 TABLET ORALLY ONCE A DAY TAKING TRAZODONE HCL 100 MG TABLET 1 1/2 TABLET AT BEDTIME ORALLY ONCE A DAY TAKING ROPINIROLE HCL 4 MG TABLET 1 TABLET 1 TO 3 HOURS BEFORE BEDTIME ORALLY ONCE A DAY TAKING NORCO 5-325 MG TABLET 1 TABLET ORALLY EVERY 6 HRS PRN PAIN MDD=3 CHRONIC PAIN CATEGORY D CHRONIC PAIN 90 DAY SUPPLY TAKING IBUPROFEN 800 MG TABLET 1 TABLET WITH FOOD OR MILK NEEDED ORALLY EVERY 6 HOURS NEEDED MDD3 TAKING GABAPENTIN 400 MG CAPSULE DIRECTED ORALLY FOR PAIN THREE TIMES DAILY MDD3 TAKING LIDOCAINE 5 % PATCH 2 PATCHS TO INTACT SKIN REMOVE AFTER 12 HOURS EXTERNALLY ON 12 HRS/OFF 12 HRS TO NECK AREA MDD=2, NOTES: WORKERS COMP NOT-TAKING BACLOFEN 20 MG TABLET 1 TAB(S) ORALLY BID NOT-TAKING ESTRACE 0.1 MG/GM CREAM 0.5 GM VAGINAL EVERY NIGHT X 14 THEN TWICE A WEEK NOT-TAKING ELAVIL 25MG TABLET 1 TAB(S) ORAL ONCE A DAY NOT-TAKING AMITRIPTYLINE HCL 25 MG TABLET 3 TABLET ORALLY QHS NOT-TAKING LIDOCAINE VISCOUS 2 % SOLUTION 15 ML TO AFFECTED AREA NEEDED MOUTH/THROAT EVERY 3 HRS TO PAIN GUM AREAS NOT-TAKING VALIUM 5 MG TABLET 1 TABLET NEEDED ORALLY Q 8 HRS FOR SEVERE SPASM MDD=3S NOT-TAKING PROZAC 20 MG CAPSULE 1 CAPSULE IN THE MORNING ORALLY ONCE A DAY NOT-TAKING FLUOXETINE 40 MG CAPSULE 1 CAPSULE IN THE MORNING ORALLY ONCE A DAY MEDICATION LIST REVIEWED AND RECONCILED WITH THE PATIENT PAST MEDICAL HISTORY MYOFASCIAL PAIN SYNDROME IN HER BACK HYPOTHYROIDISM DEGENERATIVE DISC DISEASE THORACIC OUTLET SYNDROME PERIMENOPAUSAL, SYMPTOMATIC DEPRESSION FIBROMYALGIA VERTIGO RESTLESS LEG SYNDROME ALLERGIES N.K.D.A. SURGICAL HISTORY SECTION TUBAL LIGATION REMOVAL OF ONE RIB LEFT BREAST LUMPECTOMY 1996 D&C COLPOSCOPY FAMILY HISTORY FATHER: 81 YRS, COLON AND LIVER CANCER, DIAGNOSED AT 78. MOTHER: ALIVE 84 YRS, HYPERTENSION, HYPOTHYROIDISM SIBLINGS: HYPERTENSION, AAA, SISTER [place] AGE 55 DEID ,BROTHER POSSIBLE DRUGS ABUSE AGE 57 2 BROTHER(S) , 1 SISTER(S) . 1 SON(S) , 1 DAUGHTER(S) . BROTHER AT 50, RUPTURED AAA. DAUGHTER WITH HEPATITIS C. DENIES FAMILY HX OF BREAST OR OVARIAN CANCER. NO OTHER COLON CANCER IN FAMILY. \\NFATHER OF LIVER CANCERMOTHER - STROKE. SOCIAL HISTORY GENERAL: TOBACCO USE ARE YOU A:FORMER SMOKER HOW LONG HAS IT BEEN SINCE YOU LAST SMOKED?1-5 YEARS LATEX QUESTIONNAIRE LATEX ALLERGY : HAVE YOU EVER DEVELOPED ANY TYPE OF REACTION AFTER HANDLING LATEX PRODUCTS SUCH RUBBER GLOVES, CONDOMS, DIAPHRAGMS, BALLOONS, SOCKS, OR UNDERWEAR?YES HAS BEEN GETTING RASH FROM [place], [place] FOR HER ELBOW - PLEASE INDICATE :OTHER (DOCUMENT IN NOTES) LATEX ALLERGY : HAVE YOU EVER DEVELOPED ANY TYPE OF REACTION DURING OR AFTER DENTAL APPOINTMENT, VAGINAL/RECTAL EXAMINATION, SURGICAL PROCEDURE, OR ANY OTHER EXPOSURE?NO LATEX RISK : HAVE YOU EVER HAD ANY DIFFICULTY BREATHING OR HIVES AFTER EATING OR HANDLING ANY FRUITS, OR VEGETABLES; SUCH KIWI, BANANAS, STONE FRUITS, OR CHESTNUTSNO LATEX RISK : DO YOU HAVE A PREVIOUS PERSONAL HISTORY OF MORE THAN NINE SURGERIES, SPINA BIFIDA, OR REPEATED CATHERIZATIONS? NO LATEX RISK : ARE YOU FREQUENTLY EXPOSED TO LATEX PRODUCTS IN YOUR OCCUPATION?NO DATE ASKED : 03/15/2020 ALCOHOL SCREENING DID YOU HAVE A DRINK CONTAINING ALCOHOL IN THE PAST YEAR?NO POINTS0 INTERPRETATIONNEGATIVE RECREATIONAL DRUG USE DRUG USE?NO CAFFEINE 2 CUPS DAILY. ROMAN CATHOLIC [id number] EVANGELICAL LANGUAGE LANGUAGES SPOKEN:PORTUGUESE EDUCATION LEVEL OF EDUCATION:NOT FINISHED HIGH SCHOOL 9TH GRADE LEARNING BARRIERS / SPECIAL NEEDS CHANGE FROM LAST VISIT?NO BARRIERS TO LEARNING?YES STATES SHE IS ILLITERATE HEARING IMPAIRED?NO VISION IMPAIRED?YES COGNITIVELY IMPAIRED?NO :CORRECTIVE LENSES READINESS TO LEARN?YES LEARNING PREFERENCES?YES :TAPES/VIDEOS, DEMONSTRATION/VERBAL INSTRUCTION LEARNING CAPABILITIES PRESENT?YES EMOTIONAL BARRIERS?NO SPECIAL DEVICES?YES :CANE, WALKER OCC. 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 NOW THAT THERE WILL BE A CHANGE IN MGMT, SHE IS PREPARING TO RETURN.. DIET: HAS IMPROVED. INCREASED FRUIT. EXERCISE: NONE. MARITAL STATUS: . OTHERS AT HOME: SPOUSE. NEW PATIENT PAIN DIARY PATIENT DESCRIBES PAIN :ACHING, HAVE IT ALL THE TIME, TENDER, THROBBING, SORE FROM 0-10, WHAT LEVEL IS YOUR PAIN TODAY?5 12/17/19 PRECIPITATING FACTORS LIFTING, ALL ACTIVITIES ALLEVIATING FACTORS REST, MEDICATIONS, MASSAGE PAIN CLINIC PFS, CLERGY, PUBLIC HEALTH REFERRALS PFS REFERRAL NEEDED?NO CLERGY REFERRAL NEEDED?NO PUBLIC HEALTH REFERRAL NEEDED?NO HAS THE PATIENT BEEN EDUCATED REGARDING HIS/HER PLAN OF CARE?YES HAS THE PATIENT BEEN EDUCATED REGARDING PAIN, THE RISK FOR PAIN, THE IMPORTANCE OF EFFECTIVE PAIN MANAGEMENT, AND THE PAIN ASSESSMENT PROCESS?YES ADVANCE DIRECTIVE ADVANCE DIRECTIVE DISCUSSED WITH PATIENT:YES PT DOES NOT HAVE ANY ADVANCED DIRECTIVES AND DECLINED INFORMATION ON HCP AT THIS TIME. JS HOSPITALIZATION/MAJOR DIAGNOSTIC PROCEDURE SURGERIES REVIEW OF SYSTEMS CONSTITUTIONAL: ANY RECENT FEVER NO . CHILLS NO . WEIGHT CHANGE OF UNKNOWN REASONS NO . GASTROENTEROLOGY: NEW UNEXPLAINABLE CHANGES IN BOWEL CONTROL NO . CONSTIPATION NO . GENITOURINARY: ANY NEW CHANGE IN BLADDER CONTROL? NO . NEUROLOGY: NEW ONSET DIZZINESS OR NEUROLOGICAL CHANGES NOT MENTIONED NO . NEW NUMBNESS OR PAIN PATTERNS NOT MENTIONED AND PERTINENT TO TODAY'S VISIT NO . CARDIOLOGY: NEW CHEST PRESSURE NO . NEW CHEST PAIN NO . RESPIRATORY: UNEXPLAINABLE COUGH NO . NEW SHORTNESS OF BREATH NO . EXAMINATION GENERAL EXAMINATION: PSYCHAPPROPRIATE MOOD AND AFFECT , ORIENTED X 3. ASSESSMENTS SPONDYLOSIS OF CERVICAL REGION WITHOUT MYELOPATHY OR RADICULOPATHY - M47.812 (PRIMARY) TREATMENT SPONDYLOSIS OF CERVICAL REGION WITHOUT MYELOPATHY OR RADICULOPATHY REFILL LIDOCAINE PATCH, 5 %, 2 PATCHS TO INTACT SKIN REMOVE AFTER 12 HOURS, EXTERNALLY, ON 12 HRS/OFF 12 HRS TO NECK AREA MDD=2, 30 DAYS, 30, NOTES: WORKERS COMP CLINICAL NOTES: 59-YEAR-OLD FEMALE IN FOR WORKER'S COMP. CHRONIC PAIN FOLLOW-UP. GIVEN PRESENTING SYMPTOMS RECOMMENDED CONTINUATION OF CURRENT MEDICATION REGIMEN WITH FOLLOW-UP IN 3 MONTHS. PATIENT WILL COME IN TO LEAVE A URINE SAMPLE. PATIENT HAS EXPRESSED UNDERSTANDING OF AND WAS IN AGREEMENT WITH TREATMENT PLAN. GIVEN TIME TO ASK QUESTIONS AND EXPRESS CONCERNS. , ISTOP REGISTRY REVIEWED AND DEMONSTRATES COMPLLIANCE. (REF # [id number] ) BRINGS IN MEDICATIONS WHICH IS APPROPRIATE FOR WHAT WAS DISPENSED. RECENT URINE TOXICOLOGY REVIEWED. NO UNAUTHORIZED MEDICATIONS. NO ILLICIT SUBSTANCES AND PRESCRIBED MEDICATIONS WERE PRESENT. VISIT TO BE BILLED BASED ON TIME SPENT WITH PATIENT. TIME SPENT WITH PATIENT 11 MINUTES. OTHERS NOTES: VITALS NOT OBTAINED DUE TO VIRTUAL VISIT, PRE-SCREENING COMPLETED, 03/15/20, NA. PROCEDURES PN WORKMANS' COMP OPINION IN YOUR OPINION, WAS THE INCIDENT THAT THE PATIENT DESCRIBED THE COMPETENT MEDICAL CAUSE OF THIS INJURY/ILLNESS? YES ARE THE PATIENT'S COMPLAINTS CONSISTENT WITH HIS/HER HISTORY OF THE INJURY/ILLNESS? YES IS THE PATIENT'S HISTORY OF THE INJURY/ILLNESS CONSISTENT WITH YOUR OBJECTIVE FINDING? YES WHAT IS THE PERCENTAGE OF TEMPORARY IMPAIRMENT? MODERATE TO MARKED = 66.7% IS THE PATIENT WORKING? YES DOCTOR ON SITE: MARJORIE PEARSON MD DISPOSITION & COMMUNICATION FOLLOW UP 3 MONTHS (REASON: W/C NECK PAIN, NEEDS NURSE APPT FOR UTOX AND NARC AGREEMENT) ELECTRONICALLY SIGNED BY JIMENEZ THOMAS ON 03/21/2020 AT 10:17 AM EDT DISCLAIMER : THIS IS A VISIT SUMMARY EXTRACTED FROM THE [employer] CHART. IT IS NOT A COPY OF THE [employer] PROGRESS NOTE. FANG
== END ==
LOC: M PAIN 09:15
PROVIDERS: ATTEND Family Medicine
DX: M47.812 Spondylosis without myelopathy or radiculopathy, cervical region (principal)

== ENCOUNTER → 2020-03-24 | Outpatient (REF) | payer OTHER | LOC: M SFHCLERA 10:29 | PROVIDERS: ATTEND Physician Assistant | DX: Z53.9 Procedure and treatment not carried out, unspecified reason (principal); J02.9 Acute pharyngitis, unspecified; Z11.59 Encounter for screening for other viral diseases ==

== ENCOUNTER → 2020-06-20 | Outpatient (CLI) | payer OTHER ==
--- NOTE | 2020-06-21 16:28 | ECWPNPC ---
PATIENT NAME: RAYRAY SERRA : 1960 GENDER: FEMALE VISIT DATE: 06/20/2020 DISCHARGE DATE: 06/20/20 1509 VISIT LOCKED DATE TIME: PHYSICIAN: JUANA MCNEILL RESOURCE: JUANA MCNEILL REASON FOR APPOINTMENT 1. NECK PAIN HISTORY OF PRESENT ILLNESS GENERAL: 59-YEAR-OLD FEMALE IN FOR CHRONIC PAIN FOLLOW-UP. SHE RATES HER PAIN CURRENTLY AT A 5 OUT OF 10. SHE FEELS HER MEDICATIONS ARE HELPFUL AND DENIES MED SIDE EFFECTS AT THIS TIME. -. FALL RISK SCREENING: SCREENING :ONE FALL WITHOUT INJURY IN THE PAST YEAR PATIENT FELL 2 WEEKS AGO, RECIEVED BRUSING ON HER RIGHT LEG. PATIEND DID NOT SEEK MEDICAL TREATMENT. PAIN SCREENING: PATIENT HAS A COMPLAINT OF ACUTE OR CHRONIC PAIN :YES LOCATION OF PAIN:NECK INTENSITY OF PAIN (SCALE OF 1 TO 10):5 WHAT DOES YOUR PAIN FEEL LIKE:ACHING, BURNING, SHARP, STABBING, TENDER, SORE DURATION:CONSTANT, AWAKENS FROM SLEEP PAIN IS INCREASED BY:PROLONGED STANDING PAIN IS DECREASED BY:USE OF PAIN MEDICATIONS, SITTING, OTHERS RESTING HELPS TO REDUCE PAIN NURSING NOTE: -. PAIN CENTER INTAKE QUESTIONS: DO YOU HAVE A HISTORY OF MRSA? :NO DO YOU TAKE A BLOOD THINNERS? :NO DO YOU HAVE ANY BLEEDING DISORDERS? :NO ANY NEW NUMBNESS OR WEAKNESS IN YOUR LEGS OR ARMS? :YES NEW NUMBNESS IN PATEINT'S LEFT ARM. ANY PACEMAKER,DEFIBRILLATOR, OR DORSAL COLUMN STIMULATOR? :NO DO YOU HAVE ANY RASHES OR OPEN SORES? :NO ARE YOU ALLERGIC TO IV DYE? :NO ARE YOU DIABETIC? :NO ANY NEW PROBLEMS WITH YOUR MEDICATIONS? :NO HAVE YOU RECEIVED A VACCINE IN THE PAST 30 DAYS? :YES FLU AND SHINGLE VACCINATION THREE WEEKS AGO. DO YOU PLAN TO RECEIVE A VACCINE IN THE NEXT 21 DAYS? :NO DO YOU NEED ANY PRESCRIPTION? :NO DO YOU TAKE ANY IMMUNOSUPPRESSIVE MEDICATIONS? :NO IS THERE A CHANCE YOU COULD BE ? :NO ARE YOU BREAST FEEDING? :NO CURRENT MEDICATIONS TAKING LEVOTHYROXINE SODIUM 88 MCG TABLET 1 TAB(S) ORALLY ONCE A DAY TAKING NEXIUM 40 MG CAPSULE DELAYED RELEASE 1 CAPSULE ORALLY NEEDED TAKING SIMVASTATIN 20 MG TABLET 1 TABLET IN THE EVENING ORALLY ONCE A DAY TAKING ESCITALOPRAM OXALATE 10 MG TABLET 1 TABLET ORALLY ONCE A DAY TAKING TRAZODONE HCL 100 MG TABLET 1 1/2 TABLET AT BEDTIME ORALLY ONCE A DAY TAKING ROPINIROLE HCL 4 MG TABLET 1 TABLET 1 TO 3 HOURS BEFORE BEDTIME ORALLY ONCE A DAY TAKING NORCO 5-325 MG TABLET 1 TABLET ORALLY EVERY 6 HRS PRN PAIN MDD=3 CHRONIC PAIN CATEGORY D CHRONIC PAIN 90 DAY SUPPLY TAKING LIDOCAINE 5 % PATCH 2 PATCHS TO INTACT SKIN REMOVE AFTER 12 HOURS EXTERNALLY ON 12 HRS/OFF 12 HRS TO NECK AREA MDD=2, NOTES: WORKERS COMP TAKING IBUPROFEN 800 MG TABLET 1 TABLET WITH FOOD OR MILK NEEDED ORALLY EVERY 6 HOURS NEEDED MDD3 TAKING GABAPENTIN 400 MG CAPSULE DIRECTED ORALLY FOR PAIN THREE TIMES DAILY MDD3 TAKING PROAIR HFA 108 (90 BASE) MCG/ACT AEROSOL SOLUTION 2 PUFFS NEEDED INHALATION EVERY 4-6 HRS NOT-TAKING CETIRIZINE HCL 10 MG TABLET 1 TABLET ORALLY ONCE A DAY NEEDED NOT-TAKING BACLOFEN 20 MG TABLET 1 TAB(S) ORALLY BID NOT-TAKING ESTRACE 0.1 MG/GM CREAM 0.5 GM VAGINAL EVERY NIGHT X 14 THEN TWICE A WEEK NOT-TAKING ELAVIL 25MG TABLET 1 TAB(S) ORAL ONCE A DAY NOT-TAKING AMITRIPTYLINE HCL 25 MG TABLET 3 TABLET ORALLY QHS NOT-TAKING LIDOCAINE VISCOUS 2 % SOLUTION 15 ML TO AFFECTED AREA NEEDED MOUTH/THROAT EVERY 3 HRS TO PAIN GUM AREAS NOT-TAKING VALIUM 5 MG TABLET 1 TABLET NEEDED ORALLY Q 8 HRS FOR SEVERE SPASM MDD=3S NOT-TAKING PROZAC 20 MG CAPSULE 1 CAPSULE IN THE MORNING ORALLY ONCE A DAY NOT-TAKING FLUOXETINE 40 MG CAPSULE 1 CAPSULE IN THE MORNING ORALLY ONCE A DAY MEDICATION LIST REVIEWED AND RECONCILED WITH THE PATIENT PAST MEDICAL HISTORY MYOFASCIAL PAIN SYNDROME IN HER BACK HYPOTHYROIDISM DEGENERATIVE DISC DISEASE THORACIC OUTLET SYNDROME PERIMENOPAUSAL, SYMPTOMATIC DEPRESSION FIBROMYALGIA VERTIGO RESTLESS LEG SYNDROME ALLERGIES N.K.D.A. SURGICAL HISTORY SECTION TUBAL LIGATION REMOVAL OF ONE RIB LEFT BREAST LUMPECTOMY 1996 D&C COLPOSCOPY FAMILY HISTORY FATHER: 81 YRS, COLON AND LIVER CANCER, DIAGNOSED AT 78. MOTHER: ALIVE 84 YRS, HYPERTENSION, HYPOTHYROIDISM SIBLINGS: HYPERTENSION, AAA, SISTER [place] AGE 55 DEID ,BROTHER POSSIBLE DRUGS ABUSE AGE 57 2 BROTHER(S) , 1 SISTER(S) . 1 SON(S) , 1 DAUGHTER(S) . BROTHER AT 50, RUPTURED AAA. DAUGHTER WITH HEPATITIS C. DENIES FAMILY HX OF BREAST OR OVARIAN CANCER. NO OTHER COLON CANCER IN FAMILY. \\NFATHER OF LIVER CANCERMOTHER - STROKE. SOCIAL HISTORY GENERAL: TOBACCO USE ARE YOU A:FORMER SMOKER HOW LONG HAS IT BEEN SINCE YOU LAST SMOKED?1-5 YEARS LATEX QUESTIONNAIRE LATEX ALLERGY : HAVE YOU EVER DEVELOPED ANY TYPE OF REACTION AFTER HANDLING LATEX PRODUCTS SUCH RUBBER GLOVES, CONDOMS, DIAPHRAGMS, BALLOONS, SOCKS, OR UNDERWEAR?YES HAS BEEN GETTING RASH FROM [place], [place] FOR HER ELBOW - PLEASE INDICATE :OTHER (DOCUMENT IN NOTES) LATEX ALLERGY : HAVE YOU EVER DEVELOPED ANY TYPE OF REACTION DURING OR AFTER DENTAL APPOINTMENT, VAGINAL/RECTAL EXAMINATION, SURGICAL PROCEDURE, OR ANY OTHER EXPOSURE?NO LATEX RISK : HAVE YOU EVER HAD ANY DIFFICULTY BREATHING OR HIVES AFTER EATING OR HANDLING ANY FRUITS, OR VEGETABLES; SUCH KIWI, BANANAS, STONE FRUITS, OR CHESTNUTSNO LATEX RISK : DO YOU HAVE A PREVIOUS PERSONAL HISTORY OF MORE THAN NINE SURGERIES, SPINA BIFIDA, OR REPEATED CATHERIZATIONS? NO LATEX RISK : ARE YOU FREQUENTLY EXPOSED TO LATEX PRODUCTS IN YOUR OCCUPATION?NO DATE ASKED : 06/20/2020 ALCOHOL SCREENING DID YOU HAVE A DRINK CONTAINING ALCOHOL IN THE PAST YEAR?NO POINTS0 INTERPRETATIONNEGATIVE RECREATIONAL DRUG USE DRUG USE?NO CAFFEINE 2 CUPS DAILY. YARSANI [id number] CONFUCIANISM LANGUAGE LANGUAGES SPOKEN:MALAY EDUCATION LEVEL OF EDUCATION:NOT FINISHED HIGH SCHOOL 9TH GRADE LEARNING BARRIERS / SPECIAL NEEDS CHANGE FROM LAST VISIT?NO BARRIERS TO LEARNING?YES STATES SHE IS ILLITERATE HEARING IMPAIRED?NO VISION IMPAIRED?YES COGNITIVELY IMPAIRED?NO :CORRECTIVE LENSES READINESS TO LEARN?YES LEARNING PREFERENCES?YES :TAPES/VIDEOS, DEMONSTRATION/VERBAL INSTRUCTION LEARNING CAPABILITIES PRESENT?YES EMOTIONAL BARRIERS?NO SPECIAL DEVICES?YES :CANE, WALKER OCC. SR. MANAGER NEEDED?NO DOMESTIC VIOLENCE DENIES. 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 NOW THAT THERE WILL BE A CHANGE IN MGMT, SHE IS PREPARING TO RETURN.. DIET: HAS IMPROVED. INCREASED FRUIT. EXERCISE: NONE. MARITAL STATUS: . OTHERS AT HOME: SPOUSE. NEW PATIENT PAIN DIARY PATIENT DESCRIBES PAIN :ACHING, HAVE IT ALL THE TIME, TENDER, THROBBING, SORE FROM 0-10, WHAT LEVEL IS YOUR PAIN TODAY?5 12/17/19 PRECIPITATING FACTORS LIFTING, ALL ACTIVITIES ALLEVIATING FACTORS REST, MEDICATIONS, MASSAGE PAIN CLINIC PFS, CLERGY, PUBLIC HEALTH REFERRALS PFS REFERRAL NEEDED?NO CLERGY REFERRAL NEEDED?NO PUBLIC HEALTH REFERRAL NEEDED?NO HAS THE PATIENT BEEN EDUCATED REGARDING HIS/HER PLAN OF CARE?YES HAS THE PATIENT BEEN EDUCATED REGARDING PAIN, THE RISK FOR PAIN, THE IMPORTANCE OF EFFECTIVE PAIN MANAGEMENT, AND THE PAIN ASSESSMENT PROCESS?YES ADVANCE DIRECTIVE ADVANCE DIRECTIVE DISCUSSED WITH PATIENT:YES PT DOES NOT HAVE ANY ADVANCED DIRECTIVES AND DECLINED INFORMATION ON HCP AT THIS TIME. JS HOSPITALIZATION/MAJOR DIAGNOSTIC PROCEDURE SURGERIES REVIEW OF SYSTEMS CONSTITUTIONAL: ANY RECENT FEVER NO . CHILLS NO . WEIGHT CHANGE OF UNKNOWN REASONS NO . GASTROENTEROLOGY: NEW UNEXPLAINABLE CHANGES IN BOWEL CONTROL NO . CONSTIPATION NO . GENITOURINARY: ANY NEW CHANGE IN BLADDER CONTROL? NO . NEUROLOGY: NEW ONSET DIZZINESS OR NEUROLOGICAL CHANGES NOT MENTIONED NO . NEW NUMBNESS OR PAIN PATTERNS NOT MENTIONED AND PERTINENT TO TODAY'S VISIT NO . CARDIOLOGY: NEW CHEST PRESSURE NO . NEW CHEST PAIN NO . RESPIRATORY: UNEXPLAINABLE COUGH NO . NEW SHORTNESS OF BREATH NO . VITAL SIGNS WT 173.2 LBS, HT 62 1/2, BMI 31.17 INDEX, BP 116/60 MM HG, HR 78 /MIN, RR 18 /MIN, TEMP 97.4 F, OXYGEN SAT % 97%, SAFE IN ENV? (Y/N) YES, NA INITIALS AW 1442, REVIEWED BY: DM. EXAMINATION GENERAL EXAMINATION: GENERALNO ACUTE DISTRESS, WELL NOURISHED AND HYDRATED. PSYCHAPPROPRIATE MOOD AND AFFECT . LUNGS:CLEAR TO AUSCULTATION BILATERALLY, NO WHEEZES, RHONCHI, RALES. HEART:NO MURMURS, REGULAR RATE AND RHYTHM. ASSESSMENTS CERVICAL POST-LAMINECTOMY SYNDROME - M96.1 (PRIMARY) TREATMENT CERVICAL POST-LAMINECTOMY SYNDROME CLINICAL NOTES: 59-YEAR-OLD FEMALE IN FOR CHRONIC PAIN FOLLOW-UP. GIVEN PRESENTING SYMPTOMS RECOMMENDED CONTINUATION OF CURRENT MEDICATION REGIMEN WITH FOLLOW-UP IN 3 MONTHS. PATIENT HAS EXPRESSED UNDERSTANDING OF AND WAS IN AGREEMENT WITH TREATMENT PLAN. GIVEN TIME TO ASK QUESTIONS AND EXPRESS CONCERNS. , ISTOP REGISTRY REVIEWED AND DEMONSTRATES COMPLLIANCE. (REF # ) BRINGS IN MEDICATIONS WHICH IS APPROPRIATE FOR WHAT WAS DISPENSED. RECENT URINE TOXICOLOGY REVIEWED. NO UNAUTHORIZED MEDICATIONS. NO ILLICIT SUBSTANCES AND PRESCRIBED MEDICATIONS WERE PRESENT. PROCEDURES PN WORKMANS' COMP OPINION IN YOUR OPINION, WAS THE INCIDENT THAT THE PATIENT DESCRIBED THE COMPETENT MEDICAL CAUSE OF THIS INJURY/ILLNESS? YES ARE THE PATIENT'S COMPLAINTS CONSISTENT WITH HIS/HER HISTORY OF THE INJURY/ILLNESS? YES IS THE PATIENT'S HISTORY OF THE INJURY/ILLNESS CONSISTENT WITH YOUR OBJECTIVE FINDING? YES WHAT IS THE PERCENTAGE OF TEMPORARY IMPAIRMENT? MODERATE TO MARKED = 66.7% IS THE PATIENT WORKING? YES DOCTOR ON SITE: MARJORIE PEARSON MD PROCEDURE CODES FA211 ESTABILISHED PATIENT [facility] CHARGE DISPOSITION & COMMUNICATION FOLLOW UP 3 MONTHS (REASON: NECK PAIN) ELECTRONICALLY SIGNED BY JIMENEZ THOMAS ON 06/21/2020 AT 03:17 PM EDT DISCLAIMER : THIS IS A VISIT SUMMARY EXTRACTED FROM THE [employer] CHART. IT IS NOT A COPY OF THE [employer] PROGRESS NOTE. FANG
== END ==
LOC: M PAIN 14:30
PROVIDERS: ATTEND Family Medicine
DX: M96.1 Postlaminectomy syndrome, not elsewhere classified (principal); M79.18 Myalgia, other site; E03.9 Hypothyroidism, unspecified; F32.9 Major depressive disorder, single episode, unspecified; M79.7 Fibromyalgia; R42 Dizziness and giddiness; G25.81 Restless legs syndrome; G54.0 Brachial plexus disorders; Z87.891 Personal history of nicotine dependence; Z79.891 Long term (current) use of opiate analgesic; Z79.899 Other long term (current) drug therapy

== ENCOUNTER → 2020-07-05 | Outpatient (CLI) | payer OTHER ==
[2020-07-05 08:32] LABS: BASO # 0.1 10^3/uL (0.0-0.2); BASO % 1.1 % (0.0-1.0); EOS # 0.2 10^3/uL (0.0-0.5); HEMATOCRIT 39.8 % (36.0-47.0); HEMOGLOBIN 12.7 g/dl (12.0-15.5); LYMPH # 1.8 10^3/uL (1.5-5.0); LYMPH % 37.8 % (24.0-44.0); MEAN CORPUSCULAR HEMOGLOBIN 28.8 pg (27.0-33.0); MEAN CORPUSCULAR HGB CONC 31.9 g/dl (32.0-36.5); MEAN CORPUSCULAR VOLUME 90.2 fl (80.0-96.0); MONO # 0.4 10^3/uL (0.0-0.8); NEUTROPHILS # 2.3 10^3/uL (1.5-8.5); NEUTROPHILS % 48.9 % (36.0-66.0); PLATELET COUNT, AUTOMATED 245 10^3/uL (150-450); RED BLOOD COUNT 4.41 10^6/uL (4.00-5.40); WHITE BLOOD COUNT 4.7 10^3/uL (4.0-10.0)
[2020-07-05 09:07] LABS: ALBUMIN 3.9 GM/DL (3.2-5.2); ALT/SGPT 27 U/L (12-78); BILIRUBIN,TOTAL 0.5 MG/DL (0.2-1.0); BLOOD UREA NITROGEN 14 MG/DL (7-18); CALCIUM LEVEL 8.7 MG/DL (8.8-10.2); CARBON DIOXIDE LEVEL 27 MEQ/L (21-32); CHLORIDE LEVEL 107 MEQ/L (98-107); CHOLESTEROL LEVEL 176 MG/DL (<200); CHOLESTEROL RISK RATIO 2.885 (<5); CREATININE FOR GFR 0.87 MG/DL (0.55-1.30); GLOMERULAR FILTRATION RATE > 60.0 (>45); GLUCOSE, FASTING 92 MG/DL (70-100); HDL CHOLESTEROL 61 MG/DL (>40); LDL CHOLESTEROL 84 MG/DL (<100); MAGNESIUM LEVEL 2.1 MG/DL (1.8-2.4); NON-HDL-C 115 MG/DL; POTASSIUM SERUM 4.3 MEQ/L (3.5-5.1); SODIUM LEVEL 140 MEQ/L (136-145); TOTAL PROTEIN 7.1 GM/DL (6.4-8.2); TRIGLYCERIDES LEVEL 155 MG/DL (<150)
[2020-07-05 10:24] LABS: HEMOGLOBIN A1c 5.7 %
== END ==
LOC: M LAB 07:05
PROVIDERS: ATTEND Nurse Practitioner Adult Health
DX: E78.5 Hyperlipidemia, unspecified (principal); D64.9 Anemia, unspecified; Z79.899 Other long term (current) drug therapy

== ENCOUNTER → 2020-07-25 | Outpatient (REF) | payer OTHER | LOC: M SFHCWAGY 17:03 | PROVIDERS: ATTEND Nurse Practitioner Family | DX: Z12.4 Encounter for screening for malignant neoplasm of cervix (principal) | CPT/HCPCS: 87624; G0123 ==

== ENCOUNTER → 2020-07-25 | Outpatient (CLI) | payer OTHER ==
--- NOTE | 2020-07-25 14:33 | REPMRS ---
Patient History The patient states she had a clinical breast exam in 07/22 Patient is postmenopausal. Family history of colorectal cancer at age 50 or over in father. Benign lumpectomy of the left breast, 1996. Taking estrogen for 1 month. 3D TOMOSYNTHESIS WAS PERFORMED. The [place] Coreas lifetime risk for breast cancer is 6.1%. Volpara breast density b. Digital Woman Screen Mammo: July 25, 2020 - Exam #: [id number] Bilateral CC and MLO view(s) were taken. Technologist: Melia Hunt, Technologist Prior study comparison: June 04, 2017, digital woman screen mammo performed at [facility]. January 14, 2014, digital woman screen mammo performed at [facility]. FINDINGS: There are scattered fibroglandular densities. There has been no change in the appearance of the mammogram from the prior studies. There is a mild amount of residual fibroglandular tissue which is fairly symmetric. There is no interval development of dominant mass, architectural distortion, or clustered microcalcification suggestive of malignancy. Assessment: BI-RADS/ACR category 1 mammogram. Negative Mammogram. Recommendation Routine screening mammogram in 1 year (for women over age 40). This mammogram was interpreted with the aid of an FDA-approved computer-aided dectection system. Electronically Signed By: Samuel Frederick MD 07/25/20 5031
== END ==
LOC: M WHC 13:35
PROVIDERS: ATTEND Nurse Practitioner Family
DX: Z01.419 Encounter for gynecological examination (general) (routine) without abnormal findings (principal); Z12.31 Encounter for screening mammogram for malignant neoplasm of breast; Z78.0 Asymptomatic menopausal state; Z80.0 Family history of malignant neoplasm of digestive organs; Z86.018 Personal history of other benign neoplasm; Z92.23 Personal history of estrogen therapy
CPT/HCPCS: 77063; 77067; 87624; G0123; G0463

== ENCOUNTER → 2020-09-29 | Outpatient (CLI) | payer OTHER ==
[~2020-09-29] MED LIST changes: +GABA-282 PO; -GABA-843 PO
--- NOTE | 2020-09-30 07:46 | ECWPNPC ---
PATIENT NAME: RAYRAY SERRA : 1960 GENDER: FEMALE VISIT DATE: 09/29/2020 DISCHARGE DATE: 09/29/20 1506 VISIT LOCKED DATE TIME: PHYSICIAN: JUANA MCNEILL RESOURCE: JUANA MCNEILL REASON FOR APPOINTMENT 1. NECK PAIN HISTORY OF PRESENT ILLNESS DEPRESSION SCREENING: PHQ-9 LITTLE INTEREST OR PLEASURE IN DOING THINGSMORE THAN HALF THE DAYS FEELING DOWN, DEPRESSED, OR HOPELESSNEARLY EVERY DAY TROUBLE FALLING OR STAYING ASLEEP, OR SLEEPING TOO MUCHNEARLY EVERY DAY FEELING TIRED OR HAVING LITTLE ENERGYMORE THAN HALF THE DAYS POOR APPETITE OR OVEREATING MORE THAN HALF THE DAYS FEELING BAD ABOUT YOURSELF-OR THAT YOU ARE A FAILURE OR HAVE LET YOURSELF OR YOUR FAMILY DOWN NOT AT ALL TROUBLE CONCENTRATING ON THINGS, SUCH READING THE NEWSPAPER OR WATCHING TELEVISION NEARLY EVERY DAY MOVING OR SPEAKING SO SLOWLY THAT OTHER PEOPLE COULD HAVE NOTICED. OR THE OPPOSITE- BEING SO FIDGETY OR RESTLESS THAT YOU HAVE BEEN MOVING AROUND A LOT MORE THAN USUALNOT AT ALL THOUGHTS THAT YOU WOULD BE BETTER OFF , OR OF HURTING YOURSELF IN SOME WAY?NOT AT ALL TOTAL SCORE:15 INTERPRETATIONMODERATELY SEVERE DEPRESSION PHQ-2 (2015 EDITION) LITTLE INTEREST OR PLEASURE IN DOING THINGS?NEARLY EVERY DAY FEELING DOWN, DEPRESSED, OR HOPELESS?SEVERAL DAYS TOTAL SCORE4 60-YEAR-OLD FEMALE IN FOR WORKER'S COMP. CHRONIC PAIN FOLLOW-UP. SHE RATES HER PAIN CURRENTLY AT A 5 OUT OF 10 AND DESCRIBES IT ACHING, BURNING, CONTINUOUS, AND SORE. SHE FEELS HER MEDICATIONS ARE HELPFUL AND DENIES MED SIDE EFFECTS AT THIS TIME. 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 THE PATIENT STATES THAT HER PAIN IS MAINLY LOCATED IN HER NECK, BUT IT ALSO RADIATES DOWN HER THORACIC AND DOWN BOTH ARMS. THE PATIENT SAYS SHE EXPERIENCES PAIN AND TINGLING SENSATIONS DOWN BOTH OF HER ARMS. GENERAL: -. FALL RISK SCREENING: SCREENING :NO FALLS REPORTED IN THE LAST YEAR PAIN SCREENING: PATIENT HAS A COMPLAINT OF ACUTE OR CHRONIC PAIN :YES LOCATION OF PAIN:NECK, BOTH SHOULDERS, UPPER BACK INTENSITY OF PAIN (SCALE OF 1 TO 10):5 WHAT DOES YOUR PAIN FEEL LIKE:ACHING, BURNING, CONTINOUS, SORE DURATION:CONTINOUS, AWAKENS FROM SLEEP PAIN IS INCREASED BY:ACTIVITIES, PROLONGED STANDING PAIN IS DECREASED BY:USE OF PAIN MEDICATIONS HYDROCODONE TREATMENT/MEDICATIONS USED TO MANAGE PAIN:OTC PAIN RELIEVERS, OPIOIDS, PHYSICAL THERAPY LEVEL OF RELIEF FROM PAIN TREATMENTS IN THE PAST:50% NURSING NOTE: -. PAIN CENTER INTAKE QUESTIONS: DO YOU HAVE A HISTORY OF MRSA? :NO DO YOU TAKE A BLOOD THINNERS? :NO DO YOU HAVE ANY BLEEDING DISORDERS? :NO ANY NEW NUMBNESS OR WEAKNESS IN YOUR LEGS OR ARMS? :NO ANY PACEMAKER,DEFIBRILLATOR, OR DORSAL COLUMN STIMULATOR? :NO DO YOU HAVE ANY RASHES OR OPEN SORES? :NO ARE YOU ALLERGIC TO IV DYE? :NO ARE YOU DIABETIC? :NO ANY NEW PROBLEMS WITH YOUR MEDICATIONS? :NO HAVE YOU RECEIVED A VACCINE IN THE PAST 30 DAYS? :NO DO YOU PLAN TO RECEIVE A VACCINE IN THE NEXT 21 DAYS? :YES IF SO WHAT VACCINE AND WHEN? SHINGLES VACCINATION 08/30/2020 DO YOU NEED ANY PRESCRIPTION? :YES LIDOCAINE PATCHES 60 DO YOU TAKE ANY IMMUNOSUPPRESSIVE MEDICATIONS? :NO IS THERE A CHANCE YOU COULD BE ? :NO ARE YOU BREAST FEEDING? :NO CURRENT MEDICATIONS TAKING LEVOTHYROXINE SODIUM 88 MCG TABLET 1 TAB(S) ORALLY ONCE A DAY TAKING NEXIUM 40 MG CAPSULE DELAYED RELEASE 1 CAPSULE ORALLY NEEDED TAKING SIMVASTATIN 20 MG TABLET 1 TABLET IN THE EVENING ORALLY ONCE A DAY TAKING ESCITALOPRAM OXALATE 10 MG TABLET 1 TABLET ORALLY ONCE A DAY TAKING TRAZODONE HCL 100 MG TABLET 1 1/2 TABLET AT BEDTIME ORALLY ONCE A DAY TAKING ROPINIROLE HCL 4 MG TABLET 1 TABLET 1 TO 3 HOURS BEFORE BEDTIME ORALLY ONCE A DAY TAKING PREMARIN 0.625 MG/GM CREAM DIRECTED VAGINAL TAKING ESTRACE 0.1 MG/GM CREAM 0.5 GM VAGINAL EVERY NIGHT X 14 THEN TWICE A WEEK TAKING NORCO 5-325 MG TABLET 1 TABLET ORALLY EVERY 6 HRS PRN PAIN MDD=3 CHRONIC PAIN CATEGORY D CHRONIC PAIN 90 DAY SUPPLY TAKING LIDOCAINE 5 % PATCH 2 PATCHS TO INTACT SKIN REMOVE AFTER 12 HOURS EXTERNALLY ON 12 HRS/OFF 12 HRS TO NECK AREA MDD=2, NOTES: WORKERS COMP TAKING GABAPENTIN 400 MG CAPSULE DIRECTED ORALLY FOR PAIN THREE TIMES DAILY MDD3 TAKING IBUPROFEN 800 MG TABLET 1 TABLET WITH FOOD OR MILK NEEDED ORALLY EVERY 6 HOURS NEEDED MDD3 NOT-TAKING PROAIR HFA 108 (90 BASE) MCG/ACT AEROSOL SOLUTION 2 PUFFS NEEDED INHALATION EVERY 4-6 HRS NOT-TAKING CETIRIZINE HCL 10 MG TABLET 1 TABLET ORALLY ONCE A DAY NEEDED NOT-TAKING BACLOFEN 20 MG TABLET 1 TAB(S) ORALLY BID NOT-TAKING ELAVIL 25MG TABLET 1 TAB(S) ORAL ONCE A DAY NOT-TAKING AMITRIPTYLINE HCL 25 MG TABLET 3 TABLET ORALLY QHS NOT-TAKING LIDOCAINE VISCOUS 2 % SOLUTION 15 ML TO AFFECTED AREA NEEDED MOUTH/THROAT EVERY 3 HRS TO PAIN GUM AREAS NOT-TAKING VALIUM 5 MG TABLET 1 TABLET NEEDED ORALLY Q 8 HRS FOR SEVERE SPASM MDD=3S NOT-TAKING PROZAC 20 MG CAPSULE 1 CAPSULE IN THE MORNING ORALLY ONCE A DAY NOT-TAKING FLUOXETINE 40 MG CAPSULE 1 CAPSULE IN THE MORNING ORALLY ONCE A DAY MEDICATION LIST REVIEWED AND RECONCILED WITH THE PATIENT PAST MEDICAL HISTORY MYOFASCIAL PAIN SYNDROME IN HER BACK HYPOTHYROIDISM DEGENERATIVE DISC DISEASE THORACIC OUTLET SYNDROME PERIMENOPAUSAL, SYMPTOMATIC DEPRESSION FIBROMYALGIA VERTIGO RESTLESS LEG SYNDROME ALLERGIES N.K.D.A. SOCIAL HISTORY GENERAL: TOBACCO USE ARE YOU A:FORMER SMOKER HOW LONG HAS IT BEEN SINCE YOU LAST SMOKED?1-5 YEARS LATEX QUESTIONNAIRE LATEX ALLERGY : HAVE YOU EVER DEVELOPED ANY TYPE OF REACTION AFTER HANDLING LATEX PRODUCTS SUCH RUBBER GLOVES, CONDOMS, DIAPHRAGMS, BALLOONS, SOCKS, OR UNDERWEAR?YES HAS BEEN GETTING RASH FROM [place] FOR HER ELBOW - PLEASE INDICATE :OTHER (DOCUMENT IN NOTES) LATEX ALLERGY : HAVE YOU EVER DEVELOPED ANY TYPE OF REACTION DURING OR AFTER DENTAL APPOINTMENT, VAGINAL/RECTAL EXAMINATION, SURGICAL PROCEDURE, OR ANY OTHER EXPOSURE?NO LATEX RISK : HAVE YOU EVER HAD ANY DIFFICULTY BREATHING OR HIVES AFTER EATING OR HANDLING ANY FRUITS, OR VEGETABLES; SUCH KIWI, BANANAS, STONE FRUITS, OR CHESTNUTSNO LATEX RISK : DO YOU HAVE A PREVIOUS PERSONAL HISTORY OF MORE THAN NINE SURGERIES, SPINA BIFIDA, OR REPEATED CATHERIZATIONS? NO LATEX RISK : ARE YOU FREQUENTLY EXPOSED TO LATEX PRODUCTS IN YOUR OCCUPATION?NO DATE ASKED : 09/29/2020 ALCOHOL USE: NO. ALCOHOL SCREENING DID YOU HAVE A DRINK CONTAINING ALCOHOL IN THE PAST YEAR?NO POINTS0 INTERPRETATIONNEGATIVE RECREATIONAL DRUG USE DRUG USE?NO CAFFEINE 2 CUPS DAILY. VOODOO [id number] EPISCOPAL LANGUAGE LANGUAGES SPOKEN:PALESTINIAN EDUCATION LEVEL OF EDUCATION:NOT FINISHED HIGH SCHOOL 9TH GRADE LEARNING BARRIERS / SPECIAL NEEDS CHANGE FROM LAST VISIT?NO BARRIERS TO LEARNING?YES STATES SHE IS ILLITERATE HEARING IMPAIRED?NO VISION IMPAIRED?YES :CORRECTIVE LENSES COGNITIVELY IMPAIRED?NO READINESS TO LEARN?YES LEARNING PREFERENCES?YES :TAPES/VIDEOS, DEMONSTRATION/VERBAL INSTRUCTION LEARNING CAPABILITIES PRESENT?YES EMOTIONAL BARRIERS?NO SPECIAL DEVICES?YES :CANE, WALKER OCC. RANGE AIDE NEEDED?NO DOMESTIC VIOLENCE DENIES. 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 DIET: REGULAR. EXERCISE: NONE. MARITAL STATUS: .. OTHERS AT HOME: NONE. PATIENT DESCRIBES PAIN :ACHING, HAVE IT ALL THE TIME, TENDER, THROBBING, SORE FROM 0-10, WHAT LEVEL IS YOUR PAIN TODAY?5 12/17/19 PRECIPITATING FACTORS LIFTING, ALL ACTIVITIES ALLEVIATING FACTORS REST, MEDICATIONS, MASSAGE - PFS REFERRAL NEEDED?NO CLERGY REFERRAL NEEDED?NO PUBLIC HEALTH REFERRAL NEEDED?NO HAS THE PATIENT BEEN EDUCATED REGARDING HIS/HER PLAN OF CARE?YES HAS THE PATIENT BEEN EDUCATED REGARDING PAIN, THE RISK FOR PAIN, THE IMPORTANCE OF EFFECTIVE PAIN MANAGEMENT, AND THE PAIN ASSESSMENT PROCESS?YES ADVANCE DIRECTIVE ADVANCE DIRECTIVE DISCUSSED WITH PATIENT:YES PT DOES NOT HAVE ANY ADVANCED DIRECTIVES AND DECLINED INFORMATION ON HCP AT THIS TIME. JS REVIEW OF SYSTEMS CONSTITUTIONAL: ANY RECENT FEVER NO . CHILLS NO . WEIGHT CHANGE OF UNKNOWN REASONS NO . GASTROENTEROLOGY: NEW UNEXPLAINABLE CHANGES IN BOWEL CONTROL NO . CONSTIPATION NO . GENITOURINARY: ANY NEW CHANGE IN BLADDER CONTROL? NO . NEUROLOGY: NEW ONSET DIZZINESS OR NEUROLOGICAL CHANGES NOT MENTIONED NO . NEW NUMBNESS OR PAIN PATTERNS NOT MENTIONED AND PERTINENT TO TODAY'S VISIT NO . CARDIOLOGY: NEW CHEST PRESSURE NO . NEW CHEST PAIN NO . RESPIRATORY: UNEXPLAINABLE COUGH NO . NEW SHORTNESS OF BREATH NO . VITAL SIGNS WT 174.4 LBS, HT 61 IN, BMI 32.95 INDEX, BP 110/59 MM HG, HR 65 /MIN, RR 18 /MIN, TEMP 99.7 F, OXYGEN SAT % 95%, SAFE IN ENV? (Y/N) YES, REVIEWED BY: THOMAS LEYVA MA. EXAMINATION GENERAL EXAMINATION: GENERALNO ACUTE DISTRESS, WELL NOURISHED AND HYDRATED. PSYCHAPPROPRIATE MOOD AND AFFECT . LUNGS:CLEAR TO AUSCULTATION BILATERALLY, NO WHEEZES, RHONCHI, RALES. HEART:NO MURMURS, REGULAR RATE AND RHYTHM. ASSESSMENTS CHRONIC PRESCRIPTION OPIATE USE - Z79.899 (PRIMARY), RISK: (NULL) CERVICAL DISC DISORDER WITH RADICULOPATHY OF CERVICAL REGION - M50.10, RISK: (NULL) TREATMENT CHRONIC PRESCRIPTION OPIATE USE NOTES: 60-YEAR-OLD FEMALE IN FOR CHRONIC PAIN FOLLOW-UP. GIVEN PRESENTING SYMPTOMS RECOMMENDED CONTINUATION OF CURRENT MEDICATION REGIMEN WITH FOLLOW-UP IN 3 MONTHS. DEPRESSION WAS DISCUSSED WITH PATIENT AND SHE ADMITS TO BEING ON MEDICATIONS CURRENTLY. SHE DENIES COUNSELING SERVICES AND WAS GIVEN INFORMATION REGARDING [facility] IN [facility] HOURS. PATIENT HAS EXPRESSED UNDERSTANDING OF AND WAS IN AGREEMENT WITH TREATMENT PLAN. GIVEN TIME TO ASK QUESTIONS AND EXPRESS CONCERNS. , ISTOP REGISTRY REVIEWED AND DEMONSTRATES COMPLLIANCE. (REF # [id number] ) BRINGS IN MEDICATIONS WHICH IS APPROPRIATE FOR WHAT WAS DISPENSED. RECENT URINE TOXICOLOGY REVIEWED. NO UNAUTHORIZED MEDICATIONS. NO ILLICIT SUBSTANCES AND PRESCRIBED MEDICATIONS WERE PRESENT. REFERRAL TO:REFERRAL TRACKER PHQ 9 [facility] REASON:DEPRESSION CERVICAL DISC DISORDER WITH RADICULOPATHY OF CERVICAL REGION REFILL GABAPENTIN CAPSULE, 400 MG, DIRECTED, ORALLY FOR PAIN, THREE TIMES DAILY MDD3, 90 DAY(S), 270, REFILLS 2 REFILL IBUPROFEN TABLET, 800 MG, 1 TABLET WITH FOOD OR MILK NEEDED, ORALLY, EVERY 6 HOURS NEEDED MDD3, 90 DAY(S), 270, REFILLS 1 CONTINUE LIDOCAINE PATCH, 5 %, 2 PATCHS TO INTACT SKIN REMOVE AFTER 12 HOURS, EXTERNALLY, ON 12 HRS/OFF 12 HRS TO NECK AREA MDD=2, 90 DAY(S), 90, REFILLS 1, NOTES: WORKERS COMP OTHERS CLINICAL NOTES: 09/29/2020 PATIENT SCORED 15 ON PHQ9. PROVIDER NOTIFIED. CATIE LEYVA MA. PROCEDURES PN WORKMANS' COMP OPINION IN YOUR OPINION, WAS THE INCIDENT THAT THE PATIENT DESCRIBED THE COMPETENT MEDICAL CAUSE OF THIS INJURY/ILLNESS? YES ARE THE PATIENT'S COMPLAINTS CONSISTENT WITH HIS/HER HISTORY OF THE INJURY/ILLNESS? YES IS THE PATIENT'S HISTORY OF THE INJURY/ILLNESS CONSISTENT WITH YOUR OBJECTIVE FINDING? YES WHAT IS THE PERCENTAGE OF TEMPORARY IMPAIRMENT? MODERATE TO MARKED = 66.7% IS THE PATIENT WORKING? YES DOCTOR ON SITE: MARJORIE PEARSON MD PROCEDURE CODES FA211 ESTABILISHED PATIENT [facility] FACILITY CHARGE DISPOSITION & COMMUNICATION FOLLOW UP 3 MONTHS (REASON: NECK PAIN ) ELECTRONICALLY SIGNED BY JIMENEZ THOMAS ON 09/29/2020 AT 03:26 PM EST DISCLAIMER : THIS IS A VISIT SUMMARY EXTRACTED FROM THE [employer] CHART. IT IS NOT A COPY OF THE [employer] PROGRESS NOTE. FANG
== END ==
LOC: M PAIN 14:00
PROVIDERS: ATTEND Family Medicine
DX: G89.29 Other chronic pain (principal); M50.10 Cervical disc disorder with radiculopathy, unspecified cervical region; M79.18 Myalgia, other site; E03.9 Hypothyroidism, unspecified; F32.9 Major depressive disorder, single episode, unspecified; M79.7 Fibromyalgia; R42 Dizziness and giddiness; G25.81 Restless legs syndrome; Z79.899 Other long term (current) drug therapy; Z79.891 Long term (current) use of opiate analgesic; Z87.891 Personal history of nicotine dependence

== ENCOUNTER → 2020-11-13 | Outpatient (CLI) | payer OTHER ==
[2020-11-13 08:46] LABS: BASO # 0.1 10^3/uL (0.0-0.2); EOS # 0.2 10^3/uL (0.0-0.5); EOS % 4.1 % (0.0-3.0); HEMATOCRIT 40.6 % (36.0-47.0); HEMOGLOBIN 13.8 g/dl (12.0-15.5); LYMPH # 2.5 10^3/uL (1.5-5.0); LYMPH % 43.5 % (24.0-44.0); MEAN CORPUSCULAR HEMOGLOBIN 30.3 pg (27.0-33.0); MONO # 0.4 10^3/uL (0.0-0.8); MONO % 7.2 % (2.0-8.0); NEUTROPHILS # 2.6 10^3/uL (1.5-8.5); PLATELET COUNT, AUTOMATED 247 10^3/uL (150-450); RED BLOOD COUNT 4.56 10^6/uL (4.00-5.40); WHITE BLOOD COUNT 5.8 10^3/uL (4.0-10.0)
[2020-11-13 09:03] LABS: HEMOGLOBIN A1c 5.6 %
[2020-11-13 09:18] LABS: ALBUMIN 4.1 GM/DL (3.2-5.2); ALT/SGPT 25 U/L (12-78); BILIRUBIN,TOTAL 0.4 MG/DL (0.2-1.0); BLOOD UREA NITROGEN 15 MG/DL (7-18); CALCIUM LEVEL 9.1 MG/DL (8.8-10.2); CARBON DIOXIDE LEVEL 31 MEQ/L (21-32); CHLORIDE LEVEL 104 MEQ/L (98-107); CHOLESTEROL LEVEL 200 MG/DL (<200); CHOLESTEROL RISK RATIO 3.125 (<5); CREATININE FOR GFR 0.84 MG/DL (0.55-1.30); GLOMERULAR FILTRATION RATE > 60.0 (>45); GLUCOSE, FASTING 109 MG/DL (70-100); HDL CHOLESTEROL 64 MG/DL (>40); LDL CHOLESTEROL 93 MG/DL (<100); MAGNESIUM LEVEL 2.3 MG/DL (1.8-2.4); NON-HDL-C 136 MG/DL; POTASSIUM SERUM 4.1 MEQ/L (3.5-5.1); SODIUM LEVEL 139 MEQ/L (136-145); TOTAL PROTEIN 7.4 GM/DL (6.4-8.2); TRIGLYCERIDES LEVEL 213 MG/DL (<150)
== END ==
LOC: M LAB 08:16
PROVIDERS: ATTEND Nurse Practitioner Family
DX: Z00.01 Encounter for general adult medical examination with abnormal findings (principal); Z79.899 Other long term (current) drug therapy

== ENCOUNTER → 2020-12-29 | Outpatient (CLI) | payer OTHER ==
--- NOTE | 2020-12-31 07:54 | ECWPNPC ---
PATIENT NAME: RAYRAY SERRA : 1960 GENDER: FEMALE VISIT DATE: 12/29/2020 DISCHARGE DATE: 12/29/20 1354 VISIT LOCKED DATE TIME: PHYSICIAN: JUANA MCNEILL RESOURCE: JUANA MCNEILL REASON FOR APPOINTMENT 1. 3 MONTH NECK PAIN HISTORY OF PRESENT ILLNESS GENERAL: 60-YEAR-OLD FEMALE IN FOR CHRONIC PAIN FOLLOW-UP. SHE RATES HER PAIN CURRENTLY AT A 5 OUT OF 10 AND DESCRIBES IT CONTINUOUS, TENDER, THROBBING, AND SORE. PATIENT FEELS HER MEDICATIONS ARE HELPFUL AND DENIES MED SIDE EFFECTS AT THIS TIME. 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 THE PATIENT STATES THAT HER PAIN IS MAINLY LOCATED IN HER NECK, BUT IT ALSO RADIATES DOWN HER THORACIC AND DOWN BOTH ARMS. THE PATIENT SAYS SHE EXPERIENCES PAIN AND TINGLING SENSATIONS DOWN BOTH OF HER ARMS. -. FALL RISK SCREENING: SCREENING : NO FALLS REPORTED IN THE LAST YEAR. PAIN SCREENING: PATIENT HAS A COMPLAINT OF ACUTE OR CHRONIC PAIN :YES LOCATION OF PAIN:NECK INTENSITY OF PAIN (SCALE OF 1 TO 10):5 WHAT DOES YOUR PAIN FEEL LIKE:CONTINOUS, TENDER, THROBBING, SORE DURATION:CONTINOUS, CONSTANT, AWAKENS FROM SLEEP PAIN IS INCREASED BY:ACTIVITIES, PROLONGED STANDING PAIN IS DECREASED BY:USE OF PAIN MEDICATIONS, SITTING NURSING NOTE: -. PAIN CENTER INTAKE QUESTIONS: DO YOU HAVE A HISTORY OF MRSA? :NO DO YOU TAKE A BLOOD THINNERS? :NO DO YOU HAVE ANY BLEEDING DISORDERS? :NO ANY NEW NUMBNESS OR WEAKNESS IN YOUR LEGS OR ARMS? :NO ANY PACEMAKER,DEFIBRILLATOR, OR DORSAL COLUMN STIMULATOR? :NO DO YOU HAVE ANY RASHES OR OPEN SORES? :YES RASH- GENERALIZED ARE YOU ALLERGIC TO IV DYE? :NO ARE YOU DIABETIC? :NO ANY NEW PROBLEMS WITH YOUR MEDICATIONS? :NO HAVE YOU RECEIVED A VACCINE IN THE PAST 30 DAYS? :YES IF SO WHAT VACCINE AND WHEN? SECOND COVID VACCINATION 11/22/2020 DO YOU PLAN TO RECEIVE A VACCINE IN THE NEXT 21 DAYS? :NO DO YOU NEED ANY PRESCRIPTION? :NO DO YOU TAKE ANY IMMUNOSUPPRESSIVE MEDICATIONS? :NO IS THERE A CHANCE YOU COULD BE ? :NO ARE YOU BREAST FEEDING? :NO CURRENT MEDICATIONS TAKING LEVOTHYROXINE SODIUM 88 MCG TABLET 1 TAB(S) ORALLY ONCE A DAY TAKING NEXIUM 40 MG CAPSULE DELAYED RELEASE 1 CAPSULE ORALLY NEEDED TAKING SIMVASTATIN 20 MG TABLET 1 TABLET IN THE EVENING ORALLY ONCE A DAY TAKING ESCITALOPRAM OXALATE 10 MG TABLET 1 TABLET ORALLY ONCE A DAY TAKING TRAZODONE HCL 100 MG TABLET 1 1/2 TABLET AT BEDTIME ORALLY ONCE A DAY TAKING ROPINIROLE HCL 4 MG TABLET 1 TABLET 1 TO 3 HOURS BEFORE BEDTIME ORALLY ONCE A DAY TAKING PREMARIN 0.625 MG/GM CREAM DIRECTED VAGINAL TAKING ESTRACE 0.1 MG/GM CREAM 0.5 GM VAGINAL EVERY NIGHT X 14 THEN TWICE A WEEK TAKING GABAPENTIN 400 MG CAPSULE DIRECTED ORALLY FOR PAIN THREE TIMES DAILY MDD3 TAKING IBUPROFEN 800 MG TABLET 1 TABLET WITH FOOD OR MILK NEEDED ORALLY EVERY 6 HOURS NEEDED MDD3 TAKING NORCO 5-325 MG TABLET 1 TABLET ORALLY EVERY 6 HRS PRN PAIN MDD=3 CHRONIC PAIN CATEGORY D CHRONIC PAIN 90 DAY SUPPLY TAKING HYDROCODONE-ACETAMINOPHEN 5-325 MG TABLET 1 TABLET NEEDED ORALLY EVERY 6 HRS PRN PAIN MDD 3 CATEGORY D CHRONIC PAIN MEDICATION 3 MONTHS SUPPLY TAKING LIDOCAINE 5 % PATCH 2 PATCHS TO INTACT SKIN REMOVE AFTER 12 HOURS EXTERNALLY ON 12 HRS/OFF 12 HRS TO NECK AREA MDD=2, NOTES: WORKERS COMP TAKING CENTRUM SILVER ADULT 50+ - TABLET DIRECTED ORALLY TAKING VITAMIN D3 25 MCG (1000 UT) CAPSULE 1 CAPSULE ORALLY ONCE A DAY NOT-TAKING PROAIR HFA 108 (90 BASE) MCG/ACT AEROSOL SOLUTION 2 PUFFS NEEDED INHALATION EVERY 4-6 HRS NOT-TAKING CETIRIZINE HCL 10 MG TABLET 1 TABLET ORALLY ONCE A DAY NEEDED NOT-TAKING BACLOFEN 20 MG TABLET 1 TAB(S) ORALLY BID NOT-TAKING ELAVIL 25MG TABLET 1 TAB(S) ORAL ONCE A DAY NOT-TAKING AMITRIPTYLINE HCL 25 MG TABLET 3 TABLET ORALLY QHS NOT-TAKING LIDOCAINE VISCOUS 2 % SOLUTION 15 ML TO AFFECTED AREA NEEDED MOUTH/THROAT EVERY 3 HRS TO PAIN GUM AREAS NOT-TAKING VALIUM 5 MG TABLET 1 TABLET NEEDED ORALLY Q 8 HRS FOR SEVERE SPASM MDD=3S NOT-TAKING PROZAC 20 MG CAPSULE 1 CAPSULE IN THE MORNING ORALLY ONCE A DAY NOT-TAKING FLUOXETINE 40 MG CAPSULE 1 CAPSULE IN THE MORNING ORALLY ONCE A DAY MEDICATION LIST REVIEWED AND RECONCILED WITH THE PATIENT PAST MEDICAL HISTORY MYOFASCIAL PAIN SYNDROME IN HER BACK HYPOTHYROIDISM DEGENERATIVE DISC DISEASE THORACIC OUTLET SYNDROME PERIMENOPAUSAL, SYMPTOMATIC DEPRESSION FIBROMYALGIA VERTIGO RESTLESS LEG SYNDROME ALLERGIES N.K.D.A. SOCIAL HISTORY GENERAL: TOBACCO USE ARE YOU A:FORMER SMOKER HOW LONG HAS IT BEEN SINCE YOU LAST SMOKED?1-5 YEARS LATEX QUESTIONNAIRE LATEX ALLERGY : HAVE YOU EVER DEVELOPED ANY TYPE OF REACTION AFTER HANDLING LATEX PRODUCTS SUCH RUBBER GLOVES, CONDOMS, DIAPHRAGMS, BALLOONS, SOCKS, OR UNDERWEAR?YES HAS BEEN GETTING RASH FROM [place], BRACE FOR HER ELBOW, ELASTIC FROM PANTS AROUND WAISTLINE - PLEASE INDICATE :OTHER (DOCUMENT IN NOTES) LATEX ALLERGY : HAVE YOU EVER DEVELOPED ANY TYPE OF REACTION DURING OR AFTER DENTAL APPOINTMENT, VAGINAL/RECTAL EXAMINATION, SURGICAL PROCEDURE, OR ANY OTHER EXPOSURE?NO LATEX RISK : HAVE YOU EVER HAD ANY DIFFICULTY BREATHING OR HIVES AFTER EATING OR HANDLING ANY FRUITS, OR VEGETABLES; SUCH KIWI, BANANAS, STONE FRUITS, OR CHESTNUTSNO LATEX RISK : DO YOU HAVE A PREVIOUS PERSONAL HISTORY OF MORE THAN NINE SURGERIES, SPINA BIFIDA, OR REPEATED CATHERIZATIONS? NO LATEX RISK : ARE YOU FREQUENTLY EXPOSED TO LATEX PRODUCTS IN YOUR OCCUPATION?NO DATE ASKED : 12/29/2020 ALCOHOL USE: NO. ALCOHOL SCREENING DID YOU HAVE A DRINK CONTAINING ALCOHOL IN THE PAST YEAR?NO POINTS0 INTERPRETATIONNEGATIVE RECREATIONAL DRUG USE DRUG USE?NO CAFFEINE 2 CUPS DAILY. PENTECOSTALISM [id number] BUDDHISM LANGUAGE LANGUAGES SPOKEN:TRINIDADIAN EDUCATION LEVEL OF EDUCATION:NOT FINISHED HIGH SCHOOL 9TH GRADE LEARNING BARRIERS / SPECIAL NEEDS CHANGE FROM LAST VISIT?NO BARRIERS TO LEARNING?YES STATES SHE IS ILLITERATE HEARING IMPAIRED?NO VISION IMPAIRED?YES :CORRECTIVE LENSES COGNITIVELY IMPAIRED?NO READINESS TO LEARN?YES LEARNING PREFERENCES?YES :TAPES/VIDEOS, DEMONSTRATION/VERBAL INSTRUCTION LEARNING CAPABILITIES PRESENT?YES EMOTIONAL BARRIERS?NO SPECIAL DEVICES?YES :CANE, WALKER OCC. SOLDER SPRAYER NEEDED?NO DOMESTIC VIOLENCE DENIES. 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 DIET: REGULAR. EXERCISE: NONE. MARITAL STATUS: .. OTHERS AT HOME: NONE. PATIENT DESCRIBES PAIN :ACHING, HAVE IT ALL THE TIME, TENDER, THROBBING, SORE FROM 0-10, WHAT LEVEL IS YOUR PAIN TODAY?5 12/17/19 PRECIPITATING FACTORS LIFTING, ALL ACTIVITIES ALLEVIATING FACTORS REST, MEDICATIONS, MASSAGE - PFS REFERRAL NEEDED?NO CLERGY REFERRAL NEEDED?NO PUBLIC HEALTH REFERRAL NEEDED?NO HAS THE PATIENT BEEN EDUCATED REGARDING HIS/HER PLAN OF CARE?YES HAS THE PATIENT BEEN EDUCATED REGARDING PAIN, THE RISK FOR PAIN, THE IMPORTANCE OF EFFECTIVE PAIN MANAGEMENT, AND THE PAIN ASSESSMENT PROCESS?YES ADVANCE DIRECTIVE ADVANCE DIRECTIVE DISCUSSED WITH PATIENT:YES PT DOES NOT HAVE ANY ADVANCED DIRECTIVES AND DECLINED INFORMATION ON HCP AT THIS TIME. JS REVIEW OF SYSTEMS CONSTITUTIONAL: ANY RECENT FEVER NO . CHILLS NO . WEIGHT CHANGE OF UNKNOWN REASONS NO . GASTROENTEROLOGY: NEW UNEXPLAINABLE CHANGES IN BOWEL CONTROL NO . CONSTIPATION NO . GENITOURINARY: ANY NEW CHANGE IN BLADDER CONTROL? NO . NEUROLOGY: NEW ONSET DIZZINESS OR NEUROLOGICAL CHANGES NOT MENTIONED NO . NEW NUMBNESS OR PAIN PATTERNS NOT MENTIONED AND PERTINENT TO TODAY'S VISIT NO . CARDIOLOGY: NEW CHEST PRESSURE NO . PATIENT DENIES NO . RESPIRATORY: UNEXPLAINABLE COUGH NO . NEW SHORTNESS OF BREATH NO . VITAL SIGNS WT 175.8 LBS, HT 61 IN, BMI 33.21 INDEX, BP 109/55 MM HG, HR 89 /MIN, RR 18 /MIN, TEMP 98 F, OXYGEN SAT % 97%, SAFE IN ENV? (Y/N) YES, REVIEWED BY: THOMAS LEYVA MA. EXAMINATION GENERAL EXAMINATION: GENERALNO ACUTE DISTRESS, WELL NOURISHED AND HYDRATED. PSYCHAPPROPRIATE MOOD AND AFFECT . LUNGS:CLEAR TO AUSCULTATION BILATERALLY, NO WHEEZES, RHONCHI, RALES. HEART:NO MURMURS, REGULAR RATE AND RHYTHM. ASSESSMENTS CERVICAL DISC DISORDER WITH RADICULOPATHY OF CERVICAL REGION - M50.10 (PRIMARY), RISK: (NULL) TREATMENT CERVICAL DISC DISORDER WITH RADICULOPATHY OF CERVICAL REGION NOTES: 60-YEAR-OLD FEMALE IN FOR CHRONIC PAIN FOLLOW-UP. GIVEN PRESENTING SYMPTOMS RECOMMENDED CONTINUATION OF CURRENT MEDICATION REGIMEN WITH FOLLOW-UP IN 3 MONTHS. PATIENT HAS EXPRESSED UNDERSTANDING OF AND WAS IN AGREEMENT WITH TREATMENT PLAN. TIME TO ASK QUESTIONS AND EXPRESS CONCERNS. , ISTOP REGISTRY REVIEWED AND DEMONSTRATES COMPLLIANCE. (REF # [id number] ) BRINGS IN MEDICATIONS WHICH IS APPROPRIATE FOR WHAT WAS DISPENSED. RECENT URINE TOXICOLOGY REVIEWED. NO UNAUTHORIZED MEDICATIONS. NO ILLICIT SUBSTANCES AND PRESCRIBED MEDICATIONS WERE PRESENT. PROCEDURE CODES FA211 ESTABILISHED PATIENT [facility] CHARGE DISPOSITION & COMMUNICATION FOLLOW UP 3 MONTHS (REASON: NECK PAIN ) ELECTRONICALLY SIGNED BY JIMENEZ THOMAS ON 12/30/2020 AT 08:50 AM EDT DISCLAIMER : THIS IS A VISIT SUMMARY EXTRACTED FROM THE [employer] CHART. IT IS NOT A COPY OF THE [employer] PROGRESS NOTE. FANG
== END ==
LOC: M PAIN 13:30
PROVIDERS: ATTEND Family Medicine
DX: M50.10 Cervical disc disorder with radiculopathy, unspecified cervical region (principal); M79.18 Myalgia, other site; E03.9 Hypothyroidism, unspecified; F32.9 Major depressive disorder, single episode, unspecified; M79.7 Fibromyalgia; R42 Dizziness and giddiness; G25.81 Restless legs syndrome; Z87.891 Personal history of nicotine dependence; Z79.891 Long term (current) use of opiate analgesic; Z79.899 Other long term (current) drug therapy

== ENCOUNTER → 2021-03-22 | Outpatient (CLI) | payer OTHER, MEDICAID ==
[2021-03-22 10:04] LABS: BASO # 0.1 10^3/uL (0.0-0.2); BASO % 1.3 % (0.0-1.0); EOS # 0.2 10^3/uL (0.0-0.5); EOS % 4.2 % (0.0-3.0); HEMATOCRIT 39.2 % (36.0-47.0); HEMOGLOBIN 13.2 g/dl (12.0-15.5); LYMPH # 2.2 10^3/uL (1.5-5.0); MEAN CORPUSCULAR HEMOGLOBIN 30.3 pg (27.0-33.0); MEAN CORPUSCULAR HGB CONC 33.7 g/dl (32.0-36.5); MEAN CORPUSCULAR VOLUME 90.1 fl (80.0-96.0); MONO # 0.5 10^3/uL (0.0-0.8); MONO % 10.4 % (2.0-8.0); NEUTROPHILS # 1.9 10^3/uL (1.5-8.5); NEUTROPHILS % 38.9 % (36.0-66.0); PLATELET COUNT, AUTOMATED 242 10^3/uL (150-450); RED BLOOD COUNT 4.35 10^6/uL (4.00-5.40); WHITE BLOOD COUNT 4.8 10^3/uL (4.0-10.0)
[2021-03-22 10:23] LABS: HEMOGLOBIN A1c 5.7 %
[2021-03-22 10:45] LABS: ALBUMIN 3.7 GM/DL (3.2-5.2); ALT/SGPT 31 U/L (12-78); BILIRUBIN,TOTAL 0.5 MG/DL (0.2-1.0); BLOOD UREA NITROGEN 16 MG/DL (7-18); CALCIUM LEVEL 8.8 MG/DL (8.8-10.2); CARBON DIOXIDE LEVEL 28 MEQ/L (21-32); CHLORIDE LEVEL 107 MEQ/L (98-107); CHOLESTEROL LEVEL 182 MG/DL (<200); CHOLESTEROL RISK RATIO 2.983 (<5); CREATININE FOR GFR 0.81 MG/DL (0.55-1.30); GLOMERULAR FILTRATION RATE > 60.0 (>45); GLUCOSE, FASTING 104 MG/DL (70-100); HDL CHOLESTEROL 61 MG/DL (>40); LDL CHOLESTEROL 80 MG/DL (<100); NON-HDL-C 121 MG/DL; SODIUM LEVEL 140 MEQ/L (136-145); TOTAL PROTEIN 7.1 GM/DL (6.4-8.2); TRIGLYCERIDES LEVEL 207 MG/DL (<150)
[2021-03-22 10:46] LABS: MAGNESIUM LEVEL 2.2 MG/DL (1.8-2.4)
== END ==
LOC: M WUC 08:20
PROVIDERS: ATTEND Nurse Practitioner Family
DX: Z79.899 Other long term (current) drug therapy (principal); R73.03 Prediabetes; E78.5 Hyperlipidemia, unspecified; E03.9 Hypothyroidism, unspecified

== ENCOUNTER → 2021-03-27 | Outpatient (CLI) | payer OTHER ==
--- NOTE | 2021-03-29 04:14 | ECWPNPC ---
PATIENT NAME: RAYRAY SERRA : 1960 GENDER: FEMALE VISIT DATE: 03/27/2021 DISCHARGE DATE: 03/27/21 1343 VISIT LOCKED DATE TIME: PHYSICIAN: JUANA MCNEILL RESOURCE: JUANA MCNEILL REASON FOR APPOINTMENT 1. 3 MONTH NECK PAIN HISTORY OF PRESENT ILLNESS DEPRESSION SCREENING: PHQ-2 (2015 EDITION) LITTLE INTEREST OR PLEASURE IN DOING THINGS?NOT AT ALL FEELING DOWN, DEPRESSED, OR HOPELESS?NOT AT ALL TOTAL SCORE0 GENERAL: HPI 60-YEAR-OLD FEMALE IN FOR CHRONIC PAIN FOLLOW-UP. SHE RATES HER PAIN CURRENTLY AT A 6 OUT OF 10 AND DESCRIBES IT A PRESSURE. PATIENT FEELS HER MEDICATIONS ARE WORKING WELL AND DENIES MED SIDE EFFECTS AT THIS TIME. DOI 08/18/1993. -. FALL RISK SCREENING: SCREENING : NO FALLS REPORTED IN THE LAST YEAR. PAIN SCREENING: PATIENT HAS A COMPLAINT OF ACUTE OR CHRONIC PAIN :YES LOCATION OF PAIN:NECK INTENSITY OF PAIN (SCALE OF 1 TO 10):6 WHAT DOES YOUR PAIN FEEL LIKE:CONTINOUS, OTHER PRESSURE DURATION:CONTINOUS, CONSTANT, ALL DAY PAIN IS INCREASED BY:ACTIVITIES PAIN IS DECREASED BY:USE OF PAIN MEDICATIONS NURSING NOTE: -. PAIN CENTER INTAKE QUESTIONS: DO YOU HAVE A HISTORY OF MRSA? :NO DO YOU TAKE A BLOOD THINNERS? :NO DO YOU HAVE ANY BLEEDING DISORDERS? :NO ANY NEW NUMBNESS OR WEAKNESS IN YOUR LEGS OR ARMS? :YES BILATERAL HANDS PAIN ANY PACEMAKER,DEFIBRILLATOR, OR DORSAL COLUMN STIMULATOR? :NO DO YOU HAVE ANY RASHES OR OPEN SORES? :YES RASH- GENERALIZED ARE YOU ALLERGIC TO IV DYE? :NO ARE YOU DIABETIC? :NO ANY NEW PROBLEMS WITH YOUR MEDICATIONS? :NO HAVE YOU RECEIVED A VACCINE IN THE PAST 30 DAYS? :YES IF SO WHAT VACCINE AND WHEN? SECOND COVID VACCINATION 11/22/2020 DO YOU PLAN TO RECEIVE A VACCINE IN THE NEXT 21 DAYS? :NO DO YOU NEED ANY PRESCRIPTION? :YES LIDOCAINE 5 % PATCH DO YOU TAKE ANY IMMUNOSUPPRESSIVE MEDICATIONS? :NO IS THERE A CHANCE YOU COULD BE ? :NO ARE YOU BREAST FEEDING? :NO CURRENT MEDICATIONS TAKING LEVOTHYROXINE SODIUM 88 MCG TABLET 1 TAB(S) ORALLY ONCE A DAY TAKING NEXIUM 40 MG CAPSULE DELAYED RELEASE 1 CAPSULE ORALLY NEEDED TAKING SIMVASTATIN 20 MG TABLET 1 TABLET IN THE EVENING ORALLY ONCE A DAY TAKING ESCITALOPRAM OXALATE 10 MG TABLET 1 TABLET ORALLY ONCE A DAY TAKING TRAZODONE HCL 100 MG TABLET 1 1/2 TABLET AT BEDTIME ORALLY ONCE A DAY TAKING ROPINIROLE HCL 4 MG TABLET 1 TABLET 1 TO 3 HOURS BEFORE BEDTIME ORALLY ONCE A DAY TAKING PREMARIN 0.625 MG/GM CREAM DIRECTED VAGINAL TAKING GABAPENTIN 400 MG CAPSULE DIRECTED ORALLY FOR PAIN THREE TIMES DAILY MDD3 TAKING IBUPROFEN 800 MG TABLET 1 TABLET WITH FOOD OR MILK NEEDED ORALLY EVERY 6 HOURS NEEDED MDD3 TAKING LIDOCAINE 5 % PATCH 2 PATCHS TO INTACT SKIN REMOVE AFTER 12 HOURS EXTERNALLY ON 12 HRS/OFF 12 HRS TO NECK AREA MDD=2, NOTES: WORKERS COMP TAKING CENTRUM SILVER ADULT 50+ - TABLET DIRECTED ORALLY TAKING VITAMIN D3 25 MCG (1000 UT) CAPSULE 1 CAPSULE ORALLY ONCE A DAY TAKING HYDROCODONE-ACETAMINOPHEN 5-325 MG TABLET 1 TABLET NEEDED ORALLY EVERY 6 HRS PRN PAIN MDD 3 CATEGORY D CHRONIC PAIN MEDICATION 3 MONTHS SUPPLY NOT-TAKING ESTRACE 0.1 MG/GM CREAM 0.5 GM VAGINAL EVERY NIGHT X 14 THEN TWICE A WEEK NOT-TAKING NORCO 5-325 MG TABLET 1 TABLET ORALLY EVERY 6 HRS PRN PAIN MDD=3 CHRONIC PAIN CATEGORY D CHRONIC PAIN 90 DAY SUPPLY NOT-TAKING PROAIR HFA 108 (90 BASE) MCG/ACT AEROSOL SOLUTION 2 PUFFS NEEDED INHALATION EVERY 4-6 HRS NOT-TAKING CETIRIZINE HCL 10 MG TABLET 1 TABLET ORALLY ONCE A DAY NEEDED NOT-TAKING BACLOFEN 20 MG TABLET 1 TAB(S) ORALLY BID NOT-TAKING ELAVIL 25MG TABLET 1 TAB(S) ORAL ONCE A DAY NOT-TAKING AMITRIPTYLINE HCL 25 MG TABLET 3 TABLET ORALLY QHS NOT-TAKING LIDOCAINE VISCOUS 2 % SOLUTION 15 ML TO AFFECTED AREA NEEDED MOUTH/THROAT EVERY 3 HRS TO PAIN GUM AREAS NOT-TAKING VALIUM 5 MG TABLET 1 TABLET NEEDED ORALLY Q 8 HRS FOR SEVERE SPASM MDD=3S NOT-TAKING PROZAC 20 MG CAPSULE 1 CAPSULE IN THE MORNING ORALLY ONCE A DAY NOT-TAKING FLUOXETINE 40 MG CAPSULE 1 CAPSULE IN THE MORNING ORALLY ONCE A DAY MEDICATION LIST REVIEWED AND RECONCILED WITH THE PATIENT PAST MEDICAL HISTORY MYOFASCIAL PAIN SYNDROME IN HER BACK HYPOTHYROIDISM DEGENERATIVE DISC DISEASE THORACIC OUTLET SYNDROME PERIMENOPAUSAL, SYMPTOMATIC DEPRESSION FIBROMYALGIA VERTIGO RESTLESS LEG SYNDROME ALLERGIES N.K.D.A. SOCIAL HISTORY GENERAL: TOBACCO USE ARE YOU A:FORMER SMOKER HOW LONG HAS IT BEEN SINCE YOU LAST SMOKED?1-5 YEARS LATEX QUESTIONNAIRE LATEX ALLERGY : HAVE YOU EVER DEVELOPED ANY TYPE OF REACTION AFTER HANDLING LATEX PRODUCTS SUCH RUBBER GLOVES, CONDOMS, DIAPHRAGMS, BALLOONS, SOCKS, OR UNDERWEAR?YES HAS BEEN GETTING RASH FROM [place], BRACE FOR HER ELBOW, ELASTIC FROM PANTS AROUND WAISTLINE - PLEASE INDICATE :OTHER (DOCUMENT IN NOTES) LATEX ALLERGY : HAVE YOU EVER DEVELOPED ANY TYPE OF REACTION DURING OR AFTER DENTAL APPOINTMENT, VAGINAL/RECTAL EXAMINATION, SURGICAL PROCEDURE, OR ANY OTHER EXPOSURE?NO LATEX RISK : HAVE YOU EVER HAD ANY DIFFICULTY BREATHING OR HIVES AFTER EATING OR HANDLING ANY FRUITS, OR VEGETABLES; SUCH KIWI, BANANAS, STONE FRUITS, OR CHESTNUTSNO LATEX RISK : DO YOU HAVE A PREVIOUS PERSONAL HISTORY OF MORE THAN NINE SURGERIES, SPINA BIFIDA, OR REPEATED CATHERIZATIONS? NO LATEX RISK : ARE YOU FREQUENTLY EXPOSED TO LATEX PRODUCTS IN YOUR OCCUPATION?NO DATE ASKED : 03/27/2021 ALCOHOL USE: NO. ALCOHOL SCREENING DID YOU HAVE A DRINK CONTAINING ALCOHOL IN THE PAST YEAR?NO POINTS0 INTERPRETATIONNEGATIVE RECREATIONAL DRUG USE DRUG USE?NO CAFFEINE 2 CUPS DAILY. ZOROASTRIANISM [id number] CONGREGATIONAL LANGUAGE LANGUAGES SPOKEN:CHADIAN EDUCATION LEVEL OF EDUCATION:NOT FINISHED HIGH SCHOOL 9TH GRADE LEARNING BARRIERS / SPECIAL NEEDS CHANGE FROM LAST VISIT?NO BARRIERS TO LEARNING?YES STATES SHE IS ILLITERATE HEARING IMPAIRED?NO VISION IMPAIRED?YES :CORRECTIVE LENSES COGNITIVELY IMPAIRED?NO READINESS TO LEARN?YES LEARNING PREFERENCES?YES :TAPES/VIDEOS, DEMONSTRATION/VERBAL INSTRUCTION LEARNING CAPABILITIES PRESENT?YES EMOTIONAL BARRIERS?NO SPECIAL DEVICES?YES :CANE, WALKER OCC. RADIO INTERFERENCE INVESTIGATOR NEEDED?NO DOMESTIC VIOLENCE DENIES. 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 DIET: REGULAR. EXERCISE: NONE. MARITAL STATUS: .. OTHERS AT HOME: NONE. PATIENT DESCRIBES PAIN :ACHING, HAVE IT ALL THE TIME, TENDER, THROBBING, SORE FROM 0-10, WHAT LEVEL IS YOUR PAIN TODAY?5 12/17/19 PRECIPITATING FACTORS LIFTING, ALL ACTIVITIES ALLEVIATING FACTORS REST, MEDICATIONS, MASSAGE - PFS REFERRAL NEEDED?NO CLERGY REFERRAL NEEDED?NO PUBLIC HEALTH REFERRAL NEEDED?NO HAS THE PATIENT BEEN EDUCATED REGARDING HIS/HER PLAN OF CARE?YES HAS THE PATIENT BEEN EDUCATED REGARDING PAIN, THE RISK FOR PAIN, THE IMPORTANCE OF EFFECTIVE PAIN MANAGEMENT, AND THE PAIN ASSESSMENT PROCESS?YES ADVANCE DIRECTIVE ADVANCE DIRECTIVE DISCUSSED WITH PATIENT:YES PT DOES NOT HAVE ANY ADVANCED DIRECTIVES AND DECLINED INFORMATION ON HCP AT THIS TIME. JS REVIEW OF SYSTEMS CONSTITUTIONAL: ANY RECENT FEVER NO, NO . CHILLS NO, NO . WEIGHT CHANGE OF UNKNOWN REASONS NO, NO . GASTROENTEROLOGY: NEW UNEXPLAINABLE CHANGES IN BOWEL CONTROL NO, NO . CONSTIPATION NO, NO . GENITOURINARY: ANY NEW CHANGE IN BLADDER CONTROL? NO, NO . NEUROLOGY: NEW ONSET DIZZINESS OR NEUROLOGICAL CHANGES NOT MENTIONED NO, NO . NEW NUMBNESS OR PAIN PATTERNS NOT MENTIONED AND PERTINENT TO TODAY'S VISIT NO, NO . CARDIOLOGY: NEW CHEST PRESSURE NO, NO . PATIENT DENIES NO, NO . RESPIRATORY: UNEXPLAINABLE COUGH NO, NO . NEW SHORTNESS OF BREATH NO, NO . VITAL SIGNS WT 177.8 LBS, HT 61 IN, BMI 33.59 INDEX, BP 115/60 MM HG, HR 76 /MIN, RR 18 /MIN, TEMP 96.8 F, OXYGEN SAT % 96%, SAFE IN ENV? (Y/N) YES, NA INITIALS SC 13:25T.GWENDOLYN FRANCO. EXAMINATION GENERAL EXAMINATION: GENERALNO ACUTE DISTRESS, WELL NOURISHED AND HYDRATED. PSYCHAPPROPRIATE MOOD AND AFFECT . LUNGS:CLEAR TO AUSCULTATION BILATERALLY, NO WHEEZES, RHONCHI, RALES. HEART:NO MURMURS, REGULAR RATE AND RHYTHM. ASSESSMENTS CERVICALGIA - M54.2 CHRONIC PRESCRIPTION OPIATE USE - Z79.891 CERVICAL DISC DISORDER WITH RADICULOPATHY OF CERVICAL REGION - M50.10, RISK: (NULL) TREATMENT CHRONIC PRESCRIPTION OPIATE USE LAB: URINE TEST GROUP PAT SNOW 03/27/2021 1:40:55 PM > LAST DOSE; GABAPENTINE 03/27/2021, HYDROCODONE 03/27/2021 CERVICAL DISC DISORDER WITH RADICULOPATHY OF CERVICAL REGION NOTES: 60-YEAR-OLD FEMALE IN FOR CHRONIC PAIN FOLLOW-UP. GIVEN PRESENTING SYMPTOMS RECOMMEND CONTINUATION OF CURRENT MEDICATION REGIMEN WITH FOLLOW-UP IN 3 MONTHS. PATIENT HAS EXPRESSED UNDERSTANDING OF AND WAS IN AGREEMENT WITH TREATMENT PLAN. GIVEN TIME TO ASK QUESTIONS AND EXPRESS CONCERNS. ISTOP REGISTRY REVIEWED AND DEMONSTRATES COMPLLIANCE. (REF #[id number] ) BRINGS IN MEDICATIONS WHICH IS APPROPRIATE FOR WHAT WAS DISPENSED. RECENT URINE TOXICOLOGY REVIEWED. NO UNAUTHORIZED MEDICATIONS. NO ILLICIT SUBSTANCES AND PRESCRIBED MEDICATIONS WERE PRESENT. PROCEDURES PN WORKMANS' COMP OPINION IN YOUR OPINION, WAS THE INCIDENT THAT THE PATIENT DESCRIBED THE COMPETENT MEDICAL CAUSE OF THIS INJURY/ILLNESS? YES ARE THE PATIENT'S COMPLAINTS CONSISTENT WITH HIS/HER HISTORY OF THE INJURY/ILLNESS? YES IS THE PATIENT'S HISTORY OF THE INJURY/ILLNESS CONSISTENT WITH YOUR OBJECTIVE FINDING? YES WHAT IS THE PERCENTAGE OF TEMPORARY IMPAIRMENT? MODERATE TO MARKED = 66.7% IS THE PATIENT WORKING? YES DOCTOR ON SITE: MARJORIE PEARSON MD PROCEDURE CODES FA211 ESTABILISHED PATIENT [facility] CHARGE DISPOSITION & COMMUNICATION FOLLOW UP 3 MONTHS (REASON: NECK PAIN ) ELECTRONICALLY SIGNED BY JIMENEZ THOMAS ON 03/28/2021 AT 09:47 AM EDT DISCLAIMER : THIS IS A VISIT SUMMARY EXTRACTED FROM THE [employer] CHART. IT IS NOT A COPY OF THE [employer] PROGRESS NOTE. FANG
== END ==
LOC: M PAIN 13:30
PROVIDERS: ATTEND Family Medicine
DX: M50.10 Cervical disc disorder with radiculopathy, unspecified cervical region (principal); M79.18 Myalgia, other site; E03.9 Hypothyroidism, unspecified; F32.9 Major depressive disorder, single episode, unspecified; M79.7 Fibromyalgia; R42 Dizziness and giddiness; G25.81 Restless legs syndrome; Z79.891 Long term (current) use of opiate analgesic; Z87.891 Personal history of nicotine dependence; Z79.899 Other long term (current) drug therapy

== ENCOUNTER → 2021-06-13 | Outpatient (CLI) | payer OTHER, MEDICAID ==
[2021-06-13 09:06] LABS: BASO # 0.1 10^3/uL (0.0-0.2); BASO % 0.8 % (0.0-1.0); EOS # 0.2 10^3/uL (0.0-0.5); EOS % 2.4 % (0.0-3.0); HEMATOCRIT 40.1 % (36.0-47.0); HEMOGLOBIN 13.3 g/dl (12.0-15.5); LYMPH # 2.1 10^3/uL (1.5-5.0); LYMPH % 23.6 % (24.0-44.0); MEAN CORPUSCULAR HEMOGLOBIN 30.1 pg (27.0-33.0); MEAN CORPUSCULAR HGB CONC 33.2 g/dl (32.0-36.5); MEAN CORPUSCULAR VOLUME 90.7 fl (80.0-96.0); MONO # 0.6 10^3/uL (0.0-0.8); MONO % 6.3 % (2.0-8.0); NEUTROPHILS % 66.6 % (36.0-66.0); PLATELET COUNT, AUTOMATED 249 10^3/uL (150-450); RED BLOOD COUNT 4.42 10^6/uL (4.00-5.40)
[2021-06-13 09:33] LABS: HEMOGLOBIN A1c 5.6 %
[2021-06-13 09:38] LABS: ALBUMIN 3.7 GM/DL (3.2-5.2); ALT/SGPT 25 U/L (12-78); BILIRUBIN,TOTAL 0.4 MG/DL (0.2-1.0); BLOOD UREA NITROGEN 15 MG/DL (7-18); CALCIUM LEVEL 9.2 MG/DL (8.8-10.2); CARBON DIOXIDE LEVEL 29 MEQ/L (21-32); CHLORIDE LEVEL 107 MEQ/L (98-107); CHOLESTEROL LEVEL 167 MG/DL (<200); CHOLESTEROL RISK RATIO 2.879 (<5); CREATININE FOR GFR 0.82 MG/DL (0.55-1.30); GLOMERULAR FILTRATION RATE > 60.0 (>45); GLUCOSE, FASTING 98 MG/DL (70-100); HDL CHOLESTEROL 58 MG/DL (>40); LDL CHOLESTEROL 77 MG/DL (<100); MAGNESIUM LEVEL 2.1 MG/DL (1.8-2.4); NON-HDL-C 109 MG/DL; POTASSIUM SERUM 4.6 MEQ/L (3.5-5.1); SODIUM LEVEL 140 MEQ/L (136-145); TOTAL PROTEIN 7.1 GM/DL (6.4-8.2); TRIGLYCERIDES LEVEL 159 MG/DL (<150)
== END ==
LOC: M LAB 08:27
PROVIDERS: ATTEND Nurse Practitioner Family
DX: Z00.01 Encounter for general adult medical examination with abnormal findings (principal)

== ENCOUNTER → 2021-06-29 | Outpatient (CLI) | payer OTHER | LOC: M PAIN 13:30 | PROVIDERS: ATTEND Anesthesiology | DX: M54.2 Cervicalgia (principal); G89.29 Other chronic pain; E03.9 Hypothyroidism, unspecified; M79.7 Fibromyalgia; G25.81 Restless legs syndrome; Z86.59 Personal history of other mental and behavioral disorders; Z87.891 Personal history of nicotine dependence; Z79.899 Other long term (current) drug therapy ==

== ENCOUNTER → 2021-09-19 | Outpatient (CLI) | payer OTHER, MEDICARE | LOC: M WHC 13:36 | PROVIDERS: ATTEND Nurse Practitioner Women's Health | DX: Z12.31 Encounter for screening mammogram for malignant neoplasm of breast (principal) ==

== ENCOUNTER → 2021-10-05 | Outpatient (CLI) | payer OTHER | LOC: M PAIN 13:30 | PROVIDERS: ATTEND Nurse Practitioner Family | DX: M54.2 Cervicalgia (principal); M79.18 Myalgia, other site; E03.9 Hypothyroidism, unspecified; F32.A Depression, unspecified; M79.7 Fibromyalgia; R42 Dizziness and giddiness; G25.81 Restless legs syndrome; Z86.16 Personal history of COVID-19; Z87.891 Personal history of nicotine dependence; Z79.891 Long term (current) use of opiate analgesic; Z79.899 Other long term (current) drug therapy ==

== ENCOUNTER → 2021-10-30 | Outpatient (REF) | payer OTHER, MEDICARE, MEDICAID | LOC: M LAB REF 16:04 | PROVIDERS: ATTEND Ophthalmology | DX: H02.831 Dermatochalasis of right upper eyelid (principal); H02.834 Dermatochalasis of left upper eyelid ==

== ENCOUNTER → 2021-12-14 | Outpatient (CLI) | payer OTHER, MEDICARE, MEDICAID ==
[2021-12-14 13:00] LABS: BASO # 0.1 10^3/uL (0.0-0.2); BASO % 1.2 % (0.0-1.0); EOS # 0.2 10^3/uL (0.0-0.5); EOS % 3.3 % (0.0-3.0); HEMATOCRIT 38.4 % (36.0-47.0); HEMOGLOBIN 13.2 g/dl (12.0-15.5); LYMPH # 2.1 10^3/uL (1.5-5.0); LYMPH % 40.7 % (24.0-44.0); MEAN CORPUSCULAR HEMOGLOBIN 30.6 pg (27.0-33.0); MEAN CORPUSCULAR HGB CONC 34.4 g/dl (32.0-36.5); MEAN CORPUSCULAR VOLUME 89.1 fl (80.0-96.0); MONO # 0.3 10^3/uL (0.0-0.8); MONO % 6.6 % (2.0-8.0); NEUTROPHILS # 2.5 10^3/uL (1.5-8.5); PLATELET COUNT, AUTOMATED 269 10^3/uL (150-450); RED BLOOD COUNT 4.31 10^6/uL (4.00-5.40); WHITE BLOOD COUNT 5.1 10^3/uL (4.0-10.0)
[2021-12-14 13:28] LABS: C REACTIVE PROTEIN QUANTITATIV < 0.30 MG/DL (0.00-0.30); RHEUMATOID FACTOR QUANT < 10.0 IU/ML (<15.0); URIC ACID 3.8 MG/DL (2.6-6.0)
[2021-12-14 13:34] LABS: ERYTHROCYTE SEDIMENTATION RATE 9 mm/hr (0-30)
== END ==
LOC: M WUC 09:07
PROVIDERS: ATTEND Physician Assistant
DX: M51.36 Other intervertebral disc degeneration, lumbar region (principal)

== ENCOUNTER → 2022-01-05 | Outpatient (CLI) | payer OTHER | LOC: M PAIN 13:30 | PROVIDERS: ATTEND Nurse Practitioner Family | DX: M50.10 Cervical disc disorder with radiculopathy, unspecified cervical region (principal); G89.29 Other chronic pain; E03.9 Hypothyroidism, unspecified; M79.7 Fibromyalgia; G25.81 Restless legs syndrome; Z86.59 Personal history of other mental and behavioral disorders; Z87.891 Personal history of nicotine dependence; Z79.899 Other long term (current) drug therapy ==

== ENCOUNTER → 2022-02-19 | Outpatient (CLI) | payer OTHER, MEDICAID ==
[2022-02-19 09:45] LABS: BASO # 0.1 10^3/uL (0.0-0.2); BASO % 1.2 % (0.0-1.0); EOS # 0.2 10^3/uL (0.0-0.5); HEMATOCRIT 39.3 % (36.0-47.0); HEMOGLOBIN 13.2 g/dl (12.0-15.5); LYMPH # 2.2 10^3/uL (1.5-5.0); MEAN CORPUSCULAR HEMOGLOBIN 29.5 pg (27.0-33.0); MEAN CORPUSCULAR HGB CONC 33.6 g/dl (32.0-36.5); MEAN CORPUSCULAR VOLUME 87.9 fl (80.0-96.0); MONO # 0.4 10^3/uL (0.0-0.8); MONO % 8.8 % (2.0-8.0); NEUTROPHILS # 2.2 10^3/uL (1.5-8.5); NEUTROPHILS % 42.8 % (36.0-66.0); PLATELET COUNT, AUTOMATED 233 10^3/uL (150-450); RED BLOOD COUNT 4.47 10^6/uL (4.00-5.40)
[2022-02-19 10:12] LABS: HEMOGLOBIN A1c 5.7 %
[2022-02-19 10:46] LABS: ALT/SGPT 22 U/L (12-78); BILIRUBIN,TOTAL 0.6 MG/DL (0.2-1.0); BLOOD UREA NITROGEN 17 MG/DL (7-18); CALCIUM LEVEL 8.8 MG/DL (8.8-10.2); CARBON DIOXIDE LEVEL 27 MEQ/L (21-32); CHLORIDE LEVEL 106 MEQ/L (98-107); CHOLESTEROL LEVEL 183 MG/DL (<200); CREATININE FOR GFR 0.86 MG/DL (0.55-1.30); GLOMERULAR FILTRATION RATE > 60.0 (>45); GLUCOSE, FASTING 116 MG/DL (70-100); HDL CHOLESTEROL 63 MG/DL (>40); POTASSIUM SERUM 4.1 MEQ/L (3.5-5.1); SODIUM LEVEL 140 MEQ/L (136-145); TRIGLYCERIDES LEVEL 145 MG/DL (<150)
[2022-02-19 10:47] LABS: ALBUMIN 3.8 GM/DL (3.2-5.2); CHOLESTEROL RISK RATIO 2.904 (<5); LDL CHOLESTEROL 91 MG/DL (<100); MAGNESIUM LEVEL 2.3 MG/DL (1.8-2.4); NON-HDL-C 120 MG/DL; TOTAL 25(OH) VITAMIN D 62.9 NG/ML (30.0-100.0); TOTAL PROTEIN 6.9 GM/DL (6.4-8.2)
== END ==
LOC: M WUC 08:07
PROVIDERS: ATTEND Nurse Practitioner Family
DX: E78.00 Pure hypercholesterolemia, unspecified (principal); E83.42 Hypomagnesemia; Z00.01 Encounter for general adult medical examination with abnormal findings; E66.01 Morbid (severe) obesity due to excess calories

== ENCOUNTER → 2022-04-06 | Outpatient (CLI) | payer OTHER | LOC: M PAIN 10:15 | PROVIDERS: ATTEND Nurse Practitioner Family | DX: M50.10 Cervical disc disorder with radiculopathy, unspecified cervical region (principal); M79.18 Myalgia, other site; E03.9 Hypothyroidism, unspecified; F32.A Depression, unspecified; M79.7 Fibromyalgia; R42 Dizziness and giddiness; G25.81 Restless legs syndrome; Z86.16 Personal history of COVID-19; N95.1 Menopausal and female climacteric states; Z79.891 Long term (current) use of opiate analgesic; Z87.891 Personal history of nicotine dependence; Z79.890 Hormone replacement therapy; Z79.899 Other long term (current) drug therapy ==

== ENCOUNTER → 2022-05-08 | Outpatient (CLI) | payer OTHER, MEDICAID | LOC: M RAD 10:00 | PROVIDERS: ATTEND Nurse Practitioner Family | DX: Z87.891 Personal history of nicotine dependence (principal) ==

== ENCOUNTER → 2022-06-01 | Outpatient (CLI) | payer OTHER | LOC: M PAIN 11:45 | PROVIDERS: ATTEND Nurse Practitioner Family | DX: M50.10 Cervical disc disorder with radiculopathy, unspecified cervical region (principal); M79.18 Myalgia, other site; E03.9 Hypothyroidism, unspecified; F32.A Depression, unspecified; M79.7 Fibromyalgia; R42 Dizziness and giddiness; G25.81 Restless legs syndrome; Z86.16 Personal history of COVID-19; Z79.890 Hormone replacement therapy; Z79.891 Long term (current) use of opiate analgesic; Z79.899 Other long term (current) drug therapy; Z87.891 Personal history of nicotine dependence ==

== ENCOUNTER → 2022-06-19 | Outpatient (CLI) | payer OTHER ==
[2022-06-19 12:16] LABS: BASO # 0.1 10^3/uL (0.0-0.2); EOS # 0.2 10^3/uL (0.0-0.5); EOS % 4.6 % (0.0-3.0); HEMATOCRIT 40.8 % (36.0-47.0); HEMOGLOBIN 13.6 g/dl (12.0-15.5); LYMPH # 2.1 10^3/uL (1.5-5.0); LYMPH % 43.3 % (24.0-44.0); MEAN CORPUSCULAR HEMOGLOBIN 30.2 pg (27.0-33.0); MEAN CORPUSCULAR HGB CONC 33.3 g/dl (32.0-36.5); MEAN CORPUSCULAR VOLUME 90.5 fl (80.0-96.0); MONO # 0.4 10^3/uL (0.0-0.8); MONO % 7.5 % (2.0-8.0); NEUTROPHILS # 2.1 10^3/uL (1.5-8.5); NEUTROPHILS % 43.2 % (36.0-66.0); PLATELET COUNT, AUTOMATED 254 10^3/uL (150-450); RED BLOOD COUNT 4.51 10^6/uL (4.00-5.40); WHITE BLOOD COUNT 4.8 10^3/uL (4.0-10.0)
[2022-06-19 12:56] LABS: BILIRUBIN,TOTAL 0.7 MG/DL (0.2-1.0); CHOLESTEROL RISK RATIO 3.223 (<5); CREATININE FOR GFR 1.04 MG/DL (0.55-1.30); GLOMERULAR FILTRATION RATE 57.2 (>45); MAGNESIUM LEVEL 2.2 MG/DL (1.8-2.4); THYROID STIMULATING HORMONE 6.96 uIU/ML (0.358-3.740); TOTAL PROTEIN 7.2 GM/DL (6.4-8.2)
[2022-06-19 13:23] LABS: TOTAL 25(OH) VITAMIN D 43.2 NG/ML (30.0-100.0)
[2022-06-19 14:31] LABS: HEMOGLOBIN A1c 5.7 %
== END ==
LOC: M WUC 09:58
PROVIDERS: ATTEND Nurse Practitioner Family
DX: Z00.01 Encounter for general adult medical examination with abnormal findings (principal); Z13.1 Encounter for screening for diabetes mellitus; E78.00 Pure hypercholesterolemia, unspecified; E83.42 Hypomagnesemia; E03.9 Hypothyroidism, unspecified; E55.9 Vitamin D deficiency, unspecified

== ENCOUNTER → 2022-07-17 | Outpatient (CLI) | payer MEDICARE, OTHER | LOC: M RAD 13:16 | PROVIDERS: ATTEND Nurse Practitioner Family | DX: M25.551 Pain in right hip (principal) ==

== ENCOUNTER → 2022-07-17 | Outpatient (CLI) | payer OTHER | LOC: M RAD 13:10 | PROVIDERS: ATTEND Nurse Practitioner Family | DX: M50.10 Cervical disc disorder with radiculopathy, unspecified cervical region (principal) ==

== ENCOUNTER → 2022-08-28 | Outpatient (CLI) | payer OTHER | LOC: M PAIN 14:30 | PROVIDERS: ATTEND Nurse Practitioner Family | DX: M50.10 Cervical disc disorder with radiculopathy, unspecified cervical region (principal); G89.29 Other chronic pain; E03.9 Hypothyroidism, unspecified; M79.7 Fibromyalgia; G25.81 Restless legs syndrome; Z86.59 Personal history of other mental and behavioral disorders; Z87.891 Personal history of nicotine dependence; Z79.890 Hormone replacement therapy; Z79.899 Other long term (current) drug therapy ==

== ENCOUNTER → 2022-09-24 | Outpatient (CLI) | payer OTHER ==
[2022-09-24 13:57] LABS: BASO # 0.1 10^3/uL (0.0-0.2); BASO % 1.3 % (0.0-1.0); EOS # 0.2 10^3/uL (0.0-0.5); EOS % 3.3 % (0.0-3.0); HEMATOCRIT 38.1 % (36.0-47.0); HEMOGLOBIN 12.7 g/dl (12.0-15.5); LYMPH # 2.1 10^3/uL (1.5-5.0); MEAN CORPUSCULAR HEMOGLOBIN 30.7 pg (27.0-33.0); MEAN CORPUSCULAR HGB CONC 33.3 g/dl (32.0-36.5); MONO # 0.4 10^3/uL (0.0-0.8); MONO % 8.1 % (2.0-8.0); NEUTROPHILS # 2.1 10^3/uL (1.5-8.5); NEUTROPHILS % 43.1 % (36.0-66.0); PLATELET COUNT, AUTOMATED 228 10^3/uL (150-450); RED BLOOD COUNT 4.14 10^6/uL (4.00-5.40); WHITE BLOOD COUNT 4.8 10^3/uL (4.0-10.0)
[2022-09-24 14:17] LABS: HEMOGLOBIN A1c 5.4 % (4.0-6.0)
[2022-09-24 14:27] LABS: ALBUMIN 3.8 G/DL (3.2-5.2); ALKALINE PHOSPHATASE 51 U/L (46-116); ALT/SGPT 23 U/L (7.0-40); AST/SGOT 21 U/L (<34); BILIRUBIN,TOTAL 0.6 MG/DL (0.3-1.2); BLOOD UREA NITROGEN 16 MG/DL (9-23); CALCIUM LEVEL 9.2 MG/DL (8.3-10.6); CARBON DIOXIDE LEVEL 28 MMOL/L (20-31); CHLORIDE LEVEL 108 MMOL/L (98-107); CHOLESTEROL LEVEL 164 MG/DL (<200); CREATININE FOR GFR 0.79 MG/DL (0.55-1.30); GLOMERULAR FILTRATION RATE > 60.0 (>45); GLUCOSE, FASTING 106 MG/DL (74-106); HDL CHOLESTEROL 65.6 MG/DL (>40); LDL CHOLESTEROL 64.2 MG/DL (<100); NON-HDL-C 98 MG/DL; POTASSIUM SERUM 4.1 MMOL/L (3.5-5.1); SODIUM LEVEL 140 MMOL/L (136-145); TOTAL PROTEIN 6.5 G/DL (5.7-8.2); TRIGLYCERIDES LEVEL 171 MG/DL (<150)
[2022-09-24 14:28] LABS: THYROID STIMULATING HORMONE 0.526 uIU/ML (0.55-4.78); TOTAL 25(OH) VITAMIN D 35.7 NG/ML (20.0-100.0)
== END ==
LOC: M WUC 10:35
PROVIDERS: ATTEND Nurse Practitioner Family
DX: Z00.01 Encounter for general adult medical examination with abnormal findings (principal); E78.00 Pure hypercholesterolemia, unspecified; E03.9 Hypothyroidism, unspecified; E55.9 Vitamin D deficiency, unspecified; R73.03 Prediabetes; Z79.899 Other long term (current) drug therapy

== ENCOUNTER → 2022-09-28 | Outpatient (CLI) | payer OTHER | LOC: M SOG 07:58 | PROVIDERS: ATTEND Orthopaedic Surgery | DX: M50.322 Other cervical disc degeneration at C5-C6 level (principal); M43.8X2 Other specified deforming dorsopathies, cervical region; Q76.6 Other congenital malformations of ribs ==

== ENCOUNTER → 2022-11-01 | Outpatient (CLI) | payer OTHER | LOC: M PAIN 14:00 | PROVIDERS: ATTEND Nurse Practitioner Family | DX: M50.10 Cervical disc disorder with radiculopathy, unspecified cervical region (principal); M79.18 Myalgia, other site; E03.9 Hypothyroidism, unspecified; F32.A Depression, unspecified; M79.7 Fibromyalgia; R42 Dizziness and giddiness; G25.81 Restless legs syndrome; Z86.16 Personal history of COVID-19; Z87.891 Personal history of nicotine dependence; Z79.891 Long term (current) use of opiate analgesic; Z79.890 Hormone replacement therapy; Z79.899 Other long term (current) drug therapy ==

== ENCOUNTER → 2023-02-04 | Outpatient (CLI) | payer OTHER | LOC: M PAIN 09:00 | PROVIDERS: ATTEND Nurse Practitioner Family | DX: M50.10 Cervical disc disorder with radiculopathy, unspecified cervical region (principal); M79.18 Myalgia, other site; E03.9 Hypothyroidism, unspecified; F32.A Depression, unspecified; M79.7 Fibromyalgia; G25.81 Restless legs syndrome; R42 Dizziness and giddiness; Z87.891 Personal history of nicotine dependence; Z79.890 Hormone replacement therapy; Z79.891 Long term (current) use of opiate analgesic; Z79.899 Other long term (current) drug therapy ==

== ENCOUNTER → 2023-05-23 | Outpatient (CLI) | payer OTHER | LOC: M PAIN 14:30 | PROVIDERS: ATTEND Nurse Practitioner Family | DX: M96.1 Postlaminectomy syndrome, not elsewhere classified (principal); Z79.891 Long term (current) use of opiate analgesic; M79.18 Myalgia, other site; E03.9 Hypothyroidism, unspecified; G54.0 Brachial plexus disorders; F32.A Depression, unspecified; R42 Dizziness and giddiness; G25.81 Restless legs syndrome; Z87.891 Personal history of nicotine dependence; Z79.890 Hormone replacement therapy; Z79.899 Other long term (current) drug therapy ==

== ENCOUNTER → 2023-06-14 | Outpatient (CLI) | payer OTHER | LOC: M RAD 14:28 | PROVIDERS: ATTEND Physician Assistant | DX: Z87.891 Personal history of nicotine dependence (principal) ==

== ENCOUNTER → 2023-06-14 | Outpatient (CLI) | payer OTHER | LOC: M WHC 09:00 | PROVIDERS: ATTEND Physician Assistant | DX: R10.9 Unspecified abdominal pain (principal); Z12.2 Encounter for screening for malignant neoplasm of respiratory organs; Z87.891 Personal history of nicotine dependence ==

== ENCOUNTER → 2023-06-18 | Outpatient (CLI) | payer OTHER ==
[2023-06-18 13:32] LABS: LIPASE 37 U/L (12-53)
[2023-06-18 13:34] LABS: ALBUMIN 3.7 G/DL (3.2-5.2); ALKALINE PHOSPHATASE 57 U/L (46-116); ALT/SGPT 26 U/L (7.0-40); AST/SGOT 17 U/L (<34); BILIRUBIN,TOTAL 0.5 MG/DL (0.3-1.2); BLOOD UREA NITROGEN 20 MG/DL (9-23); CALCIUM LEVEL 8.9 MG/DL (8.3-10.6); CARBON DIOXIDE LEVEL 26 MMOL/L (20-31); CHLORIDE LEVEL 108 MMOL/L (98-107); CREATININE FOR GFR 0.73 MG/DL (0.55-1.30); GLOMERULAR FILTRATION RATE > 60.0 (>45); GLUCOSE, FASTING 105 MG/DL (74-106); SODIUM LEVEL 142 MMOL/L (136-145); TOTAL PROTEIN 6.4 G/DL (5.7-8.2)
== END ==
LOC: M WUC 08:58
PROVIDERS: ATTEND Physician Assistant
DX: Z00.01 Encounter for general adult medical examination with abnormal findings (principal)

== ENCOUNTER → 2023-07-18 | Outpatient (CLI) | payer OTHER | LOC: M RAD 10:10 | PROVIDERS: ATTEND Physician Assistant | DX: M54.59 Other low back pain (principal) ==

== ENCOUNTER 2023-08-16 06:45 | Day surgery (SDC) | payer OTHER, MEDICAID ==
[~2023-08-16] VITALS: Ht 157.5 cm; Wt 77.5 kg
[~2023-08-16 06:45] MED LIST changes: +AMIT-255 PO; +BACL10TA2 PO; +DIAZ5TAB PO; +GABA-284 PO; +HYDR-3363 PO; +HYDR-4429 PO; +IBUP-1114 PO; +LEVO88TA3 PO; +LEXA1TAB2 PO; +LIDO5DIS41 TD; +NS 1,000 ML IV ONE; +OMEP10CASR PO; +SIMV20TA22 PO
[2023-08-16] MEDS ORDERED: propofoL 200 MG/20 ML VIAL As Ordered ONE (07:12)
[2023-08-16] MEDS ORDERED: LIDOCAINE 2% 100MG/5ML SDV (FOR ANES.) As Ordered ONE (07:18)
[2023-08-16 08:18] VITALS: TEMP 97.1
[2023-08-16 08:35] VITALS: BP 125/68; O2SAT 96
== END 2023-08-16 08:43 | disposition home or self-care (01) ==
LOC: M OPP 06:45
PROVIDERS: ATTEND Surgery
DX: Z12.11 Encounter for screening for malignant neoplasm of colon (principal); K57.30 Diverticulosis of large intestine without perforation or abscess without bleeding; K64.9 Unspecified hemorrhoids; K25.9 Gastric ulcer, unspecified as acute or chronic, without hemorrhage or perforation; R13.10 Dysphagia, unspecified; Z80.0 Family history of malignant neoplasm of digestive organs; K21.9 Gastro-esophageal reflux disease without esophagitis; E03.9 Hypothyroidism, unspecified; E78.00 Pure hypercholesterolemia, unspecified; Z79.899 Other long term (current) drug therapy; Z79.890 Hormone replacement therapy; F17.210 Nicotine dependence, cigarettes, uncomplicated; Z88.5 Allergy status to narcotic agent; Z88.8 Allergy status to other drugs, medicaments and biological substances

== ENCOUNTER → 2023-08-20 | Outpatient (CLI) | payer OTHER ==
[~2023-08-20] MED LIST changes: -NS 1,000 ML IV ONE
== END ==
LOC: M PAIN 15:30
PROVIDERS: ATTEND Nurse Practitioner Family
DX: M50.10 Cervical disc disorder with radiculopathy, unspecified cervical region (principal); G89.29 Other chronic pain; Z86.16 Personal history of COVID-19; Z80.0 Family history of malignant neoplasm of digestive organs; Z80.8 Family history of malignant neoplasm of other organs or systems; Z87.891 Personal history of nicotine dependence; Z79.899 Other long term (current) drug therapy

== ENCOUNTER → 2023-09-27 | Outpatient (CLI) | payer OTHER ==
[2023-09-27 06:46] LABS: BASO # 0.1 10^3/uL (0.0-0.2); BASO % 1.2 % (0.0-1.0); EOS # 0.3 10^3/uL (0.0-0.5); HEMATOCRIT 36.6 % (36.0-47.0); HEMOGLOBIN 12.4 g/dl (12.0-15.5); LYMPH # 1.7 10^3/uL (1.5-5.0); LYMPH % 25.2 % (24.0-44.0); MEAN CORPUSCULAR HEMOGLOBIN 30.6 pg (27.0-33.0); MEAN CORPUSCULAR HGB CONC 33.9 g/dl (32.0-36.5); MEAN CORPUSCULAR VOLUME 90.4 fl (80.0-96.0); MONO # 0.4 10^3/uL (0.0-0.8); NEUTROPHILS # 4.3 10^3/uL (1.5-8.5); NEUTROPHILS % 63.3 % (36.0-66.0); PLATELET COUNT, AUTOMATED 216 10^3/uL (150-450); RED BLOOD COUNT 4.05 10^6/uL (4.00-5.40); WHITE BLOOD COUNT 6.8 10^3/uL (4.0-10.0)
[2023-09-27 06:51] LABS: APPEARANCE, URINE CLEAR (CLEAR); BACTERIA, URINE AUTO NEGATIVE (NEGATIVE); BILIRUBIN, URINE AUTO NEGATIVE (NEGATIVE); BLOOD, URINE BLOOD NEGATIVE (NEGATIVE); COLOR, URINE STRAW (YELLOW); GLUCOSE, URINE (UA) AUTO NEGATIVE (NEGATIVE); KETONE, URINE AUTO NEGATIVE (NEGATIVE); LEUKOCYTE ESTERASE, URINE AUTO NEGATIVE (NEGATIVE); NITRITE, URINE AUTO NEGATIVE (NEGATIVE); PROTEIN, URINE AUTO NEGATIVE (NEGATIVE); RBC, URINE AUTO 0 /HPF (0-3); SPECIFIC GRAVITY URINE AUTO 1.004 (1.002-1.035); SQUAMOUS EPITHELIAL CELL UR AU 0 /HPF (0-6); UROBILINOGEN, URINE AUTO 0.2 mg/dL (0.0-2.0); WBC, URINE AUTO 0 /HPF (0-3)
[2023-09-27 07:02] LABS: ERYTHROCYTE SEDIMENTATION RATE 9 mm/hr (0-30)
[2023-09-27 07:08] LABS: C REACTIVE PROTEIN QUANTITATIV < 0.40 MG/DL (<1.0)
[2023-09-27 07:09] LABS: ALBUMIN 3.8 G/DL (3.2-5.2); ALKALINE PHOSPHATASE 49 U/L (46-116); ALT/SGPT 18 U/L (7.0-40); AST/SGOT 13 U/L (<34); BILIRUBIN,TOTAL 0.5 MG/DL (0.3-1.2); BLOOD UREA NITROGEN 16 MG/DL (9-23); CALCIUM LEVEL 8.3 MG/DL (8.3-10.6); CARBON DIOXIDE LEVEL 27 MMOL/L (20-31); CHLORIDE LEVEL 106 MMOL/L (98-107); CREATININE FOR GFR 0.69 MG/DL (0.55-1.30); GLOMERULAR FILTRATION RATE > 60.0 (>45); GLUCOSE, FASTING 99 MG/DL (74-106); POTASSIUM SERUM 4.1 MMOL/L (3.5-5.1); SODIUM LEVEL 138 MMOL/L (136-145); TOTAL PROTEIN 6.8 G/DL (5.7-8.2)
[2023-09-27 07:10] LABS: THYROID STIMULATING HORMONE 1.811 uIU/ML (0.55-4.78)
[2023-09-27 07:11] LABS: VITAMIN B12 LEVEL 632 PG/ML (211-911)
[2023-09-27 07:48] LABS: HIV 1&2 SCREEN NEGATIVE (NEGATIVE)
[2023-09-28 12:10] LABS: ANTINUCLEAR ANTIBODIES DIRECT Negative (Negative)
== END ==
LOC: M LAB 05:57
PROVIDERS: ATTEND Physician Assistant
DX: F41.9 Anxiety disorder, unspecified (principal); Z79.899 Other long term (current) drug therapy

== ENCOUNTER → 2023-10-17 | Outpatient (CLI) | payer OTHER | LOC: M EKG 15:01 | PROVIDERS: ATTEND Physician Assistant | DX: E66.9 Obesity, unspecified (principal) ==

== ENCOUNTER → 2023-11-25 | Outpatient (REF) | payer OTHER, MEDICAID | LOC: M LAB REF 17:28 | PROVIDERS: ATTEND Internal Medicine Endocrinology, Diabetes & Metabolism | DX: E04.1 Nontoxic single thyroid nodule (principal) ==

== ENCOUNTER → 2023-11-29 | Outpatient (CLI) | payer OTHER | LOC: M PAIN 15:30 | PROVIDERS: ATTEND Nurse Practitioner Family | DX: M54.2 Cervicalgia (principal); Z79.891 Long term (current) use of opiate analgesic; Z79.1 Long term (current) use of non-steroidal anti-inflammatories (NSAID); Z88.5 Allergy status to narcotic agent; Z88.8 Allergy status to other drugs, medicaments and biological substances ==

== ENCOUNTER → 2024-02-17 | Outpatient (CLI) | payer OTHER | LOC: M WHC 14:00 | PROVIDERS: ATTEND Nurse Practitioner Family | DX: Z12.31 Encounter for screening mammogram for malignant neoplasm of breast (principal); R92.323 Mammographic fibroglandular density, bilateral breasts ==

== ENCOUNTER → 2024-03-02 | Outpatient (CLI) | payer OTHER | LOC: M PAIN 15:00 | PROVIDERS: ATTEND Nurse Practitioner Family | DX: M54.2 Cervicalgia (principal); Z79.891 Long term (current) use of opiate analgesic; Z79.1 Long term (current) use of non-steroidal anti-inflammatories (NSAID); Z79.899 Other long term (current) drug therapy; Z87.891 Personal history of nicotine dependence ==

== ENCOUNTER → 2024-05-08 | Outpatient (CLI) | payer OTHER, MEDICAID | LOC: M SLEEP 20:00 | PROVIDERS: ATTEND Nurse Practitioner Adult Health | DX: R06.83 Snoring (principal) ==

== ENCOUNTER → 2024-06-04 | Outpatient (CLI) | payer OTHER ==
[~2024-06-04] MED LIST changes: +GABA-1172 PO; -GABA-282 PO
== END ==
LOC: M PAIN 15:00
PROVIDERS: ATTEND Nurse Practitioner Family
DX: M50.10 Cervical disc disorder with radiculopathy, unspecified cervical region (principal); Z79.891 Long term (current) use of opiate analgesic; G89.29 Other chronic pain; E03.9 Hypothyroidism, unspecified; F32.A Depression, unspecified; G25.81 Restless legs syndrome; M79.7 Fibromyalgia; Z87.891 Personal history of nicotine dependence; Z79.890 Hormone replacement therapy; Z79.899 Other long term (current) drug therapy

== ENCOUNTER → 2024-09-25 | Outpatient (REF) | payer OTHER | LOC: M LAB REF 17:33 | PROVIDERS: ATTEND Internal Medicine Endocrinology, Diabetes & Metabolism | DX: E04.2 Nontoxic multinodular goiter (principal) ==

== ENCOUNTER → 2024-09-28 | Outpatient (CLI) | payer OTHER | LOC: M PAIN 11:15 | PROVIDERS: ATTEND Nurse Practitioner Family | DX: M50.10 Cervical disc disorder with radiculopathy, unspecified cervical region (principal); G89.29 Other chronic pain; M79.18 Myalgia, other site; E03.9 Hypothyroidism, unspecified; Z87.891 Personal history of nicotine dependence; Z79.890 Hormone replacement therapy; Z79.891 Long term (current) use of opiate analgesic; Z79.899 Other long term (current) drug therapy ==

== ENCOUNTER → 2024-10-15 | Outpatient (CLI) | payer OTHER, MEDICAID | LOC: M RAD 14:22 | PROVIDERS: ATTEND Physician Assistant | DX: R22.1 Localized swelling, mass and lump, neck (principal) ==

== ENCOUNTER → 2024-10-20 | Outpatient (CLI) | payer OTHER | LOC: M RAD 10:30 | PROVIDERS: ATTEND Physician Assistant | DX: Z87.891 Personal history of nicotine dependence (principal) ==

== ENCOUNTER → 2024-12-02 | Outpatient (CLI) | payer OTHER ==
[2024-12-02 08:31] LABS: HEMATOCRIT 39.1 % (36.0-47.0); HEMOGLOBIN 13.3 g/dl (12.0-15.5); MEAN CORPUSCULAR HEMOGLOBIN 30.1 pg (27.0-33.0); MEAN CORPUSCULAR VOLUME 88.5 fl (80.0-96.0); PLATELET COUNT, AUTOMATED 238 10^3/uL (150-450); RED BLOOD COUNT 4.42 10^6/uL (4.00-5.40); WHITE BLOOD COUNT 5.4 10^3/uL (4.0-10.0)
[2024-12-02 08:39] LABS: HEMOGLOBIN A1c 5.3 % (4.0-6.0)
[2024-12-02 08:50] LABS: ALBUMIN 3.8 G/DL (3.2-5.2); ALKALINE PHOSPHATASE 46 U/L (35-104); ALT/SGPT 25 U/L (7.0-40); AST/SGOT 18 U/L (<34); BILIRUBIN,TOTAL 0.5 MG/DL (0.3-1.2); BLOOD UREA NITROGEN 15 MG/DL (9-23); CALCIUM LEVEL 9.1 MG/DL (8.3-10.6); CARBON DIOXIDE LEVEL 28 MMOL/L (20-31); CHLORIDE LEVEL 104 MMOL/L (98-107); CHOLESTEROL LEVEL 182 MG/DL (<200); CHOLESTEROL RISK RATIO 2.82 (<5); CREATININE FOR GFR 0.68 MG/DL (0.55-1.30); GLOMERULAR FILTRATION RATE > 60.0 (>45); GLUCOSE, FASTING 112 MG/DL (74-106); HDL CHOLESTEROL 64.5 MG/DL (>40); LDL CHOLESTEROL 79.3 MG/DL (<100); NON-HDL-C 117.5 MG/DL; POTASSIUM SERUM 4.3 MMOL/L (3.5-5.1); SODIUM LEVEL 140 MMOL/L (136-145); TOTAL PROTEIN 6.8 G/DL (5.7-8.2); TRIGLYCERIDES LEVEL 191 MG/DL (<150)
[2024-12-02 08:52] LABS: THYROID STIMULATING HORMONE 0.735 uIU/ML (0.55-4.78)
== END ==
LOC: M LAB 07:42
PROVIDERS: ATTEND Physician Assistant
DX: M79.675 Pain in left toe(s) (principal); E78.00 Pure hypercholesterolemia, unspecified

== ENCOUNTER → 2024-12-23 | Outpatient (CLI) | payer OTHER | LOC: M SLEEP 20:00 | PROVIDERS: ATTEND Nurse Practitioner Adult Health | DX: G47.33 Obstructive sleep apnea (adult) (pediatric) (principal) ==

== ENCOUNTER → 2025-06-28 | Outpatient (CLI) | payer OTHER, MEDICAID ==
[~2025-06-28] MED LIST changes: +LIDO1ADH93 TD; -LIDO5DIS41 TD
[2025-06-28 08:41] LABS: PLATELET COUNT, AUTOMATED 261 10^3/uL (150-450)
[2025-06-28 09:03] LABS: ALT/SGPT 20.0 U/L (7.0-40); AST/SGOT 19.0 U/L (<34); CALCIUM LEVEL 9.0 MG/DL (8.3-10.6); CARBON DIOXIDE LEVEL 28.0 MMOL/L (20-31); CHLORIDE LEVEL 104.0 MMOL/L (98-107); CHOLESTEROL LEVEL 171.0 MG/DL (<200); CHOLESTEROL RISK RATIO 2.68 (<5); CREATININE FOR GFR 0.79 MG/DL (0.55-1.30); GLOMERULAR FILTRATION RATE 83.0 (>45); LDL CHOLESTEROL 81.5 MG/DL (<100); NON-HDL-C 107.3 MG/DL; POTASSIUM SERUM 4.1 MMOL/L (3.5-5.1); SODIUM LEVEL 141.0 MMOL/L (136-145); TRIGLYCERIDES LEVEL 129.0 MG/DL (<150)
== END ==
LOC: M LAB 07:28
PROVIDERS: ATTEND Physician Assistant
DX: M79.675 Pain in left toe(s) (principal); E03.9 Hypothyroidism, unspecified; E66.9 Obesity, unspecified